=== PATIENT | female | born 1950 | race Caucasian/White ===

== ENCOUNTER 2020-05-07 06:40 | Outpatient (NON) | payer MEDICARE, SELFPAY ==
[2020-05-07 17:47] LABS: SARS-CoV-2 RNA PCR Negative
== END 2020-05-07 06:41 ==
PROVIDERS: PCP Internal Medicine
DX: Z20.828 Contact with and (suspected) exposure to other viral communicable diseases (principal); R05 Cough
CPT/HCPCS: 87635; C9803; U0003

== ENCOUNTER → 2020-09-26 11:18 | Outpatient (CLI) | payer MEDICARE, SELFPAY ==
--- NOTE | ~2020-09-26 | MR_ITS ---
EXAMINATION: MR brain/brain stem wo con EXAM DATE: 09/26/2020 12:07 INDICATION: R41.3 - Other amnesia amnesia, unable to focus, difficulty finding words alteration. TECHNIQUE: Magnetic resonance imaging (MRI) of the brain/brain stem obtained without contrast. Daryl chapa T1, axial diffusion, gradient echo (T2*), T1, T2, FLAIR sequences obtained. Comparison is made to prior examination from 08/29/2017. FINDINGS: There are no areas of restricted diffusion to suggest acute infarction. There is no acute hemorrhage seen on the T2*, a hemosiderin sensitive sequence. No intraparenchymal brain mass lesion. There is periventricular and subcortical T2/FLAIR signal hyperintensity, nonspecific but probably re lated to small vessel ischemic disease (microangiopathy). There are no extra-axial collections. Fl ow voids are seen in the cerebral arteries on the T2-weighted sequences consistent with their expecte d patency. The orbits are unremarkable. Soft tissue is unremarkable. IMPRESSION: 1. No acute intracranial findings. 2. Mild microangiopathy. Reviewed, dictated and finalized at location A. 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
== END ==
PROVIDERS: Visit Provider Family Medicine
DX: R41.3 Other amnesia (principal); R93.0 Abnormal findings on diagnostic imaging of skull and head, not elsewhere classified
CPT/HCPCS: 70551

== ENCOUNTER → 2020-11-14 09:18 | Outpatient (CLI) | payer MEDICARE, SELFPAY ==
--- NOTE | ~2020-11-14 | DEXA_ITS ---
Bone Density Report Name: Sheila Daily Age: 70 Sex: Female Ethnicity: White Date of : 1950 Indication: postmenopausal; screening for osteoporosis; height loss; history of glucocorticoids; asthma or emphysema; hysterectomy; Referring Provider: PAVAN ARGUETA Study: Bone densitometry was performed. Exam Date: November 14, 2020 Accession number: [id number] Bone Density: Region BMD T-score Z-score Classification AP Spine (L1-L4) 0.999 -0.4 1.7 Normal Femoral Neck (Left) 0.584 -2.4 -0.5 Osteopenia Total Hip (Left) 0.833 -0.9 0.7 Normal Femoral Neck (Right) 0.608 -2.2 -0.3 Osteopenia Total Hip (Right) 0.776 -1.4 0.2 Osteopenia Total Hip Mean 0.805 -1.2 0.5 Osteopenia World Health Organization criteria for BMD impression classify patients as: Normal (T-score at or above -1.0), Osteopenia (T-score between -1.0 and -2.5), or Osteoporosis (T-score at or below -2.5). 10-year Fracture Risk(1): Major Osteoporotic Fracture 20% Hip Fracture 5.2% Reported Risk Factors: [place] (), Neck BMD=0.584, BMI=37.9, glucocorticoids (1) FRAX(R) Version 3.08. Fracture probability calculated for an untreated patient. Fracture probability may be lower if the patient has received treatment. Clinical Information Provided by Patient: Has taken Glucocorticoids Has used the following medications: Vitamin D, Calcium, Xoliar injections, MTV, Prednisone in the past Has the following medical conditions: Asthma or Emphysema, Hysterectomy Patient maximum height was 66.5 Menopause Age: 42 No regular weight bearing exercise Drinks caffeinated beverages Onset of menses at age 12 Number of children 3 Impression: The patient has low bone mass, based on the Left Femoral Neck T-score. The patient has an estimated ten-year risk of hip fracture of 5.2% and an estimated ten-year risk of major fracture of 20%, based on the WHO FRAX algorithm. The patient has risk factors, including: history of glucocorticoid therapy. Discussion: BONE DENSITY IS LOW AT ONE OR MORE SKELETAL SITES. THE PATIENT'S BMD AND CLINICAL RISK FACTORS CONTRIBUTE TO THIS PATIENT'S HIGH RISK OF FRACTURE. This patient's lowest T-score is low at one or more skeletal sites. It meets the World Health Organization's (WHO) criteria for ?low bone mass? (T-score between -1.0 and -2.5). The patient's 10-year risk of hip fracture and 10 year risk of a major osteoporotic fracture as calculated by FRAX exceeds the threshold where pharmacological therapy is recommended by the National Osteoporosis Foundation (NOF). However, all treatment decisions require clinical judgment and consideration of individual patient factors, including patient preferences, comorbidities, previous drug use, risk factors not captured in the FRAX model (e.g., frailty, falls, vitamin D
--- NOTE | ~2020-11-14 | MM_ITS ---
EXAMINATION: MM screening migdalia BI w norma HISTORY: Screening mammogram TECHNIQUE: Craniocaudal and mediolateral oblique 3-D tomosynthesis images were obtained and synthetic 2-D images were generated. CAD analysis was submitted and interpreted. COMPARISON: 04/23/2019, 11/29/2016 bilateral digital screening mammogram examinations BREAST PARENCHYMAL COMPOSITION: The breasts are almost entirely fatty. FINDINGS: There is no evidence of suspicious mass, calcification, or architectural distortion to sugg est malignancy in either breast. There has been no suspicious interval change. IMPRESSION: 1. No mammographic evidence of malignancy. 2. Recommend routine screening mammography in one year. BI-RADS Category 1: Negative Reviewed, dictated and finalized at location A.
== END ==
PROVIDERS: PCP Family Medicine; Visit Provider Family Medicine
DX: Z12.31 Encounter for screening mammogram for malignant neoplasm of breast (principal); Z13.820 Encounter for screening for osteoporosis; Z78.0 Asymptomatic menopausal state; M85.852 Other specified disorders of bone density and structure, left thigh; M85.851 Other specified disorders of bone density and structure, right thigh
CPT/HCPCS: 77063; 77067; 77080

== ENCOUNTER 2020-12-22 11:29 | Emergency (ER) | payer MEDICARE, SELFPAY ==
--- NOTE | ~2020-12-22 | CT_ITS ---
EXAMINATION: CT cervical spine wo con DATE: 12/22/2020 12:37 INDICATION: Syncopal episode and fall with head injury. TECHNIQUE: Computed tomography (CT) of the cervical spine was performed without intravenous contrast. Automated exposure control and iterative reconstruction technique were employed. The dose-length pro duct was 472.38 mGy-cm. COMPARISON: Cervical spine MR dated 04/07/2016 FINDINGS: Straightening of the normal cervical lordosis. Vertebral body heights are normal. No fracture. Severe disc height loss at C4-C5 and C6-C7, moderate disc height loss at C5-C6 and mild disc height loss at the remaining levels from C2-C3 through T1-T2. 2.1 cm left thyroid nodule. Cervical soft tissues are otherwise unremarkable. Visualized airway and apices of the lungs are clear. The following disc leve ls are specifically discussed: C2-C3: There is no uncovertebral joint osteoarthritis. There is mild bilateral facet joint osteoarthr itis. There is no neural foraminal stenosis. There is no central canal stenosis. C3-C4: Disc is bulging. There is mild left and mild to moderate right uncovertebral joint osteoarthri tis. There is mild right and moderate left facet joint osteoarthritis. There is mild right and mild t o moderate left neural foraminal stenosis. There is no central canal stenosis. C4-C5: Posterior disc osteophyte complex. There is severe bilateral uncovertebral joint osteoarthriti s. There is mild bilateral facet joint osteoarthritis. There is moderate bilateral neural foraminal s tenosis. There is mild central canal stenosis. C5-C6: Posterior disc osteophyte complex. There is moderate left and severe right uncovertebral joint osteoarthritis. There is mild bilateral facet joint osteoarthritis. There is moderate bilateral neur al foraminal stenosis. There is mild central canal stenosis. C6-C7: Posterior disc osteophyte complex. There is severe bilateral uncovertebral joint osteoarthriti s. There is mild bilateral facet joint osteoarthritis. There is moderate right and moderate to severe left neural foraminal stenosis. There is mild central canal stenosis. C7-T1: There is no uncovertebral joint osteoarthritis. There is severe bilateral facet joint osteoart hritis. There is mild bilateral neural foraminal stenosis. There is no central canal stenosis. IMPRESSION: 1. Interval progression of moderate to severe cervical spondylosis. No acute osseous abnormality. 2. 2.1 cm left thyroid nodule. Consider follow-up thyroid ultrasound for risk stratification. Reviewed, dictated and finalized at location A. IMPRESSION: 1. Interval progression of moderate to severe cervical spondylosis. No acute os seous abnormality. 2. 2.1 cm left thyroid nodule. Consider follow-up thyroid ultrasound for risk s tratification.
--- NOTE | ~2020-12-22 | CT_ITS ---
EXAMINATION: CT abdomen pelvis w con DATE: 12/22/2020 12:36 INDICATION: Abdominal pain. TECHNIQUE: Computed tomography (CT) of the abdomen and pelvis was performed with 100 mL Omnipaque 350 intravenous contrast. Automated exposure control and iterative reconstruction technique were employe d. The dose-length product was 1384.38 mGy-cm. COMPARISON: None. FINDINGS: The visualized portions of the lung bases demonstrate mild atelectasis. No pleural effusion . The heart size is normal. No pericardial effusion. There is a small sliding hiatal hernia. There ar e surgical changes of the stomach. The liver and spleen are normal. The common duct is dilated to 11 mm status post cholecystectomy, likely not clinically significant given the normal liver function sean ts. The pancreas, adrenal glands, and left kidney are normal. There are cysts in right kidney measuri ng up to 15 mm. There are bilateral inguinal hernias containing fat. There are no dilated loops of stephanie wel. The appendix is not visualized. There are no pathologically enlarged lymph nodes. There is no fr ee intraperitoneal fluid. There is severe lower lumbar spondylosis. IMPRESSION: 1. Small sliding hiatal hernia. 2. Bilateral inguinal hernias containing fat. Reviewed, dictated and finalized at location A.
--- NOTE | ~2020-12-22 | CT_ITS ---
EXAMINATION: CT brain wo con DATE: 12/22/2020 12:37 INDICATION: Syncopal episode and fall. TECHNIQUE: Computed tomography (CT) of the head was performed without intravenous contrast. Sagittal and coronal reconstructions were performed. Automated exposure control and iterative reconstruction t echnique were employed. The dose-length product was 681.00 mGy-cm. COMPARISON: Brain MR dated 09/26/2020 FINDINGS: No fracture. No acute intracranial hemorrhage, acute infarction or abnormal extra axial fluid collect ion. There is minimal scattered white matter hypoattenuation consistent with chronic small vessel isc hemic disease. Symmetric prominence of the sulci consistent with mild age-appropriate diffuse cerebra l volume loss. Ventricles are normal and symmetric. No mass/mass effect. Changes of bilateral intrao cular lens replacement. The orbits, paranasal sinuses and mastoid air cells are normal. IMPRESSION: 1. No fracture or acute intracranial process. 2. Age-related changes including mild volume loss and minimal scattered white matter hypoattenuation consistent with chronic small vessel ischemic disease. Reviewed, dictated and finalized at location A. IMPRESSION: 1. No fracture or acute intracranial process. 2. Age-related changes including mild volume loss and minimal scattered white m atter hypoattenuation consistent with chronic small vessel ischemic disease.
[2020-12-22 11:36] VITALS: BP 136/72; PULSE 83; RESP 21; TEMP 36.9; O2SAT 96
--- NOTE | 2020-12-22 11:36 | ECG_ITS ---
Measurements Intervals [place] Rate: 79 P: 55 UT: 148 QRS: -10 QRSD: 79 T: 44 QT: 339 QTc: 389 Interpretive Statements SINUS RHYTHM BASELINE ARTIFACT- I, III, AVR, AVL, AVF, V1-V6 BORDERLINE ECG Electronically Signed On 12-22-2020 13:23:58 CDT by Bronson Triplett D.O.
[2020-12-22 11:40] VITALS: PULSE 81
[2020-12-22 11:50] LABS: Basophils Absolute Auto 0.1 K/mm3 (0.0-0.1); Basophils Percent Auto 0.7 % (0.2-1.2); Eosinophils Absolute Auto 0.2 K/mm3 (0-0.3); Hematocrit 43.6 % (37.0-47.0); Hemoglobin 13.4 g/dL (12.0-15.0); Immature Granulocyte Absolute 0.04 K/mm3 (0.00-0.031); Immature Granulocyte Percent A 0.4 % (0-0.5); Mean Corpuscular HGB Conc 30.7 g/dl (32-36); Mean Corpuscular Hemoglobin 25.7 pg (26-34); Mean Corpuscular Volume 83.7 fl (80-100); Mean Platelet Volume 8.6 fl (7.4-10.4); Monocytes Absolute Auto 0.8 K/mm3 (0.1-0.6); Monocytes Percent Auto 7.6 % (2.6-8.5); Neutrophils Absolute Auto 6.7 K/mm3 (1.3-6.7); Neutrophils Percent Auto 62.3 % (45.5-73.1); Platelet Count Result 356 k/mm3 (150-375); Red Blood Count 5.21 M/mm3 (4.2-5.4); Red Cell Distribution Width 17.4 % (11.5-14.5); White Blood Count 10.8 K/mm3 (4.5-10.0)
[2020-12-22 12:01] LABS: Anion Gap 8 mmol/L (8-16); Blood Urea Nitrogen 17 mg/dL (7-17); Calcium 10.4 mg/dL (8.4-10.2); Carbon Dioxide 24 mmol/L (22-30); Chloride 106 mmol/L (98-107); Estimated CRCL calculation 73 ml/min; Estimated Glomerular Filt Rate > 60; Glucose 113 mg/dL (65-105); Potassium 4.6 mmol/L (3.4-5.0); Sodium 138 mmol/L (137-145)
--- NOTE | 2020-12-22 12:11 | PC.NURSE ---
Called Lab added Hepatic Lip talked to Luis Fernando
[2020-12-22] MEDS: LACTATED RINGERS 1,000 ML 999 ML IV CONT (12:13)
[2020-12-22] MEDS: PANTOPRAZOLE SODIUM IV 40 MG VIAL IV PUSH (12:21)
[2020-12-22 12:39] LABS: Add Urine Microscopic? NO; Appearance Urine Clear (Clear); Bilirubin Urine Negative (Negative); Blood Urine Negative (Negative); Color Urine Yellow (Yellow); Glucose Urine UA Negative (Negative); Ketones Urine Negative (Negative); Leukocyte Esterase Ur Negative LEU/UL (Negative); Nitrate Urine Negative (Negative); Protein Urine Negative (Negative); Specific Grav Ur 1.013 (1.001-1.035); Urobilinogen Urine Negative mg/dL (<2.0)
[2020-12-22 12:42] LABS: Alanine Aminotransferase 33 U/L (4-35); Albumin Level 4.1 g/dL (3.5-5.1); Alkaline Phosphatase 64 U/L (38-126); Aspartate Amino Transferase 26 U/L (14-36); Bilirubin,Total 0.4 mg/dL (0.2-1.3); Lipase 38 U/L (23-300)
[2020-12-22 12:55] VITALS: BP 94/77; PULSE 64; RESP 15; O2SAT 95
[2020-12-22 14:05] VITALS: BP 103/59; PULSE 63; RESP 20; O2SAT 96
--- NOTE | 2020-12-22 14:11 | ED.GENADULT ---
HPI - General Adult General Chief complaint: Syncope Stated complaint: syncope, hit head Time Seen by Provider: 12/22/20 11:38 Source: patient, family and RN notes reviewed Mode of arrival: ambulatory Limitations: no limitations History of Present Illness HPI narrative: Patient is 70-year-old female who notes that she sustained a syncopal episode while leaning forward 4 days ago in the middle of the night was able to get up and get back into bed patient noted that she did hit her head and has since had some dizziness and headache since the injury with some mild neck pain low back pain patient notes she had been experiencing some mild abdominal pain which has improved and nearly resolved patient has been using her prescribed and gsci-hkz-fldnigk medications for her symptoms patient is followed by Dr. Rizvi patient on arrival to emergency department is in the room in no distress resting comfortably patient lives at home with her Related Data Home Medications Medication Instructions Recorded Confirmed calcium carbonate 500 mg calcium 500 mg PO DAILY 06/10/19 10/12/20 (1,250 mg) chewable tablet cetirizine 10 mg capsule PO 06/10/19 10/12/20 cyanocobalamin (vitamin B-12) 50 50 mcg PO DAILY 06/10/19 10/12/20 mcg tablet esomeprazole magnesium 20 mg 20 mg PO DAILY 06/10/19 10/12/20 capsule,delayed release fluticasone furoate 100 1 inhalation INHALATION DAILY 06/10/19 10/12/20 mcg-vilanterol 25 mcg/dose inhalation powder levalbuterol tartrate 45 2 inhalation INHALATION Q6H 06/10/19 10/12/20 mcg/actuation aerosol inhaler montelukast 10 mg tablet 10 mg PO DAILY 06/10/19 10/12/20 tiotropium bromide 2.5 2 inhalation INHALATION QAM 06/10/19 10/12/20 mcg/actuation mist for inhalation fluticasone propionate 50 1 spray NASAL BID 04/14/20 10/12/20 mcg/actuation nasal spray,suspension olopatadine 0.6 % nasal spray 2 spray NASAL BID 04/14/20 10/12/20 alprazolam 0.5 mg tablet 0.5 mg PO DAILY PRN 05/19/20 10/12/20 cholecalciferol (vitamin D3) 125 125 mcg PO DAILY 05/19/20 10/12/20 mcg (5,000 unit) capsule omalizumab 150 mg subcutaneous 300 mg SUB-Q .p7urefi ea 05/19/20 10/12/20 solution Allergies Allergy/AdvReac Type Severity Reaction Status Date / Time adhesive Allergy Unknown unknown Verified 12/22/20 11:40 latex Allergy Unknown unknown Verified 12/22/20 11:40 Review of Systems Review of Systems: All systems reviewed & are unremarkable except as noted in HPI and below PMFSH Past Medical History Medical History Acute midline low back pain without sciatica Allergies Asthma Bilateral temporomandibular joint pain Breast pain, right Cataract COPD (chronic obstructive pulmonary disease) Counseling on health promotion and disease prevention CPAP (continuous positive airway pressure) dependence Depression Dysuria Encounter for medication management Fatigue Fibromyalgia (~07/2019) Generalized osteoarthritis of multiple sites Incontinence Leukocytosis Measles Mild cognitive impairment Mumps Obesity Obstructive sleep apnea on CPAP Orthostasis Osteoarthritis Other specified counseling Polypharmacy Prediabetes TMJ (temporomandibular joint disorder) Vertigo Surgical History Surgical History History of bariatric surgery History of cholecystectomy History of partial hysterectomy Family History Family History Father Family history of primary malignant neoplasm of liver Family history of alcoholism, Onset Age: 72 Family history of liver disease Carcinoma of colon Mother Asthma, Onset Age: 42 Social History Social History Smoking packs per day: 1 Smoking cigarettes per day: 20.0 Years smoked: 20 Smoking pack-years: 20.00 Smoking status: Former smoker
== END 2020-12-22 14:26 | disposition home or self-care (01) ==
PROVIDERS: Emergency Medicine Emergency Medical Services; Emergency Provider Family Medicine; PCP Family Medicine
DX: R55 Syncope and collapse (principal); R10.9 Unspecified abdominal pain; S16.1XXA Strain of muscle, fascia and tendon at neck level, initial encounter; S09.90XA Unspecified injury of head, initial encounter; M47.812 Spondylosis without myelopathy or radiculopathy, cervical region; E04.1 Nontoxic single thyroid nodule; F17.210 Nicotine dependence, cigarettes, uncomplicated; J45.909 Unspecified asthma, uncomplicated; F32.9 Major depressive disorder, single episode, unspecified; M79.7 Fibromyalgia; M19.90 Unspecified osteoarthritis, unspecified site; G47.30 Sleep apnea, unspecified; W19.XXXA Unspecified fall, initial encounter
CPT/HCPCS: 36415; 70450; 72125; 74177; 80048; 80076; 81003; 83690; 85025; 93005; 96361; 96374; 99284; C9113; J7120; Q9967

== ENCOUNTER 2020-12-25 13:47 | Outpatient (CLI) | payer MEDICARE, SELFPAY ==
--- NOTE | ~2020-12-25 | US_ITS ---
EXAMINATION: US thyroid DATE: 12/25/2020 14:55 INDICATION: Nontoxic single thyroid nodule. TECHNIQUE: Multiple ultrasound images of the thyroid were obtained. COMPARISON: None. FINDINGS: The right thyroid lobe measures 4.3 x 2.1 x 1.2 cm. The left thyroid lobe measures 5.3 x 2.7 x 1.5 c m. In the left thyroid lobe, there is a 2.8 cm solid, hypoechoic, licpl-spbp-xadf nodule with smooth margin without echogenic foci (TI-RADS TR4). IMPRESSION: 1. Left thyroid nodule. Ultrasound-guided fine-needle aspiration is recommended. Reviewed, dictated and finalized at location A. IMPRESSION: 1. Left thyroid nodule. Ultrasound-guided fine-needle aspiration is recommended .
== END 2020-12-25 13:48 | disposition home or self-care (01) ==
PROVIDERS: PCP Family Medicine; Visit Provider Family Medicine
DX: E04.1 Nontoxic single thyroid nodule (principal)
CPT/HCPCS: 76536

== ENCOUNTER 2021-01-03 12:48 | Emergency (ER) | payer MEDICARE, SELFPAY ==
--- NOTE | ~2021-01-03 | XR_ITS ---
EXAMINATION: XR chest 2V DATE: 01/03/2021 15:04 INDICATION: Cough, fever and left upper quadrant pain radiating to the back. TECHNIQUE: frontal and lateral views of the chest were obtained. COMPARISON: Chest radiograph dated 06/14/2016 FINDINGS: Subtle airspace opacity in the medial right lower lung zone. No pulmonary edema, pleural effusion or pneumothorax. Cardiomediastinal silhouette is normal. Mild thoracic spondylosis. IMPRESSION: 1. Mild airspace opacity in the right lower lung zone which could represent atelectasis and/or pneumo mikey. Reviewed, dictated and finalized at location A. IMPRESSION: 1. Mild airspace opacity in the right lower lung zone which could represent ate lectasis and/or pneumonia.
[2021-01-03 12:50] VITALS: BP 123/99; PULSE 82; RESP 21; TEMP 38.1; O2SAT 97
--- NOTE | 2021-01-03 12:58 | ECG_ITS ---
Measurements Intervals [place] Rate: 79 P: 59 AL: 129 QRS: 1 QRSD: 84 T: 56 QT: 338 QTc: 388 Interpretive Statements SINUS RHYTHM VENTRICULAR PREMATURE COMPLEX BASELINE ARTIFACT- I, II, III, AVR, AVL, AVF, V4-V5 BORDERLINE ECG Electronically Signed On 01-03-2021 17:58:36 CDT by Bronson Triplett D.O.
[2021-01-03] MEDS: SODIUM CHLORIDE 0.9% IV 1,000 ML 999 ML IV CONT (13:33)
[2021-01-03] MEDS: MORPHINE SULFATE (*CRX) 4 MG/ML INJ IV PUSH (13:35)
[2021-01-03] MEDS: ONDANSETRON INJ 4 MG/2 ML VIAL IV PUSH (13:35)
[2021-01-03 14:05] LABS: Basophils Absolute Auto 0.1 K/mm3 (0.0-0.1); Basophils Percent Auto 0.8 % (0.2-1.2); Eosinophils Absolute Auto 0.1 K/mm3 (0-0.3); Hematocrit 40.4 % (37.0-47.0); Hemoglobin 12.5 g/dL (12.0-15.0); Immature Granulocyte Absolute 0.11 K/mm3 (0.00-0.031); Immature Granulocyte Percent A 0.9 % (0-0.5); Lymphocytes Percent Auto 15.8 % (18.3-44.2); Mean Corpuscular HGB Conc 30.9 g/dl (32-36); Mean Corpuscular Volume 84.2 fl (80-100); Mean Platelet Volume 8.5 fl (7.4-10.4); Monocytes Absolute Auto 0.9 K/mm3 (0.1-0.6); Monocytes Percent Auto 7.2 % (2.6-8.5); Neutrophils Absolute Auto 9.4 K/mm3 (1.3-6.7); Neutrophils Percent Auto 74.3 % (45.5-73.1); Platelet Count Result 354 k/mm3 (150-375); Red Cell Distribution Width 17.8 % (11.5-14.5); White Blood Count 12.6 K/mm3 (4.5-10.0)
--- NOTE | 2021-01-03 14:10 | PC.NURSE ---
Pt ambulatory steady gait to BR
[2021-01-03 14:15] LABS: Alanine Aminotransferase 19 U/L (4-35); Alkaline Phosphatase 75 U/L (38-126); Anion Gap 8 mmol/L (8-16); Aspartate Amino Transferase 24 U/L (14-36); Bilirubin,Total 0.2 mg/dL (0.2-1.3); Blood Urea Nitrogen 21 mg/dL (7-17); Calcium 10.3 mg/dL (8.4-10.2); Carbon Dioxide 25 mmol/L (22-30); Chloride 105 mmol/L (98-107); Estimated CRCL calculation 66 ml/min; Estimated Glomerular Filt Rate > 60; Glucose 114 mg/dL (65-105); Lipase 84 U/L (23-300); Potassium 4.4 mmol/L (3.4-5.0); Sodium 138 mmol/L (137-145)
[2021-01-03 14:27] LABS: Troponin I < 0.012 ng/mL (0.000-0.034)
--- NOTE | 2021-01-03 14:50 | ED.GENADULT ---
HPI - General Adult General Chief complaint: Abdominal Pain Stated complaint: abd pain x12 hours Time Seen by Provider: 01/03/21 12:49 History of Present Illness HPI narrative: Patient is a 70-year-old female who presents ER with multiple issues. Patient reports has been having a lot of sinus congestion over the last 3 days with productive cough and she is coughing up enough mucus that she sometimes has to change her clothes. She denies that she is having any emesis or posttussive emesis. Found to be febrile today but had not been febrile prior to that. She reports she is also started having pain in her sides basically the upper abdomen versus lower chest. Unsure if it is related to coughing. No urinary frequency/urgency/dysuria. Had been seen by her primary care recently and had been having dark stools ended up being related to taking Pepto-Bismol as she had performed multiple fecal occult test that were negative for blood. Patient is currently taking Nexium. Related Data Home Medications Medication Instructions Recorded Confirmed calcium carbonate 500 mg calcium 500 mg PO DAILY 06/10/19 12/29/20 (1,250 mg) chewable tablet cetirizine 10 mg capsule PO 06/10/19 12/29/20 cyanocobalamin (vitamin B-12) 50 50 mcg PO DAILY 06/10/19 12/29/20 mcg tablet esomeprazole magnesium 20 mg 20 mg PO DAILY 06/10/19 12/29/20 capsule,delayed release fluticasone furoate 100 1 inhalation INHALATION DAILY 06/10/19 12/29/20 mcg-vilanterol 25 mcg/dose inhalation powder levalbuterol tartrate 45 2 inhalation INHALATION Q6H 06/10/19 12/29/20 mcg/actuation aerosol inhaler montelukast 10 mg tablet 10 mg PO DAILY 06/10/19 12/29/20 tiotropium bromide 2.5 2 inhalation INHALATION QAM 06/10/19 12/29/20 mcg/actuation mist for inhalation fluticasone propionate 50 1 spray NASAL BID 04/14/20 12/29/20 mcg/actuation nasal spray,suspension olopatadine 0.6 % nasal spray 2 spray NASAL BID 04/14/20 12/29/20 alprazolam 0.5 mg tablet 0.5 mg PO DAILY PRN 05/19/20 12/29/20 cholecalciferol (vitamin D3) 125 125 mcg PO DAILY 05/19/20 12/29/20 mcg (5,000 unit) capsule omalizumab 150 mg subcutaneous 300 mg SUB-Q .[id number] ea 05/19/20 12/29/20 solution Allergies Allergy/AdvReac Type Severity Reaction Status Date / Time adhesive Allergy Unknown unknown Verified 01/03/21 12:57 latex Allergy Unknown unknown Verified 01/03/21 12:57 Review of Systems Review of Systems: All systems reviewed & are unremarkable except as noted in HPI and below Constitutional: Constitutional: Denies chills, Reports fatigue, Reports fever(s) and Denies weakness ENT: Reports nasal congestion and Denies sore throat Cardiovascular: Cardiovascular: Reports chest pain, Denies rapid heart rate and Denies radiating jaw, neck or arm pain Respiratory: Respiratory: Reports cough, Denies dyspnea and Denies wheezing Gastrointestinal: Gastrointestinal: Reports abdominal pain, Denies diarrhea, Denies nausea and Denies vomiting PMFSH Past Medical History Medical History Acute midline low back pain without sciatica Allergies Asthma Bilateral temporomandibular joint pain Breast pain, right Cataract COPD (chronic obstructive pulmonary disease) Counseling on health promotion and disease prevention CPAP (continuous positive airway pressure) dependence Depression Dysuria Encounter for medication management Fatigue Fibromyalgia (~07/2019) Generalized osteoarthritis of multiple sites Incontinence Leukocytosis Measles Mild cognitive impairment [place] Obesity Obstructive sleep apnea on CPAP Orthostasis Osteoarthritis Other specified counseling Polypharmacy Prediabetes TMJ (temporomandibular joint disorder) Vertigo Surgical History Surgical History History of bariatric surgery History of cholecystectomy History of partial hysterectomy Family History Family
[2021-01-03 14:54] LABS: Add Urine Microscopic? YES; Appearance Urine Clear (Clear); Bacteria Urine Trace /hpf; Bilirubin Urine Negative (Negative); Blood Urine 1+ (Negative); Color Urine Straw (Yellow); Glucose Urine UA Negative (Negative); Ketones Urine Negative (Negative); Leukocyte Esterase Ur Negative LEU/UL (Negative); Mucus Urine Rare /lpf; Nitrate Urine Negative (Negative); Protein Urine Negative (Negative); RBC Urine 0-2 /hpf (0-2); Specific Grav Ur 1.009 (1.001-1.035); Squamous Epithelial Cell Urine Occasional /hpf (Few); Urobilinogen Urine Negative mg/dL (<2.0)
[2021-01-03 16:08] VITALS: BP 113/73; PULSE 73; RESP 17; TEMP 37.1; O2SAT 94
== END 2021-01-03 16:10 | disposition home or self-care (01) ==
PROVIDERS: Emergency Provider Emergency Medicine; PCP Family Medicine
DX: J18.9 Pneumonia, unspecified organism (principal); J45.909 Unspecified asthma, uncomplicated; J44.9 Chronic obstructive pulmonary disease, unspecified; G47.30 Sleep apnea, unspecified; M79.7 Fibromyalgia; M19.90 Unspecified osteoarthritis, unspecified site
CPT/HCPCS: 36415; 71046; 80053; 81001; 83690; 84484; 85025; 93005; 96361; 96374; 96375; 99284; J0131; J2270; J2405; J7030

== ENCOUNTER 2021-03-09 11:37 | Outpatient (CLI) | payer MEDICARE, SELFPAY ==
[2021-03-09 11:59] LABS: Hematocrit 46.9 % (37.0-47.0); Hemoglobin 14.6 g/dL (12.0-15.0)
== END 2021-03-09 11:38 | disposition home or self-care (01) ==
PROVIDERS: Anesthesiology; PCP Family Medicine; Visit Provider Otolaryngology
DX: D64.9 Anemia, unspecified (principal)
CPT/HCPCS: 36415; 85014; 85018

== ENCOUNTER 2021-03-12 04:52 | Day surgery (SDC) | payer MEDICARE, SELFPAY ==
[2021-03-04 14:53] VITALS: BMI 37.8
--- NOTE | 2021-03-10 13:38 | PM.IMHP ---
H&P: HPI History of Present Illness Date/Time: 03/10/21 13:38 patient presents for planned surgical procedure. No change in medical history. No change in symptoms. Chief Complaint: Left thyroid nodule Review of Systems Constitutional: Constitutional: Denies fatigue, Denies fever(s) and Denies lethargy Eyes: Eyes: Denies blurry vision and Denies change in vision ENT: Reports as per HPI Cardiovascular: Cardiovascular: Denies chest pain Respiratory: Respiratory: Denies cough Endocrine: Endocrine: Denies fatigue Hematologic/Lymphatic: Hematologic/Lymphatic: Denies easy bleeding, Denies easy bruising and Denies lymphadenopathy Allergic/Immunologic: Allergic/Immunologic: Denies seasonal rhinorrhea [facility] Past Medical History Medical History (Updated 01/26/21 @ 16:39 by Jackie Rizvi MD) Acute midline low back pain without sciatica Age related osteoporosis Allergies Asthma Bilateral temporomandibular joint pain Breast pain, right Cataract COPD (chronic obstructive pulmonary disease) Counseling on health promotion and disease prevention CPAP (continuous positive airway pressure) dependence Depression Dysuria Encounter for medication management Fatigue Fibromyalgia (~07/2019) Generalized osteoarthritis of multiple sites Incontinence Leukocytosis Measles Mild cognitive impairment [place] Obesity Obstructive sleep apnea on CPAP Orthostasis Osteoarthritis Other specified counseling Polypharmacy Prediabetes TMJ (temporomandibular joint disorder) Vertigo Surgical History Surgical History History of bariatric surgery History of cholecystectomy History of partial hysterectomy Family History Family History Father Family history of primary malignant neoplasm of liver Family history of alcoholism, Onset Age: 72 Family history of liver disease Carcinoma of colon Mother Asthma, Onset Age: 42 Social History Social History Smoking packs per day: 1 Smoking cigarettes per day: 20.0 Years smoked: 20 Smoking pack-years: 20.00 Smoking status: Never smoker Tobacco type: cigarettes Smoking end date: 07/24/88 Alcohol intake: never Substance use: never Substance use type: marijuana Additional living arrangements comments: [facility] Spiritual care concerns: No Meds Home Medications and Allergies Home Medications Medication Instructions Recorded Confirmed Type calcium carbonate 500 mg calcium 500 mg PO BID 06/10/19 03/09/21 History (1,250 mg) chewable tablet cetirizine 10 mg capsule 10 mg PO BID 06/10/19 03/09/21 History cyanocobalamin (vitamin B-12) 50 50 mcg PO DAILY 06/10/19 03/09/21 History mcg tablet fluticasone furoate 100 1 inhalation INHALATION QAM 06/10/19 03/09/21 History mcg-vilanterol 25 mcg/dose inhalation powder levalbuterol tartrate 45 2 inhalation INHALATION Q4-6H PRN 06/10/19 03/09/21 History mcg/actuation aerosol inhaler montelukast 10 mg tablet 10 mg PO HS 06/10/19 03/09/21 History tiotropium bromide 2.5 2 inhalation INHALATION QAM 06/10/19 03/09/21 History mcg/actuation mist for inhalation fluticasone propionate 50 1 spray NASAL BID 04/14/20 03/09/21 History mcg/actuation nasal spray,suspension olopatadine 0.6 % nasal spray 2 spray NASAL BID 04/14/20 03/09/21 History alprazolam 0.5 mg tablet 0.5 mg PO HS 05/19/20 03/09/21 History cholecalciferol (vitamin D3) 125 125 mcg PO DAILY 05/19/20 03/09/21 History mcg (5,000 unit) capsule omalizumab 150 mg subcutaneous 300 mg SUB-Q .[id number] ea 05/19/20 03/09/21 History solution blood-glucose meter #1 ea 05/25/20 03/09/21 Rx lancets #100 ea 05/25/20 03/09/21 Rx oxybutynin chloride 5 mg tablet 5 mg PO BID #180 tablet 11/10/20 03/09/21 Rx blood sugar diagnostic #50 ea 01/18/21 03/09/21 Rx buspirone 10 mg tablet
[2021-03-12] VITALS (14 sets, daily range): BP systolic 107–131; BP diastolic 60–79; PULSE 67–87; RESP 10–20; TEMP 35.9–36.7; O2SAT 94–98; BMI 38.9; BMI 36.2
--- NOTE | 2021-03-12 07:06 | WPDHPUPDATE1 ---
History and Physical Update Update Date/Time: 03/12/21 07:06 History and Physical has been reviewed, including an updated exam of the patient. There are NO changes in the patient's condition. Risks, benefits, and alternatives have been discussed and questions answered. Patient agrees to proceed with procedure.
--- NOTE | 2021-03-12 09:49 | WPDANESEPPF ---
Anes - Initial Pre Proc Eval Procedure: Operation Date: 03/12/21 11:00 Proposed Procedures p Left Thyroidectomy - Aaron Ryan MD Date/Time: 03/12/21 09:49 Surgeon: Aaron Ryan MD Pre Op Diagnosis: left thyroid mass Patient Data Age: 70 Gender: F Height: 1.63 m Weight: 102.8 kg Last Vital Signs Temp 36.4 C 03/12/21 09:42 Pulse 74 03/12/21 09:42 Resp 18 03/12/21 09:42 BP 115/65 03/12/21 09:42 Pulse Ox 97 03/12/21 09:42 Allergies Allergy/AdvReac Type Severity Reaction Status Date / Time adhesive AdvReac Unknown Itching Verified 03/12/21 09:37 Home Medications Medication Instructions Recorded Confirmed Type calcium carbonate 500 mg calcium 500 mg PO BID 06/10/19 03/12/21 History (1,250 mg) chewable tablet cetirizine 10 mg capsule 10 mg PO BID 06/10/19 03/12/21 History cyanocobalamin (vitamin B-12) 50 50 mcg PO DAILY 06/10/19 03/12/21 History mcg tablet fluticasone furoate 100 1 inhalation INHALATION QAM 06/10/19 03/12/21 History mcg-vilanterol 25 mcg/dose inhalation powder levalbuterol tartrate 45 2 inhalation INHALATION Q4-6H PRN 06/10/19 03/12/21 History mcg/actuation aerosol inhaler montelukast 10 mg tablet 10 mg PO HS 06/10/19 03/12/21 History tiotropium bromide 2.5 2 inhalation INHALATION QAM 06/10/19 03/12/21 History mcg/actuation mist for inhalation fluticasone propionate 50 1 spray NASAL BID 04/14/20 03/12/21 History mcg/actuation nasal spray,suspension olopatadine 0.6 % nasal spray 2 spray NASAL BID 04/14/20 03/12/21 History alprazolam 0.5 mg tablet 0.5 mg PO HS 05/19/20 03/12/21 History cholecalciferol (vitamin D3) 125 125 mcg PO DAILY 05/19/20 03/12/21 History mcg (5,000 unit) capsule omalizumab 150 mg subcutaneous 300 mg [id number]-Q [id number] ea 05/19/20 03/12/21 History solution blood-glucose meter #1 ea 05/25/20 03/09/21 Rx lancets #100 ea 05/25/20 03/09/21 Rx oxybutynin chloride 5 mg tablet 5 mg PO BID #180 tablet 11/10/20 03/12/21 Rx blood sugar diagnostic #50 ea 01/18/21 03/09/21 Rx buspirone 10 mg tablet 10 mg PO HS tablet 01/20/21 03/12/21 History lubiprostone 24 mcg capsule 24 mcg PO ONCE PRN #90 cap 01/20/21 03/12/21 Rx methylphenidate HCl 20 mg 20 mg PO QAM #30 tablet 01/20/21 03/12/21 Rx tablet,extended release hydroxyzine HCl 10 mg tablet 10 mg PO BID PRN tablet 01/21/21 03/12/21 History esomeprazole magnesium 40 mg 40 mg PO BID #180 cap 02/08/21 03/12/21 Rx capsule,delayed release duloxetine 30 mg PO HS 03/04/21 03/12/21 History duloxetine 60 mg PO HS 03/04/21 03/12/21 History ferrous sulfate 325 mg PO DAILY 03/04/21 03/12/21 History lisinopril 10 mg PO HS 03/04/21 03/12/21 History methylphenidate HCl 20 mg PO QACLUNCH 03/04/21 03/12/21 History ondansetron 4 mg PO Q6-8H PRN 03/04/21 03/12/21 History sucralfate 1 g PO BID PRN 03/04/21 03/12/21 History Patient hx anesthesia problems: none Family hx anesthesia problems: none [facility] Past Medical History Medical History (Updated 01/26/21 @ 16:39 by Jackie Rizvi MD) Acute midline low back pain without sciatica Age related osteoporosis Allergies Asthma Bilateral temporomandibular joint pain Breast pain, right Cataract COPD (chronic obstructive pulmonary disease) Counseling on health promotion and disease prevention CPAP (continuous positive airway pressure) dependence Depression Dysuria Encounter for medication management Fatigue Fibromyalgia (~07/2019) Generalized osteoarthritis of multiple sites Incontinence Leukocytosis Measles Mild cognitive impairment [place] Obesity Obstructive sleep apnea on CPAP Orthostasis Osteoarthritis Other specified counseling Polypharmacy Prediabetes TMJ (temporomandibular joint disorder) Vertigo Surgical History Surgical History History of bariatric surgery History of cholecystectomy History of partial hysterectomy Family History Family History (Reviewed
[2021-03-12] MEDS: LACTATED RINGERS 1,000 ML 30 ML IV CONT ×2 (09:50→13:09)
[2021-03-12] MEDS: ACETAMINOPHEN 500 MG TABLET 1000 MG PO (09:54)
[2021-03-12] MEDS: ceFAZolin 2 GM/D5W 50 ML 2 GM/50 ML BAG IVPB (10:17)
--- NOTE | 2021-03-12 13:20 | W.PM.PROC2 ---
Procedure Note - Detailed Date of Procedure 03/12/21 Pre-op Diagnosis left thyroid nodule, coughing, choking Post-op Diagnosis same Procedure Performed left thyroid lobectomy Surgeon Aaron Ryan MD Public Relations Specialist Raffaele/Echo Anesthesia general Indications see above Findings left thyroid lobe removed nodule present within the low no extension, no parathyroids on specimen, recurrent laryngeal nerve identified and intact stimulated post procedure Description of Procedure the patient was correctly identified and consent was verified in the preoperative holding area. The patient was then brought to the operating room and a time-out was performed. General anesthesia was induced and endotracheal tube was secured the patient's airway and taped in the midline it was a nerve monitoring tube. The patient was then prepped and draped for the aforementioned procedure time-out was performed again. 5 cc 1% lidocaine with 1 100,000 parts epinephrine was injected deep to pre drawn surgical incision 2 cm above the sternal notch in the midline. Fifteen blade was utilized to make a skin incision Bovie electrocautery was utilized to dissect through the epidermis and dermis through the neck fat. Subplatysmal flaps were elevated superiorly and inferiorly. The midline raphae a was identified following the placement of dural hooks. Was dissected down to the thyroid capsule. The left thyroid capsule was then dissected using a combination of Bovie electrocautery ligature scissors and bipolar electrocautery. The superior and inferior thyroid vessels were identified and ligated. The middle thyroid vein was also identified and ligated. The inferior pole was rotated identifying Suzie triangle. Here the work it recurrent laryngeal nerve was identified and dissected superiorly to the cut cricoid thyroid joint. At this point the thyroid was largely free as it been dissected from the trachea as well. Bleeding was encountered near the cricothyroid joint this was controlled with the intermittent application of low energy bipolar electrocautery at setting of 5. Eventually the bleeding subsided. The thyroid was removed and the nerve was again stimulated noted to be intact. The wound was then copiously irrigated and hemostasis appeared adequate. The deep layers and a drain was placed and sutured to the right. The strap muscles were closed in the superior 70% using 3-0 interrupted Vicryl sutures. The platysma was also closed using 3-0 interrupted Vicryl sutures. The deep dermal layer again was closed using 3-0 interrupted Vicryl sutures. A subcuticular 4-0 Monocryl stitch was placed. Skin glue was then applied. Of note the JVP the drain filled quickly with 30 cc of dark blood. This was emptied the patient kept asleep and connected for approximately 15 minutes to monitor no further brisk bleeding events occurred. The patient was allowed to wake up and taken to the recovery room. I performed all dictated portions. Total blood loss including the MISHA drain approximately 55 cc total intraoperative blood loss approximately 25 cc there were no cough locations and I performed all dictated portions of the procedure. Estimated Blood Loss 25 Drains Yes Packing No Pathology yes Complications No immediate complications Condition stable Disposition PACU
[2021-03-12] MEDS: fentaNYL CITRATE INJ (*CRX) 100 MCG/2 ML VIAL 25 MCG IV PUSH ×8 (13:48→15:06)
--- NOTE | 2021-03-12 13:54 | SUR.PHASEI ---
1341; DR KNAPP AT BEDSIDE. DISCUSSING WITH PT TO STAY OVERNIGHT IN HOSPITAL. PT AGREED. DR RA BAILON JP.
[2021-03-12 14:32] LABS: Glucose Point of Care 137 mg/dl (65-105)
--- NOTE | 2021-03-12 15:07 | SUR.PHASEI ---
PT DOZING IN INTERVALS. RESP EVEN UNLABORED ON O2 2L NC. SPOUSE BRINGING CPAP AND MOUTH GUARD FROM HOME.
[2021-03-12] MEDS: CALCIUM CARBONATE (TUMS) 500 MG (200 MG ELEMENTAL) PO (18:21)
[2021-03-12] MEDS: OXYBUTYNIN CHLORIDE 5 MG TABLET PO (18:21)
[2021-03-12] MEDS: oxyCODONE HCL (*CRX) 5 MG TAB IR PO (21:21)
[2021-03-12] MEDS: ALPRAZolam (*CRX) 0.5 MG TABLET PO (21:21)
[2021-03-12] MEDS: DULoxetine HCL 30 MG CAPSULE.DR PO (21:22)
[2021-03-12] MEDS: MONTELUKAST SODIUM 10 MG TABLET PO (21:22)
[2021-03-12] MEDS: lisinopriL 10 MG TABLET PO (21:22)
[2021-03-12] MEDS: busPIRone HCL 10 MG TABLET PO (21:22)
[2021-03-12] MEDS: DULoxetine HCL 60 MG CAPSULE.DR PO (21:22)
[2021-03-12] MEDS: FLUTICASONE PROPIONATE 0.05% NA SPR 16 GM BTL (*BKC) 1 SPRAY NASAL (21:23)
[2021-03-13] MEDS: hydrOXYzine HCL 10 MG TABLET PO (02:29)
[2021-03-13] MEDS: ACETAMINOPHEN 325 MG TABLET PO (02:29)
[2021-03-13 06:39] VITALS: BP 112/68; PULSE 62; RESP 18; TEMP 36.4; O2SAT 97
== END 2021-03-13 08:05 | disposition home or self-care (01) ==
LOC: ANHSURGERY 13:20 → ANH3MED 16:04
PROVIDERS: PCP Family Medicine; Visit Provider Otolaryngology
PROC: (CPT 60220; principal; 2021-03-12 11:00)
DX: D34 Benign neoplasm of thyroid gland (principal); J44.9 Chronic obstructive pulmonary disease, unspecified; R73.03 Prediabetes; G47.33 Obstructive sleep apnea (adult) (pediatric); G31.84 Mild cognitive impairment of uncertain or unknown etiology; F32.9 Major depressive disorder, single episode, unspecified; M79.7 Fibromyalgia; E66.9 Obesity, unspecified; Z68.38 Body mass index [BMI] 38.0-38.9, adult; Z87.891 Personal history of nicotine dependence; Z98.84 Bariatric surgery status; Z79.899 Other long term (current) drug therapy
CPT/HCPCS: 60220; 82948; 88307; A9270; J0690; J2250; J2270; J3010; J7120

== ENCOUNTER 2021-11-20 20:20 | Emergency (ER) | payer MEDICARE, SELFPAY ==
[2021-11-20] VITALS (9 sets, daily range): BP systolic 96–130; BP diastolic 59–102; PULSE 63–84; RESP 12–22; TEMP 36.8; O2SAT 94–97
--- NOTE | 2021-11-20 | ECG_ITS ---
Measurements Intervals [place] Rate: 69 P: 29 TX: 179 QRS: -1 QRSD: 83 T: 32 QT: 386 QTc: 415 Interpretive Statements SINUS RHYTHM WITH SINUS ARRHYTHMIA LOW QRS VOLTAGE IN PRECORDIAL LEADS BORDERLINE ECG Electronically Signed On 11-21-2021 6:41:33 CDT by Bronson Triplett D.O.
--- NOTE | ~2021-11-20 | XR_ITS ---
EXAMINATION: XR chest 1V portable Exam Date/Time: 11/20/2021 20:25 CDT CLINICAL HISTORY: CHEST PALPATATIONS,TIRED,WEAK,DRUGS,HX HIGH BLOOD PRESSURE Comparison: 01/03/2021. RESULT: Lines, tubes, and devices: None. Lungs and pleura: Clear. Cardiomediastinal silhouette: Stable cardiomediastinal silhouette. Other: No acute osseous or upper abdominal finding. IMPRESSION: No acute cardiopulmonary process Reviewed, dictated and finalized at location K.
--- NOTE | 2021-11-20 20:20 | ED.OVERDOSE ---
HPI - Overdose General Chief Complaint: Overdose <Ju Garcia MD - Last Filed: 11/20/21 22:13> Stated Complaint: took 4-5 xanax after argument <Ju Garcia MD - Last Filed: 11/20/21 22:13> Time Seen by Provider: 11/20/21 22:12 <Ju Garcia MD - Last Filed: 11/20/21 22:13> History of Present Illness HPI Narrative: pt comes in via EMS b/c has h/o anxiety and sees dr kim but talking over phone due to covid not sure last time over a month or more she thinks and on xanax 0.5mg prn and today took 2 around 8am upset over family/kids and anxious then again around 11am and slept then woke up and can't remember when took 2 more after up trying to eat and started bawling again. pt says no s/h just wants to get away from everything. says cp and h/o this wiht her anxiety but also has heart issues so came in no other radiation of painn/v/d/n/sob/sweating/uri/neck or back pain/loc/neuro chagnes <Ju Garcia MD - Last Filed: 11/20/21 22:13> Related Data Home Medications: Home Medications Medication Instructions Recorded Confirmed calcium carbonate 500 mg calcium 500 mg PO BID 06/10/19 09/09/21 (1,250 mg) chewable tablet cetirizine 10 mg capsule 10 mg PO BID 06/10/19 09/09/21 cyanocobalamin (vitamin B-12) 50 50 mcg PO DAILY 06/10/19 09/09/21 mcg tablet fluticasone furoate 100 1 inhalation INHALATION QAM 06/10/19 09/09/21 mcg-vilanterol 25 mcg/dose inhalation powder levalbuterol tartrate 45 2 inhalation INHALATION Q4-6H PRN 06/10/19 09/09/21 mcg/actuation aerosol inhaler montelukast 10 mg tablet 10 mg PO HS 06/10/19 09/09/21 tiotropium bromide 2.5 2 inhalation INHALATION QAM 06/10/19 09/09/21 mcg/actuation mist for inhalation fluticasone propionate 50 1 spray NASAL BID 04/14/20 09/09/21 mcg/actuation nasal spray,suspension olopatadine 0.6 % nasal spray 2 spray NASAL BID 04/14/20 09/09/21 alprazolam 0.5 mg tablet 0.5 mg PO HS 05/19/20 09/09/21 omalizumab 150 mg subcutaneous 300 mg SUB-Q [id number] 05/19/20 09/09/21 solution buspirone 10 mg tablet 10 mg PO HS tablet 01/20/21 09/09/21 duloxetine 30 mg PO HS 03/04/21 09/09/21 duloxetine 60 mg PO HS 03/04/21 09/09/21 ferrous sulfate 325 mg PO DAILY 03/04/21 09/09/21 denosumab 60 mg/mL subcutaneous 60 mg SUBCUT [id number] 06/25/21 09/09/21 syringe <uJ Garcia MD - Last Filed: 11/20/21 22:13> Allergies/Adverse Reactions: Allergies Allergy/AdvReac Type Severity Reaction Status Date / Time adhesive AdvReac Unknown Itching Verified 09/09/21 11:38 <Ju Garcia MD - Last Filed: 11/20/21 22:13> Review of Systems Review of Systems: CONSTITUTIONAL: Denies fever, chills, or sweats. EYES: Denies visual changes, redness, or discharge. ENT: Denies rhinorrhea, congestion, sore throat, or otalgia. CARDIOVASCULAR: Denies palpitations, or edema. has cp RESPIRATORY: Denies cough or dyspnea. GASTROINTESTINAL: Denies abdominal pain, nausea, vomiting, or diarrhea. GENITOURINARY: Denies dysuria or hematuria. SKIN: Denies rash or itching. MUSCULOSKELETAL: Denies back pain, joint pain, or myalgia. NEUROLOGIC: Denies headache, numbness, or weakness. PSYCHIATRIC: Denies or depression. has anxieyt no s/h ideation <Ju Garcia MD - Last Filed: 11/20/21 22:13> PMFSH Past Medical History Medical History: Medical History Acute midline low back pain without sciatica Age related osteoporosis Allergies Asthma Bilateral temporomandibular joint pain Breast pain, right Cataract COPD (chronic obstructive pulmonary disease) Counseling on health promotion and disease prevention CPAP (continuous positive airway pressure) dependence Depression Dysuria Encounter for medication management Fatigue Fibromyalgia (~07/2019) Generalized osteoarthritis of multiple sites Incontinence Left thyroid nodule Leukocytosis Measles Mild cognitive impairment Mum
--- NOTE | 2021-11-20 20:28 | PC.NURSE ---
Contacted Poison control and spoke with Allyson, she stated to monitor for drowsiness and vitals. Allyson states peak is 2hours ago. She states to monitor for hypotension and drunk like symptoms, and to provide supportive care. She recommends UDS, tylenol and asa levels.
[2021-11-20 20:34] LABS: Glucose Point of Care 49 mg/dl (65-105)
--- NOTE | 2021-11-20 20:38 | PC.NURSE ---
Patients bedside glucose was 49, ERP notified. VORB to give box lunch and juice and to recheck after she finished eating.
[2021-11-20 20:45] LABS: Basophils Absolute Auto 0.1 K/mm3 (0.0-0.1); Basophils Percent Auto 0.7 % (0.2-1.2); Eosinophils Absolute Auto 0.2 K/mm3 (0-0.3); Eosinophils Percent Auto 2.7 % (0-4.4); Hematocrit 42.1 % (37.0-47.0); Hemoglobin 13.8 g/dL (12.0-15.0); Immature Granulocyte Absolute 0.02 K/mm3 (0.00-0.031); Immature Granulocyte Percent A 0.2 % (0-0.5); Lymphocytes Absolute Auto 2.93 K/mm3 (0.9-3.2); Lymphocytes Percent Auto 34.1 % (18.3-44.2); Mean Corpuscular HGB Conc 32.8 g/dl (32-36); Mean Corpuscular Hemoglobin 32.3 pg (26-34); Mean Corpuscular Volume 98.6 fl (80-100); Mean Platelet Volume 8.6 fl (7.4-10.4); Monocytes Absolute Auto 0.9 K/mm3 (0.1-0.6); Monocytes Percent Auto 10.8 % (2.6-8.5); Neutrophils Absolute Auto 4.4 K/mm3 (1.3-6.7); Neutrophils Percent Auto 51.5 % (45.5-73.1); Platelet Count Result 239 k/mm3 (150-375); Red Blood Count 4.27 M/mm3 (4.2-5.4); Red Cell Distribution Width 12.6 % (11.5-14.5); White Blood Count 8.6 K/mm3 (4.5-10.0)
[2021-11-20 20:57] LABS: Acetaminophen < 10 ug/mL (10-30); Ethanol < 10 mg/dL (<10); Salicylate < 1.0 mg/dL (2-20)
[2021-11-20 20:59] LABS: Alanine Aminotransferase 120 U/L (4-35); Albumin Level 4.4 g/dL (3.5-5.1); Alkaline Phosphatase 61 U/L (38-126); Anion Gap 3 mmol/L (8-16); Aspartate Amino Transferase 89 U/L (14-36); Bilirubin,Total 0.3 mg/dL (0.2-1.3); Blood Urea Nitrogen 20 mg/dL (7-17); Calcium 9.9 mg/dL (8.4-10.2); Carbon Dioxide 32 mmol/L (22-30); Chloride 107 mmol/L (98-107); Estimated Glomerular Filt Rate > 60; Glucose 42 mg/dL (65-110); Potassium 3.5 mmol/L (3.4-5.0); Sodium 142 mmol/L (137-145)
[2021-11-20 21:01] LABS: Glucose Point of Care 129 mg/dl (65-105)
[2021-11-20 21:08] LABS: Troponin I < 0.012 ng/mL (0.000-0.034)
--- NOTE | 2021-11-20 21:35 | PC.NURSE ---
After catheter insertion and removal, patient attempted to stand up to remove her pants fully. This tech assisted patient in doing so and patient was very unstable on her feet. This tech assisted her back in bed and instructed her to call before getting up. She stated this is nothing new but I don't think the extra xanax is helping. ORVILLE Arteaga notified. [id number]
[2021-11-20 22:01] LABS: Amphetamine Screen Urine Negative (Negative); Barbiturate Screen Urine Negative (Negative); Benzodiazepines Screen Urine Positive (Negative); Cannabinoid Screen Urine Negative (Negative); Cocaine Screen Urine Negative (Negative); Methadone Screen Urine Negative (Negative); Opiate Screen Urine Negative (Negative); Phencyclidine Screen Urine Negative (Negative)
[2021-11-20 22:29] LABS: Glucose Point of Care 63 mg/dl (65-105)
--- NOTE | 2021-11-20 22:29 | PC.NURSE ---
Patients repeat bedside glucose is 63, ERP notified. Orders being placed.
[2021-11-20 22:31] LABS: SARS-CoV-2 RNA PCR Negative
[2021-11-20] MEDS: ACETAMINOPHEN 325 MG TABLET 650 MG PO (22:33)
[2021-11-20] MEDS: DEXTROSE 5%/0.45% SOD CHL 1,000 ML 50 ML IV CONT (22:48)
--- NOTE | 2021-11-20 23:08 | PC.NURSE ---
2305 Allyson with poison control calls to get update on patient.
[2021-11-21 01:15] VITALS: BP 117/93; PULSE 64; RESP 15; TEMP 36.7; O2SAT 95
== END 2021-11-21 01:16 | disposition home or self-care (01) ==
PROVIDERS: Emergency Medicine; Emergency Provider Emergency Medicine; PCP Family Medicine
DX: T42.4X1A Poisoning by benzodiazepines, accidental (unintentional), initial encounter (principal); E16.2 Hypoglycemia, unspecified; Z20.822 Contact with and (suspected) exposure to COVID-19; F32.A Depression, unspecified; F41.9 Anxiety disorder, unspecified; J44.9 Chronic obstructive pulmonary disease, unspecified; M79.7 Fibromyalgia; M19.90 Unspecified osteoarthritis, unspecified site; M81.0 Age-related osteoporosis without current pathological fracture; G47.33 Obstructive sleep apnea (adult) (pediatric); G31.84 Mild cognitive impairment of uncertain or unknown etiology; E66.9 Obesity, unspecified; Z87.01 Personal history of pneumonia (recurrent); Z87.891 Personal history of nicotine dependence; R94.31 Abnormal electrocardiogram [ECG] [EKG]
CPT/HCPCS: 36415; 51701; 71045; 80053; 80307; 82948; 84443; 84484; 85025; 93005; 96360; 96361; 99284; A9270; C9803; U0003; U0005

== ENCOUNTER 2022-02-07 09:06 | Outpatient (CLI) | payer MEDICARE, SELFPAY ==
[2022-02-07 09:52] LABS: Alanine Aminotransferase 37 U/L (6-35); Alkaline Phosphatase 62 U/L (38-126); Anion Gap 2 mmol/L (8-16); Aspartate Amino Transferase 33 U/L (14-36); Bilirubin,Total 0.5 mg/dL (0.2-1.3); Blood Urea Nitrogen 16 mg/dL (7-17); Calcium 9.8 mg/dL (8.4-10.2); Carbon Dioxide 34 mmol/L (22-30); Chloride 104 mmol/L (98-107); Cholesterol 162 mg/dL (0-200); Estimated Glomerular Filt Rate > 60; Glucose 107 mg/dL (65-110); HDL Direct 53 mg/dL; Potassium 4.9 mmol/L (3.4-5.0); Sodium 140 mmol/L (137-145); Triglycerides 96 mg/dL (<150)
[2022-02-07 09:54] LABS: Basophils Absolute Auto 0.1 K/mm3 (0.0-0.1); Basophils Percent Auto 0.8 % (0.2-1.2); Eosinophils Absolute Auto 0.2 K/mm3 (0-0.3); Eosinophils Percent Auto 2.3 % (0-4.4); Hematocrit 41.7 % (37.0-47.0); Hemoglobin 13.7 g/dL (12.0-15.0); Immature Granulocyte Absolute 0.03 K/mm3 (0.00-0.031); Immature Granulocyte Percent A 0.4 % (0-0.5); Lymphocytes Absolute Auto 2.24 K/mm3 (0.9-3.2); Lymphocytes Percent Auto 28.5 % (18.3-44.2); Mean Corpuscular HGB Conc 32.9 g/dl (32-36); Mean Corpuscular Hemoglobin 30.6 pg (26-34); Mean Corpuscular Volume 93.1 fl (80-100); Mean Platelet Volume 8.8 fl (7.4-10.4); Monocytes Absolute Auto 0.7 K/mm3 (0.1-0.6); Monocytes Percent Auto 8.7 % (2.6-8.5); Neutrophils Absolute Auto 4.7 K/mm3 (1.3-6.7); Neutrophils Percent Auto 59.3 % (45.5-73.1); Platelet Count Result 296 k/mm3 (150-375); Red Blood Count 4.48 M/mm3 (4.2-5.4); Red Cell Distribution Width 13.4 % (11.5-14.5); White Blood Count 7.9 K/mm3 (4.5-10.0)
[2022-02-07 09:59] LABS: Hemoglobin A1C 5.3 % (<5.7)
[2022-02-07 10:03] LABS: LDL Cholesterol Direct 78 mg/dL
[2022-02-07 10:29] LABS: Creatinine Urine 54.4 mg/dL
[2022-02-07 10:30] LABS: Vitamin D 25 Hydroxy 38.8 ng/mL
[2022-02-07 10:40] LABS: MALB Creatinine Ratio < 11.0 mg/g (0-30); Microalbumin Urine Random < 6.0 mg/L (0-16.7)
[2022-02-07 10:48] LABS: Ferritin 8.98 ng/mL (11.1-264)
== END 2022-02-07 09:07 | disposition home or self-care (01) ==
PROVIDERS: PCP Family Medicine; Visit Provider Family Medicine
DX: G47.34 Idiopathic sleep related nonobstructive alveolar hypoventilation (principal); R73.03 Prediabetes; Z98.84 Bariatric surgery status; I10 Essential (primary) hypertension
CPT/HCPCS: 36415; 80053; 80061; 82043; 82306; 82607; 82728; 83036; 85025

== ENCOUNTER 2022-02-09 13:09 | Outpatient (CLI) | payer MEDICARE, SELFPAY | END 2022-02-09 13:10 | disposition home or self-care (01) | LOC: ANHGOSHLAB 13:11 | PROVIDERS: PCP Family Medicine; Visit Provider Family Medicine | DX: R79.89 Other specified abnormal findings of blood chemistry (principal); Z98.890 Other specified postprocedural states | CPT/HCPCS: 36415; 84443 ==

== ENCOUNTER 2022-04-26 10:54 | Outpatient (CLI) | payer MEDICARE, SELFPAY | END 2022-04-26 10:55 | disposition home or self-care (01) | LOC: ANHGOSHLAB 10:58 | PROVIDERS: PCP Family Medicine; Visit Provider Family Medicine | DX: M25.50 Pain in unspecified joint (principal) | CPT/HCPCS: 99199; 36415 ==

== ENCOUNTER → 2022-04-26 11:18 | Outpatient (CLI) | payer MEDICARE, SELFPAY ==
--- NOTE | ~2022-04-26 | XR_ITS ---
EXAM: XR hand BI arthritis min 3V DATE: 04/26/2022 11:55 HISTORY: M25.50 - Pain in unspecified joint . COMPARISON: None available. FINDINGS: Decreased mineralization. No fracture or dislocation. No lytic or blastic lesion. Moderate osteoarthritic changes in the bilateral trapezium metacarpal joints, more severe on the left. Modera te osteoarthritic change with erosive features in the bilateral fifth DIP joints. Mild scattered oste oarthritic change in the bilateral fingers and bilateral triscaphe joints. No erosion or periosteal c hange. Soft tissues within normal limits. IMPRESSION: Osteopenia. Osteoarthritis in the hands, detailed above. Changes in the bilateral fifth D IP joints likely reflect a component of erosive osteoarthritis. Reviewed, dictated and finalized at location K. IMPRESSION: Osteopenia. Osteoarthritis in the hands, detailed above. Changes in the bilateral fifth DIP joints likely reflect a component of erosive osteoarth ritis.
--- NOTE | ~2022-04-26 | XR_ITS ---
EXAM: XR shoulder RT min 2V DATE: 04/26/2022 11:54 HISTORY: M25.511 - Pain in right shoulder no injury r/o arthritis . COMPARISON: None available. FINDINGS: Normal mineralization. No fracture or dislocation. No lytic or blastic lesion. Moderate AC joint hypertrophy. Acromial enthesopathy. Mild glenohumeral osteophytosis. No erosion or periosteal change. Soft tissues within normal limits. IMPRESSION: Mild degenerative change at the glenohumeral and acromioclavicular joints. Reviewed, dictated and finalized at location K.
== END ==
PROVIDERS: PCP Family Medicine; Visit Provider Family Medicine
DX: M85.841 Other specified disorders of bone density and structure, right hand (principal); M85.842 Other specified disorders of bone density and structure, left hand; M19.041 Primary osteoarthritis, right hand; M19.042 Primary osteoarthritis, left hand; M19.011 Primary osteoarthritis, right shoulder
CPT/HCPCS: 73030; 73130

== ENCOUNTER 2022-05-20 09:57 | Outpatient (CLI) | payer MEDICARE, SELFPAY ==
--- NOTE | ~2022-05-20 | MR_ITS ---
EXAMINATION: MR hand RT wo/w con, MR hand LT wo/w con DATE: 05/20/2022 12:04 INDICATION: Seronegative arthritis TECHNIQUE: 1. Magnetic resonance imaging (MRI) of the left hand was performed without and with 19 mL Multihance intravenous contrast to include the metacarpals and digits. Sequences included axial, sagittal and co stan T1-weighted FSE and T2-weighted FS FSE, axial T1-weighted FS FSE and postcontrast axial, sagitt al and coronal T1-weighted FS FSE. 2. Magnetic resonance imaging (MRI) of the right hand was performed without and with 19 mL Multihance intravenous contrast to include the metacarpals and digits. Sequences included axial, sagittal and c oronal T1-weighted FSE and T2-weighted FS FSE, axial T1-weighted FS FSE and postcontrast axial, sagit komal and coronal T1-weighted FS FSE. COMPARISON: Bilateral hand radiographs dated 04/26/2022 FINDINGS: Left hand: Bone alignment is normal. No fractures. Severe osteoarthritis at the first carpometacarpal joint with remodeling of the articular cortices, subarticular cystic changes, hypertrophic osteophytes and a fe w small loose osteochondral bodies. There is additional mild subarticular edema associated with sever e osteoarthritis at the fifth distal interphalangeal joint. Thickening and enhancement of the radial collateral ligaments at the second-fourth and to a lesser degree at the first and fifth metacarpophal angeal joints. More subtle mild thickening and minimal enhancement at the second-fifth ulnar collater al ligaments. The flexor and extensor tendons are normal with no tenosynovitis. No joint effusions. N o osseous erosions. Intrinsic musculature of the hand is normal. Right hand: Bone alignment is normal. No fracture. Additional severe but less advanced osteoarthritis at the righ t first carpal metacarpal joint with hypertrophic osteophytes and small severe osteoarthritis at the right fifth distal interphalangeal joint with central erosions with: Configuration at the base of the fifth distal phalanx consistent with erosive osteoarthritis. As at the contralateral left hand there is prominent thickening and enhancement of the radial collateral ligaments at the second, third and fifth metacarpophalangeal joints and to lesser degree at the first and fourth radial collateral ligam ents and the second and third ulnar collateral ligaments. There are associated small enhancing erosio ns underlying the footplates of the radial collateral ligaments at the radial side of the heads of th e second and third metacarpals. No other erosions identified. The flexor and extensor tendons are nor mal with no tenosynovitis. No joint effusions. Intrinsic musculature of the hand is normal. IMPRESSION: 1. Again enhancement of multiple radial collateral and to lesser degree. Ulnar collateral ligaments a t the bilateral hands with associated small erosions at the ligament footplates at the radial side of the head of the right second and third metacarpals which suggests an inflammatory arthritis. The pat tern of involvement of the radial collateral ligament of the metacarpals suggestive of lupus. 2. Severe osteoarthritis at the bilateral first carpometacarpal and fifth distal interphalangeal join ts with erosive osteoarthritis at the right fifth distal interphalangeal joint. Reviewed, dictated and finalized at location A. IMPRESSION: 1. Again enhancement of multiple radial collateral and to lesser degree. Ulnar collateral ligaments at the bilateral hands with associated small erosions at t he ligament footplates at the radial side of the head of the right second and t hird metacarpals which suggests an inflammatory arthritis. The pattern of invol vement of the radial collateral ligament of the metacarpals suggestive of lupus . 2. Severe oste
== END 2022-05-20 09:58 | disposition home or self-care (01) ==
PROVIDERS: PCP Family Medicine; Visit Provider Internal Medicine
DX: R76.8 Other specified abnormal immunological findings in serum (principal); M19.042 Primary osteoarthritis, left hand; M19.041 Primary osteoarthritis, right hand
CPT/HCPCS: 73220; A9577

== ENCOUNTER 2022-07-01 09:30 | Outpatient (RCR) | payer MEDICARE, SELFPAY ==
--- NOTE | 2022-06-22 15:35 | PTOPEVAL1 ---
Assessment and note entered by Kuldeep Balderas, PT Evaluation Information Diagnosis neck pain with R shoulder radiating pain Onset chronic Subjective Information Patient reports dealing with OA since her mid 20's along newly diagnosed with Lupus. Patient also has contributing co-morbidities of fibromyalgia and TMJ disorder. Patient has trouble with any prolonged activities like cooking, washing dishes, vacuuming, sleeping. Has reported dropping things with her R hand. Reported Pain Level Pain Score 5: Self Report Additional Pain Score Comments Reports she takes Tylenol, medical marijuana, and lidocaine patches to help with the pain Assessment PT Clinical Summary Sheila is a 71 year old female coming into the clinic for neck pain which she states will radiate into her R shoulder. She is having trouble being in any prolonged position for any extended period of time reporting she can only cook or wash dishes for 10 minutes before needing to roll her shoulders or move around. She has weak scapular strength to go with forward head, rounded shoulders, decreased cervical range of motion, and tight pecs and upper traps. Patient should benefit from skilled physical therapy to work on improving cervical range of motion, posture, scapular strength, and stretching out the upper traps and pecs to improve muscular imbalance. Manual therapy and modalities to help with pain control. Plan of Care Interventions Electrical Stimulation,Gait Training,Hot Pack/Cold Pack,Manual Therapy,Mechanical Traction,Neuro Re- education,Patient/Caregiver Education,Therapeutic Activities,Therapeutic Exercise,Ultrasound Other Interventions taping PT Services Indicated Yes Treatment Frequency and 1-2x/wk for 4 weeks Duration These treatments will address the objective and functional deficits as defined above. The patient will be advanced safely and appropriately in order for the patient to progress towards his/her prior level of function. Additional exercises will be introduced and as well as a comprehensive home exercise program upon discharge, if needed, ?to ensure carryover of functional gains achieved in the clinic. This treatment plan has been reviewed and agreement upon by the patient.
--- NOTE | 2022-07-12 16:02 | PCPTNOTE ---
Patient did not show up for scheduled appointment this date, called and had to leave a message.
--- NOTE | 2022-07-13 10:07 | PTOPDC ---
Assessment and note entered by Kuldeep Balderas, PT Evaluation Information Assessment Status Discharge - Pt Not Present Diagnosis Neck pain with R shoulder radiating pain Onset chronic Subjective Information Patient reports dealing with OA since her mid 's along newly diagnosed with Lupus. Patient also has contributing co-morbidities of fibromyalgia and TMJ disorder. Patient has trouble with any prolonged activities like cooking, washing dishes, vacuuming, sleeping. Has reported dropping things with her R hand. Assessment PT Clinical Summary Sheila was evaluated on Jun 22, 2022 and attended 1 additional session then did not show up for her next scheduled appointment and called into our front end engineer this morning saying she was cancelling the rest of her scheduled appointments, did not give a reason for cancelling appointments according to front front end engineer staff. Discharged from physical therapy at this time. Plan of Care Treatment Frequency and discharge from physical therapy. Duration
== END 2022-07-13 12:31 | disposition home or self-care (01) ==
LOC: ANHPT 09:30
PROVIDERS: PCP Family Medicine; Visit Provider Family Medicine
DX: M47.22 Other spondylosis with radiculopathy, cervical region (principal)
CPT/HCPCS: 97110; 97140; 97162; 99199

== ENCOUNTER 2022-07-19 16:03 | Emergency (ER) | payer MEDICARE, SELFPAY ==
[2022-07-19] VITALS (23 sets, daily range): BP systolic 110–127; BP diastolic 56–82; PULSE 59–130; RESP 10–23; TEMP 36.5; O2SAT 94–100
--- NOTE | ~2022-07-19 | CT_ITS ---
EXAMINATION: CTA chest PE protocol DATE: 07/19/2022 21:19 INDICATION: r/o PE TECHNIQUE: Computed tomography angiography (CTA) of the chest was performed with 100 mL Omnipaque-350 intravenous contrast timed to evaluate the pulmonary arteries. Coronal maximum intensity projection 3D-reconstructions were created by the technologist. The dose-length product (DLP) was 765.58 mGy-cm. Automated exposure control and iterative reconstruction technique were employed. COMPARISON: X-ray chest, same date. FINDINGS: Lung parenchyma and airways: Bibasilar dependent scar/atelectasis. Pleura: Unremarkable. Thoracic inlet, axillae and chest wall: Unremarkable. Thoracic aorta: Mild ascending aortic ectasia and arch calcification. Mediastinum: Moderate hiatal hernia. Heart and pericardium: Normal. Coronary artery calcifications: Absent. Upper abdomen: No significant finding. Bones: No acute osseous finding. Pulmonary arteries: Study quality: Late phase of contrast, but overall diagnostic. No pulmonary embol i detected. IMPRESSION: No CT evidence of acute pulmonary embolus. Reviewed, dictated and finalized at location K. OM PAINTER
--- NOTE | ~2022-07-19 | XR_ITS ---
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 Hx asthma, COPD Comparison: 11/20/2021. RESULT: Lines, tubes, and devices: None. Lungs and pleura: Bibasilar linear scar/atelectasis. Mild senescent changes. Cardiomediastinal silhouette: Stable. Other: No acute osseous or upper abdominal finding. IMPRESSION: No acute cardiopulmonary process. Reviewed, dictated and finalized at location K. EL CONTRACTOR
--- NOTE | 2022-07-19 16:36 | ECG_ITS ---
Measurements Intervals [place] Rate: 65 P: 35 GA: 183 QRS: 10 QRSD: 84 T: 41 QT: 407 QTc: 424 Interpretive Statements SINUS RHYTHM LOW QRS VOLTAGE IN PRECORDIAL LEADS PATTERN CONSISTENT WITH PULMONARY DISEASE BORDERLINE ECG COMPARED TO ECG 11/20/2021 20:22:33 NO SIGNIFICANT CHANGES Electronically Signed On 07-19-2022 18:07:49 SURFACER by Micah Salmeron M.D.
[2022-07-19 16:48] LABS: Basophils Absolute Auto 0.1 K/mm3 (0.0-0.1); Basophils Percent Auto 0.9 % (0.2-1.2); Eosinophils Absolute Auto 0.3 K/mm3 (0-0.3); Eosinophils Percent Auto 2.9 % (0-4.4); Hematocrit 40.4 % (37.0-47.0); Hemoglobin 12.7 g/dL (12.0-15.0); Immature Granulocyte Absolute 0.04 K/mm3 (0.00-0.031); Immature Granulocyte Percent A 0.4 % (0-0.5); Lymphocytes Absolute Auto 3.05 K/mm3 (0.9-3.2); Lymphocytes Percent Auto 31.7 % (18.3-44.2); Mean Corpuscular HGB Conc 31.4 g/dl (32-36); Mean Corpuscular Hemoglobin 28.9 pg (26-34); Mean Corpuscular Volume 91.8 fl (80-100); Mean Platelet Volume 8.5 fl (7.4-10.4); Monocytes Percent Auto 10.5 % (2.6-8.5); Neutrophils Absolute Auto 5.2 K/mm3 (1.3-6.7); Neutrophils Percent Auto 53.6 % (45.5-73.1); Platelet Count Result 305 k/mm3 (150-375); Red Cell Distribution Width 14.7 % (11.5-14.5); White Blood Count 9.6 K/mm3 (4.5-10.0)
[2022-07-19 17:00] LABS: Alanine Aminotransferase 32 U/L (6-35); Albumin Level 4.5 g/dL (3.5-5.1); Alkaline Phosphatase 83 U/L (38-126); Anion Gap 4 mmol/L (8-16); Aspartate Amino Transferase 30 U/L (14-36); Bilirubin,Total 0.3 mg/dL (0.2-1.3); Blood Urea Nitrogen 17 mg/dL (7-17); Calcium 9.5 mg/dL (8.4-10.2); Carbon Dioxide 30 mmol/L (22-30); Chloride 106 mmol/L (98-107); Estimated CRCL calculation 62 ml/min; Estimated Glomerular Filt Rate > 60; Glucose 80 mg/dL (65-110); Lipase 49 U/L (23-300); Potassium 4.9 mmol/L (3.4-5.0); Sodium 140 mmol/L (137-145)
[2022-07-19 17:03] LABS: Prothrombin Time 12.8 Seconds (11.1-14.7)
[2022-07-19 17:04] LABS: Partial Thromboplastin Time 28.5 SECONDS (22.3-36.8)
[2022-07-19 17:24] LABS: Influenza A QL RT-PCR Negative (Negative); Influenza B QL RT-PCR Negative (Negative); SARS-CoV-2 RNA PCR Negative
[2022-07-19 17:26] LABS: Troponin I < 0.012 ng/mL (0.000-0.034)
[2022-07-19] MEDS: predniSONE 20 MG TABLET 60 MG PO (18:45)
[2022-07-19] MEDS: IPRATROPIUM BR 0.02% INH SOLN 0.5 MG/2.5 ML VIAL INHALATION (18:45)
--- NOTE | 2022-07-19 18:56 | ED.GENADULT ---
HPI - General Adult General Chief complaint: Upper Respiratory Infection Stated complaint: upper respiratory Time Seen by Provider: 07/19/22 18:23 History of Present Illness HPI narrative: 72-year-old female history of asthma, lupus presented with cough shortness of breath and chest tightness. Per patient for the last year to 3 days she has been having cough, shortness of breath, similar to her asthma exacerbation. 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 She denied fevers, chills, nausea, vomiting, chest pain, abdominal pain, dysuria, hematuria, diarrhea, sick contacts. Past Medical History: Asthma, lupus Medications: Alprazolam, buspirone, duloxetine, Ventolin hydroxychloroquine Allergies: No known drug allergies Social: Denied smoking, alcohol, recreational drugs Related Data Home Medications Medication Instructions Recorded Confirmed cetirizine 10 mg capsule (Zyrtec) 10 mg PO BID 06/10/19 05/25/22 cyanocobalamin (vitamin B-12) 50 50 mcg PO DAILY 06/10/19 05/25/22 mcg tablet levalbuterol tartrate 45 2 inhalation inhalation Q4-6H PRN 06/10/19 05/25/22 mcg/actuation aerosol inhaler Dyspnea (Xopenex HFA) montelukast 10 mg tablet 10 mg PO HS 06/10/19 05/25/22 (Singulair) fluticasone propionate 50 1 spray intranasal BID 04/14/20 05/25/22 mcg/actuation nasal spray,suspension (Flonase Allergy Relief) olopatadine 0.6 % nasal spray 2 spray intranasal BID 04/14/20 05/25/22 alprazolam 0.5 mg tablet 0.5 mg PO HS 05/19/20 05/25/22 omalizumab 150 mg subcutaneous 300 mg subcut .[id number] 05/19/20 05/25/22 solution (Xolair) buspirone 10 mg tablet 10 mg PO HS 01/20/21 05/25/22 duloxetine 30 mg capsule,delayed 30 mg PO HS 03/04/21 05/25/22 release duloxetine 60 mg capsule,delayed 60 mg PO HS 03/04/21 05/25/22 release fluticasone furoate 200 1 inh inhalation Q24H 03/10/22 05/25/22 mcg-vilanterol 25 mcg/dose inhalation powder (Breo Ellipta) Allergies Allergy/AdvReac Type Severity Reaction Status Date / Time adhesive AdvReac Unknown Itching Verified 07/06/22 13:04 Review of Systems Review of Systems: See HPI [facility] Past Medical History Medical History GUS positive Cataract Concussion COPD (chronic obstructive pulmonary disease) CPAP (continuous positive airway pressure) dependence Globus sensation Incontinence Obstructive sleep apnea on CPAP Syncope TMJ (temporomandibular joint disorder) Vertigo Surgical History Surgical History History of bariatric surgery History of cholecystectomy History of partial hysterectomy Family History Family History Father Family history of primary malignant neoplasm of liver Family history of alcoholism, Onset Age: 72 Family history of liver disease Carcinoma of colon Mother Asthma, Onset Age: 42 Social History Social History Smoking packs per day: 1 Smoking cigarettes per day: 20.0 Years smoked: 20 Smoking pack-years: 20.00 Smoking status: Former smoker Tobacco type: cigarettes Smoking end date: 07/24/88 Alcohol intake: never Substance use: never Substance use type: marijuana Additional living arrangements comments: [facility] Spiritual care concerns: No Course Vital Signs Vital signs: Vital Signs Temperature 97.7 F 07/19/22 16:24 Pulse Rate 68 07/19/22 16:24 Respiratory Rate 16 07/19/22 16:24 Blood Pressure 127/82 07/19/22 16:24 Pulse Oximetry 95 07/19/22 16:24 Temperature 97.7 F 07/19/22 16:24 Pulse Rate 71 07/19/22 20:48 Respiratory Rate 20 07/19/22 20:48 Blood Pressure 121/56 L 07/19/22 18:03 Pulse Oximetry 96 07/19/22 18:03 Oxygen Delivery Room Air 07/19/22 18:03 Med
[2022-07-19] MEDS: ALBUTEROL SULFATE NEB 2.5 MG/3 ML INH 10 MG INHALATION (19:09)
[2022-07-19 19:20] LABS: D Dimer 0.54 ug/mL (<0.48)
[2022-07-19 19:49] LABS: Troponin I < 0.012 ng/mL (0.000-0.034)
== END 2022-07-19 20:20 | disposition home or self-care (01) ==
PROVIDERS: Family Medicine; Emergency Provider Emergency Medicine; PCP Family Medicine
DX: J45.901 Unspecified asthma with (acute) exacerbation (principal); Z20.822 Contact with and (suspected) exposure to COVID-19; Z87.891 Personal history of nicotine dependence; G47.30 Sleep apnea, unspecified
CPT/HCPCS: 36415; 71046; 71275; 80053; 83690; 84484; 85025; 85380; 85610; 85730; 87636; 93005; 94640; 99284; J7512; Q9967

== ENCOUNTER → 2022-11-17 12:50 | Outpatient (CLI) | payer MEDICARE, SELFPAY ==
--- NOTE | ~2022-11-17 | XR_ITS ---
EXAMINATION: XR wrist RT w scaphoid INDICATION: Right wrist pain TECHNIQUE: Four views of the right wrist are obtained on five radiographs. COMPARISON: 04/26/2022 FINDINGS: There is severe osteoarthritis at the first carpometacarpal joint. Bone alignment is normal . There is no fracture. The soft tissues are unremarkable. IMPRESSION: 1. Osteoarthritis without acute osseous abnormality. Reviewed, dictated and finalized at location L.
== END ==
PROVIDERS: PCP Family Medicine; Visit Provider Family Medicine
DX: M65.4 Radial styloid tenosynovitis [de Quervain] (principal); M19.031 Primary osteoarthritis, right wrist
CPT/HCPCS: 73110

== ENCOUNTER → 2022-11-17 12:53 | Outpatient (CLI) | payer MEDICARE, SELFPAY ==
--- NOTE | ~2022-11-17 | XR_ITS ---
AP and lateral views of the bilateral hips Clinical history: Pain Findings: No acute fracture or dislocation is seen. Osseous alignment is anatomic. Minimal degenerati ve change of both hips noted. Soft tissues are unremarkable. Impression: Minimal degenerative change of both hips. Reviewed, dictated and finalized at location . Impression: Minimal degenerative change of both hips.
--- NOTE | ~2022-11-17 | XR_ITS ---
EXAMINATION:XR_CERV2-3V_CR DATE: 11/17/2022 13:55 INDICATION: Cervical radiculopathy TECHNIQUE: AP, lateral, lateral swimmers and odontoid views of the cervical spine are provided. COMPARISON: 03/07/2016 FINDINGS: There is straightening of the cervical spine which can be positional or due to muscular spa sm. Alignment is normal. The odontoid process is intact. No fracture is identified. The vertebral bod y heights are maintained. There is moderate loss of intervertebral disc space height at C5-C6, C6-7, and C7-T1 Small degenerative osteophytes project from the anterior endplates of multiple vertebral stephanie dies. There is multilevel moderate facet and uncovertebral joint osteoarthritis. Prevertebral soft ti ssues are normal. IMPRESSION: 1. Moderate cervical spondylosis without acute findings or significant interval change. Reviewed, dictated and finalized at location L.
--- NOTE | ~2022-11-17 | XR_ITS ---
EXAMINATION: XR lumbar spine 2-3V DATE: 11/17/2022 13:55 INDICATION: Lumbar radiculopathy TECHNIQUE: Anteroposterior and lateral views of the lumbar spine, and cone-down lateral view of the l umbosacral junction were obtained. COMPARISON: 04/07/2016 FINDINGS: There is unchanged moderate loss of intervertebral disc space height at L5-S1. There is mil d loss of intervertebral disc space height throughout the remainder of the lumbar spine. There are 4 mm of anterolisthesis of L4 on L5. Small degenerative osteophytes project from the anterior endplates of multiple vertebral bodies. There is moderate facet joint osteoarthritis of the lower lumbar spine . A large volume of colonic stool is present. Phleboliths are noted in the pelvis. IMPRESSION: 1. Moderate lumbar spondylosis with slight worsening at L4-5. Reviewed, dictated and finalized at location L.
== END ==
PROVIDERS: PCP Family Medicine; Visit Provider Anesthesiology Pain Medicine
DX: M54.12 Radiculopathy, cervical region (principal); M16.9 Osteoarthritis of hip, unspecified; M47.896 Other spondylosis, lumbar region
CPT/HCPCS: 72040; 72100; 73521

== ENCOUNTER → 2023-04-20 07:38 | Outpatient (CLI) | payer MEDICARE, SELFPAY ==
--- NOTE | ~2023-04-20 | MR_ITS ---
MRI of the lumbar spine Clinical History: Radiculopathy Technique: Axial T2-weighted images, and sagittal T1-weighted, T2-weighted, and T2 fat-sat images wer e acquired. COMPARISON: 05/02/2016 Findings: There is no fracture or subluxation of the lumbar spine. Vertebral bodies maintain normal h eight and alignment. No suspicious bone marrow signal abnormality seen. At L1-L2, there is no disc bulge or herniation. There is mild to moderate facet arthropathy. No centr al canal stenosis or definite neural foraminal narrowing. At L2-L3, there is no disc bulge or herniation. There is moderate facet arthropathy. No central canal stenosis or neural foraminal narrowing. At L3-L4, there is minimal disc bulge and moderate facet arthropathy. No central canal stenosis or ne ural foraminal narrowing. At L4-L5, there is minimal disc bulge with severe facet arthropathy. No central canal stenosis or charisse ral foraminal narrowing. At L5-S1, there is mild disc bulge and mild facet arthropathy. No central canal stenosis. There is mo derate to severe right neural foraminal narrowing. There is minimal left neural foraminal narrowing. Paravertebral soft tissues are unremarkable. Impression: Bilateral neural foraminal narrowing, right worse than left, at L5-S1, as detailed above. Facet joint degenerative changes throughout the lumbar spine. Reviewed, dictated and finalized at [facility]. Impression: Bilateral neural foraminal narrowing, right worse than left, at L5-S1, as detai led above. Facet joint degenerative changes throughout the lumbar spine.
--- NOTE | ~2023-04-20 | MR_ITS ---
MRI of the cervical spine Clinical History: Radiculopathy Technique: Axial T2-weighted and gradient images, and sagittal T1-weighted, T2-weighted, and STIR anoop ges were acquired. Findings: There is straightening of the normal cervical lordosis. No fracture or subluxation evident. No suspicious bone marrow signal abnormality seen. At C2-C3, there is no significant disc bulge or herniation. There is minimal facet arthropathy. There is probable minimal bilateral neural foraminal narrowing. At C3-C4, there is minimal disc osteophyte complex. There is bilateral facet arthropathy, left worse than right. There is left neural foraminal narrowing. Possible minimal right neural foraminal narrowi ng. At C4-C5, there is advanced degenerative disc narrowing. There is disc osteophyte complex with mild c anal stenosis and minimal flattening the ventral cord. There is severe bilateral neural foraminal willard rowing. At C5-C6, there is advanced degenerative disc narrowing. There is disc osteophyte complex with mild c anal stenosis and mild flattening the ventral cord. There is advanced bilateral neural foraminal narr owing, probably right worse than left. At C6-C7, there is degenerative disc narrowing. Disc osteophyte complex results in mild to moderate s josh canal stenosis and associated ventral cord compression. There is bilateral neural foraminal willard rowing, left worse than right. No abnormal signal seen in the spinal cord itself. Paravertebral soft tissues are unremarkable. Impression: Severe degenerative spondylosis, as detailed above, probably worst at C6-C7. There is mild to moderat e canal stenosis and ventral cord compression at this level, with mild canal stenosis and mild flatte alex of the ventral cord at C4-C5 and C5-C6. Multilevel neural foraminal narrowing, as detailed above. Reviewed, dictated and finalized at [facility]. Impression: Severe degenerative spondylosis, as detailed above, probably worst at C6-C7. Th ere is mild to moderate canal stenosis and ventral cord compression at this lev el, with mild canal stenosis and mild flattening of the ventral cord at C4-C5 a nd C5-C6. Multilevel neural foraminal narrowing, as detailed above.
== END ==
PROVIDERS: PCP Family Medicine; Referring Provider Internal Medicine; Visit Provider Nurse Practitioner Family
DX: M47.22 Other spondylosis with radiculopathy, cervical region (principal); M48.02 Spinal stenosis, cervical region; M47.26 Other spondylosis with radiculopathy, lumbar region
CPT/HCPCS: 72141; 72148

== ENCOUNTER 2023-07-31 02:35 | Day surgery (SDC) | payer MEDICARE, SELFPAY ==
[2023-06-14 10:35] VITALS: BMI 37.8
[2023-07-03 13:30] VITALS: BMI 37.8
--- NOTE | 2023-07-28 08:53 | SUR.PREOP ---
Patient called regarding upcoming procedure. Voicemail left regarding appointment times.
--- NOTE | 2023-07-28 16:16 | PM.HPGS ---
History of Present Illness History of Present Illness Consent: Risks, benefits, and alternatives have been discussed and questions answered. Patient agrees to proceed with procedure. Chief complaint: GERD,Nausea,Abdominal Pain,Other Constipation Narrative: Sheila Daily is a 73 year old female with hx of Lupus, asthma, sleep apnea (on CPAP) , fibromyalgia, GERD (on Nexium 40 mg BID), IBS-C(on Amitiza 24 mcg BID), gastric bypass surgery over 10 years ago, cholecystectomy, and partial hysterectomy is referred for evaluation of abdominal pain, constipation and GERD. Pt reports hx of GERD in which she treats with Nexium 40 mg BID for the past several years. Pt states years ago that? she developed severe upper abdominal burning sensation in her stomach. She eventually followed up in the ER and was told she had a gastric ulcer (no EGD done). She was prescribed Nexium 40 mg BID and burning improved. She has tried to decrease the dose to once a day but has return of symptoms.? She has chronic constipation for which she has been taking Amitiza 24 mcg b.i.d.. She has low abdominal cramping and at times her stomach will feel hard. She is taking dicyclomine prescribed by her primary care provider which does give her relief. There is a family history of esophageal cancer in her brother and colon cancer in her father. Review of Systems Review of Systems: All systems reviewed & are unremarkable except as noted in HPI and below PMFSH Past Medical History Medical History GUS positive Cataract Concussion COPD (chronic obstructive pulmonary disease) CPAP (continuous positive airway pressure) dependence Generalized osteoarthritis of multiple sites Globus sensation Incontinence Obstructive sleep apnea on CPAP Syncope TMJ (temporomandibular joint disorder) Undifferentiated connective tissue disease Vertigo Surgical History Surgical History History of bariatric surgery History of cholecystectomy History of partial hysterectomy Family History Family History Father Family history of primary malignant neoplasm of liver Family history of alcoholism, Onset Age: 72 Family history of liver disease Carcinoma of colon Mother Asthma, Onset Age: 42 Social History Social History Smoking packs per day: 1 Smoking cigarettes per day: 20.0 Years smoked: 20 Smoking pack-years: 20.00 Smoking status: Never smoker Tobacco type: cigarettes Smoking end date: 07/24/88 Alcohol intake: never Substance use: current Substance use type: marijuana Other substance usage details: MEDICAL MJ PILL [employer]M Lack of Transportation: No Lack of Food: Never True Current Housing: I Have Housing Concerned About Future Housing: No Difficulty Paying Gas/Electric Bills: No Difficulty Paying for Meds: No Currently Unemployed: No Education: Associate Degree Difficulty w/ Childcare or Family Care: No Living arrangements: with family Additional living arrangements comments: HUSB Spiritual care concerns: No Meds Home Medications and Allergies Home Medications Medication Instructions Recorded Confirmed Type cetirizine 10 mg capsule (Zyrtec) 10 mg PO BID 06/10/19 07/31/23 History levalbuterol tartrate 45 2 inhalation inhalation Q4-6H PRN 06/10/19 07/31/23 History mcg/actuation aerosol inhaler Dyspnea (Xopenex HFA) fluticasone propionate 50 1 spray intranasal BID 04/14/20 07/31/23 History mcg/actuation nasal spray,suspension (Flonase Allergy Relief) olopatadine 0.6 % nasal spray 2 spray intranasal BID 04/14/20 07/31/23 History omalizumab 150 mg subcutaneous 300 mg subcut .[id number] 05/19/20 07/31/23 History solution (Xolair) lancets (Accu-Chek Softclix #100 ea 05/25/20 06/14/23 Rx Navjot
[2023-07-31 06:24] VITALS: BP 128/74; PULSE 76; RESP 18; TEMP 36.3; O2SAT 95
[2023-07-31] MEDS: LACTATED RINGERS 1,000 ML 150 ML IV CONT (06:27)
--- NOTE | 2023-07-31 07:25 | WPDANESEPPF ---
Anes - Initial Pre Proc Eval Procedure: Operation Date: 07/31/23 07:30 Proposed Procedures p Esophagogastroduodenoscopy & Colonoscopy - Alek Guzman MD Date/Time: 07/31/23 07:25 Surgeon: Alek Guzman MD Pre Op Diagnosis: GERD,Nausea,Abdominal Pain,Other Constipation Patient Data Age: 73 Gender: F Height: 1.63 m Weight: 99.3 kg Last Vital Signs Temp 97.4 F L 07/31/23 06:24 Pulse 76 07/31/23 06:24 Resp 18 07/31/23 06:24 BP 128/74 07/31/23 06:24 Pulse Ox 95 07/31/23 06:24 O2 Del Method Room Air 07/31/23 06:24 Allergies Allergy/AdvReac Type Severity Reaction Status Date / Time NSAIDS (Non-Steroidal AdvReac Severe Abdominal Verified 07/31/23 06:22 Anti-Inflamma Pain adhesive AdvReac Unknown Itching Verified 07/31/23 06:22 Home Medications Medication Instructions Recorded Confirmed Type cetirizine 10 mg capsule (Zyrtec) 10 mg PO BID 06/10/19 07/31/23 History levalbuterol tartrate 45 2 inhalation inhalation Q4-6H PRN 06/10/19 07/31/23 History mcg/actuation aerosol inhaler Dyspnea (Xopenex HFA) fluticasone propionate 50 1 spray intranasal BID 04/14/20 07/31/23 History mcg/actuation nasal spray,suspension (Flonase Allergy Relief) olopatadine 0.6 % nasal spray 2 spray intranasal BID 04/14/20 07/31/23 History omalizumab 150 mg subcutaneous 300 mg subcut .[id number] 05/19/20 07/31/23 History solution (Xolair) lancets (Accu-Chek Softclix #100 ea 05/25/20 06/14/23 Rx Lancets) fluticasone furoate 200 1 inh inhalation Q24H 03/10/22 07/31/23 History mcg-vilanterol 25 mcg/dose inhalation powder (Breo Ellipta) buspirone 10 mg tablet 10 mg PO BID 07/21/22 07/31/23 History levalbuterol HCl 1.25 mg/3 mL 1.25 mg (3 mL) inhalation Q4H #75 07/21/22 07/31/23 Rx solution for nebulization mL thumb spica splint #1 ea 09/06/22 06/14/23 Rx blood sugar diagnostic (Accu-Chek #100 ea 09/13/22 06/14/23 Rx Anna Plus test strips) hydroxyzine HCl 10 mg tablet 10 mg PO DAILY 12/06/22 07/31/23 History acetaminophen 300 mg-codeine 30 mg 1 tablet PO Q8H PRN pain #14 tabs 02/09/23 07/31/23 Rx tablet esomeprazole magnesium 40 mg See Rx Instructions .Route 02/10/23 07/31/23 Rx capsule,delayed release .COMPLEX #180 caps duloxetine 60 mg capsule,delayed See Rx Instructions .Route 04/10/23 07/31/23 Rx release .COMPLEX #180 caps folic acid 1 mg tablet 1 mg PO DAILY #90 tabs 05/19/23 07/31/23 Rx hydroxychloroquine 200 mg tablet 400 mg PO DAILY #180 tabs 05/19/23 07/31/23 Rx (Plaquenil) methotrexate sodium 2.5 mg tablet 12.5 mg PO WEEKLY #60 tabs 05/19/23 07/31/23 Rx dicyclomine 10 mg capsule 10 mg PO TID PRN abdominal pain 05/26/23 07/31/23 Rx #30 caps oxybutynin chloride 5 mg tablet See Rx Instructions .Route 05/26/23 07/31/23 Rx .COMPLEX #180 tabs cholecalciferol (vitamin D3) 1,250 50,000 unit PO WEEKLY 06/14/23 07/31/23 History mcg (50,000 unit) capsule methylphenidate HCl 20 mg 20 mg PO DAILY 06/14/23 07/31/23 History tablet,extended release lubiprostone 24 mcg capsule 24 mcg PO BID #60 caps 07/04/23 07/31/23 Rx Patient hx anesthesia problems: none Family hx anesthesia problems: none Results Review: All pre-operative results and documents have been reviewed as part of the pre-operative evaluation. [facility] Past Medical History Medical History GUS positive Cataract Concussion COPD (chronic obstructive pulmonary disease) CPAP (continuous positive airway pressure) dependence Generalized osteoarthritis of multiple sites Globus sensation Incontinence Obstructive sleep apnea on CPAP Syncope TMJ (temporomandibular joint disorder) Undifferentiated connective tissue disease Vertigo Surgical History Surgical History History of bariatric surgery History of cholecystectomy History of partial hysterectomy Family History Family History (R
--- NOTE | 2023-07-31 07:45 | SUR.OPER ---
EGD ended 736 colonoscopy started 742
[2023-07-31 08:00] VITALS: BP 118/64; PULSE 65; RESP 16; O2SAT 95
[2023-07-31 08:10] VITALS: BP 114/55; PULSE 65; RESP 21; O2SAT 96
[2023-07-31 08:20] VITALS: BP 102/54; PULSE 60; RESP 19; O2SAT 97
== END 2023-07-31 08:22 | disposition home or self-care (01) ==
PROVIDERS: PCP Family Medicine; Visit Provider Internal Medicine Gastroenterology
PROC: 0DJ08ZZ Inspection of Upper Intestinal Tract, Via Natural or Artificial Opening Endoscopic (ICD-10-PCS; CPT 43235; principal; 2023-07-31 07:30)
DX: K21.9 Gastro-esophageal reflux disease without esophagitis (principal); D12.5 Benign neoplasm of sigmoid colon; D12.3 Benign neoplasm of transverse colon; G47.33 Obstructive sleep apnea (adult) (pediatric); J44.9 Chronic obstructive pulmonary disease, unspecified; K59.09 Other constipation; R32 Unspecified urinary incontinence; M26.609 Unspecified temporomandibular joint disorder, unspecified side; F17.210 Nicotine dependence, cigarettes, uncomplicated; F12.90 Cannabis use, unspecified, uncomplicated; E66.9 Obesity, unspecified; Z68.37 Body mass index [BMI] 37.0-37.9, adult; Z79.51 Long term (current) use of inhaled steroids; Z99.89 Dependence on other enabling machines and devices; Z90.49 Acquired absence of other specified parts of digestive tract; Z98.84 Bariatric surgery status; Z98.890 Other specified postprocedural states; Z80.0 Family history of malignant neoplasm of digestive organs
CPT/HCPCS: 43235; 45385; 45380; 88305; J2704; J7120

== ENCOUNTER 2023-08-15 14:06 | Outpatient (CLI) | payer MEDICARE, SELFPAY ==
--- NOTE | ~2023-08-15 | CT_ITS ---
CT of the Abdomen and Pelvis: Indication: Abdominal pain Technique: 2.5 mm axial scans were obtained through the abdomen and pelvis following intravenous adm inistration of 100 cc of Omnipaque 350. Dose reduction technique was used on this scan by utilizing a utomated exposure control and iterative reconstruction technique. The dose-length product (DLP) was 1 320.20 mGy-cm. COMPARISON: 12/22/2020 Findings: Scans through the lung bases are unremarkable. There are small hiatal hernia. Mild intrahepatic and extrahepatic biliary dilatation is probably related to prior cholecystectomy. T he spleen, pancreas, adrenals and kidneys are within normal limits. There are atherosclerotic calcifi cations of the aorta. No lymphadenopathy. No bowel obstruction or bowel wall thickening. There is no evidence to suggest acute appendicitis. Ev idence of prior bariatric surgery. Images through the pelvis were performed. Urinary bladder unremarkable. No adnexal mass seen. No asci sean. Small bilateral fat-containing hernias are noted. Impression: No acute abnormality seen. Small bilateral fat-containing inguinal hernias. Small hiatal hernia. Reviewed, dictated and finalized at location . 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 Small bilateral fat-containing inguinal hernias. Small hiatal hernia.
[2023-08-15 14:40] LABS: Estimated Glomerular Filt Rate > 60
== END 2023-08-15 14:07 | disposition home or self-care (01) ==
PROVIDERS: PCP Family Medicine; Visit Provider Nurse Practitioner Family
DX: K44.9 Diaphragmatic hernia without obstruction or gangrene (principal); K40.20 Bilateral inguinal hernia, without obstruction or gangrene, not specified as recurrent
CPT/HCPCS: 74177; Q9967

== ENCOUNTER 2024-05-17 13:58 | Emergency (ER) | payer MEDICARE, SELFPAY ==
[2024-05-17 14:11] VITALS: BP 139/70; PULSE 76; RESP 17; TEMP 36.6; O2SAT 95
[2024-05-17 16:13] VITALS: BP 127/86; PULSE 67; RESP 18; O2SAT 97
[2024-05-17 16:28] LABS: Basophils Absolute Auto 0.1 K/mm3 (0.0-0.1); Basophils Percent Auto 0.8 % (0.2-1.2); Eosinophils Absolute Auto 0.4 K/mm3 (0-0.3); Eosinophils Percent Auto 3.6 % (0-4.4); Hematocrit 37.3 % (37.0-47.0); Hemoglobin 11.8 g/dL (12.0-15.0); Immature Granulocyte Absolute 0.03 K/mm3 (0.00-0.031); Immature Granulocyte Percent A 0.3 % (0-0.5); Lymphocytes Absolute Auto 2.45 K/mm3 (0.9-3.2); Lymphocytes Percent Auto 24.7 % (18.3-44.2); Mean Corpuscular HGB Conc 31.6 g/dl (32-36); Mean Corpuscular Hemoglobin 27.4 pg (26-34); Mean Corpuscular Volume 86.5 fl (80-100); Mean Platelet Volume 9.2 fl (7.4-10.4); Monocytes Absolute Auto 0.9 K/mm3 (0.1-0.6); Monocytes Percent Auto 9.2 % (2.6-8.5); Neutrophils Absolute Auto 6.1 K/mm3 (1.3-6.7); Neutrophils Percent Auto 61.4 % (45.5-73.1); Platelet Count Result 311 k/mm3 (150-375); Red Blood Count 4.31 M/mm3 (4.2-5.4); Red Cell Distribution Width 17.2 % (11.5-14.5); White Blood Count 9.9 K/mm3 (4.5-10.0)
[2024-05-17 16:38] LABS: Alanine Aminotransferase 20 U/L (6-35); Albumin Level 4.2 g/dL (3.5-5.1); Alkaline Phosphatase 82 U/L (38-126); Anion Gap 8 mmol/L (4-12); Aspartate Amino Transferase 24 U/L (14-36); Bilirubin,Total 0.5 mg/dL (0.2-1.3); Blood Urea Nitrogen 20 mg/dL (7-17); Calcium 10.3 mg/dL (8.4-10.2); Carbon Dioxide 31 mmol/L (22-30); Chloride 100 mmol/L (98-107); Estimated CRCL calculation 61 ml/min; Estimated Glomerular Filt Rate > 60; Glucose 96 mg/dL (65-110); Lipase 44 U/L (23-300); Potassium 4.5 mmol/L (3.4-5.0); Sodium 139 mmol/L (137-145)
[2024-05-17 16:52] LABS: Add Urine Microscopic? YES; Appearance Urine Clear (Clear); Bacteria Urine 4+ /hpf; Bilirubin Urine Negative (Negative); Blood Urine Negative (Negative); Color Urine Yellow (Yellow); Glucose Urine UA Negative (Negative); Ketones Urine Negative (Negative); Leukocyte Esterase Ur 2+ LEU/UL (Negative); Nitrate Urine Positive (Negative); Non Pathogenic Casts 0-2; Protein Urine Negative (Negative); RBC Urine 0-2 /hpf (0-2); Squamous Epithelial Cell Urine None Seen /hpf (Few); Urobilinogen Urine 0.2 mg/dL (<2.0); pH Urine 5.5 (5.0-9.0)
[2024-05-17 16:59] VITALS: BP 128/82; PULSE 66; RESP 16; O2SAT 97
--- NOTE | 2024-05-17 17:46 | ED.GENADULT ---
HPI - General Adult General Chief complaint: Abdominal Pain Stated complaint: low abd/back pain Time Seen by Provider: 05/17/24 16:03 History of Present Illness HPI narrative: Patient is a 73-year-old female who presents ER with lower abdominal pain. Cramping. Ongoing over last several days. She thought it was related to constipation but clean herself out with magnesium citrate. She is concerned that she may have an impaction however that stools leaking around. She was recently diagnosed with UTI but her PCP was awaiting sensitivities for treatment. Mild dysuria. No flank pain. Denies fevers or chills or sweats Related Data Home Medications Medication Instructions Recorded Confirmed cetirizine 10 mg capsule (Zyrtec) 10 mg PO BID 06/10/19 02/21/24 levalbuterol tartrate 45 2 inhalation inhalation Q4-6H PRN 06/10/19 02/21/24 mcg/actuation aerosol inhaler Dyspnea (Xopenex HFA) fluticasone propionate 50 1 spray intranasal BID 04/14/20 02/21/24 mcg/actuation nasal spray,suspension (Flonase Allergy Relief) olopatadine 0.6 % nasal spray 2 spray intranasal BID 04/14/20 02/21/24 omalizumab 150 mg subcutaneous 300 mg subcut .[id number] 05/19/20 02/21/24 solution (Xolair) fluticasone furoate 200 1 inh inhalation Q24H 03/10/22 02/21/24 mcg-vilanterol 25 mcg/dose inhalation powder (Breo Ellipta) hydroxyzine HCl 10 mg tablet 10 mg PO DAILY 12/06/22 02/21/24 buspirone 15 mg tablet mg PO 12/19/23 02/21/24 cyclobenzaprine 5 mg tablet mg PO 12/19/23 02/21/24 tiotropium bromide 2.5 2 puff inhalation DAILY 02/21/24 02/21/24 mcg/actuation mist for inhalation (Spiriva Respimat) Allergies Allergy/AdvReac Type Severity Reaction Status Date / Time NSAIDS (Non-Steroidal AdvReac Severe Abdominal Verified 05/17/24 14:00 Anti-Inflamma Pain adhesive AdvReac Unknown Itching Verified 05/17/24 14:00 Review of Systems Review of Systems: All systems reviewed & are unremarkable except as noted in HPI and below Constitutional: Constitutional: Reports no additional constitutional complaints Gastrointestinal: Gastrointestinal: Reports abdominal pain, Reports constipation, Denies nausea and Denies vomiting Genitourinary: Genitourinary: Denies hematuria, Reports dysuria, Reports pelvic pain and Denies flank pain Musculoskeletal: Musculoskeletal: Reports no additional musculoskeletal complaints [facility] Past Medical History Medical History GUS positive Cataract Concussion COPD (chronic obstructive pulmonary disease) CPAP (continuous positive airway pressure) dependence Generalized osteoarthritis of multiple sites Globus sensation Incontinence Obstructive sleep apnea on CPAP Right upper quadrant pain Syncope TMJ (temporomandibular joint disorder) Undifferentiated connective tissue disease Vertigo Surgical History Surgical History History of bariatric surgery History of cholecystectomy History of partial hysterectomy Family History Family History Father Family history of primary malignant neoplasm of liver Family history of alcoholism, Onset Age: 72 Family history of liver disease Carcinoma of colon Mother Asthma, Onset Age: 42 Social History Social History Smoking packs per day: 1 Smoking cigarettes per day: 20.0 Years smoked: 20 Smoking pack-years: 20.00 Smoking status: Former smoker Tobacco type: cigarettes Smoking end date: 07/24/88 Alcohol intake: never Substance use: current Substance use type: marijuana Other substance usage details: MEDICAL MJ PILL FORM or Gummies Do You Feel Safe in your Home?: Yes Lack of Transportation: No Lack of Food: Never True Current Housing: I Have Housing Concerned About Future Housing: No Difficulty Paying Gas/Electric Bills: No Difficulty Paying for Meds: No Currently Unemployed: No Education: Associate Degree Difficulty w/ Childcare or Family Care: No Living arrangements: with family Additional living arrangements comments: [facility] Spiritual care concerns: No Exam Narrative: GENERAL: Well-appearing, well-nourished, and in no acute distress. HEAD: Normocephalic, atraumatic. ENT: Mucous membranes moist. CHEST: Clear to auscultation. No respiratory distress. HEART: Regular rate and rhythm. Normal peripheral pulses. ABDOMEN: Soft, nontender, nondistended. Digital rectal exam negative for fecal impaction. Normal appearing stool. No blood. EXTREMITIES: Normal range of motion. No edema. SKIN: Warm, dry, no rash. NEURO: Alert and oriented x3. PSYCH: Normal mood and affect. Course Course Emergency Course: Symptoms felt to be related to UTI. Cephalexin x1 here. Discharged with same prescription. Patient verbalized understanding treatment plan. Vital Signs Vital signs: Vital Signs Temperature 97.9 F 05/17/24 14:11 Pulse Rate 76 05/17/24 14:11 Respiratory Rate 17 05/17/24 14:11 Blood Pressure 139/70 05/17/24 14:11 Pulse Oximetry 95 05/17/24 14:11 Temperature 97.9 F 05/17/24 14:11 Pulse Rate 66 05/17/24 16:59 Respiratory Rate 16 05/17/24 16:59 Blood Pressure 128/82 05/17/24 16:59 Pulse Oximetry 97 05/17/24 16:59 Medical Decision Making Vital Signs Vital Signs: Vital Signs Temperature 97.9 F 05/17/24 14:11 Pulse Rate 76 05/17/24 14:11 Respiratory Rate 17 05/17/24 14:11 Blood Pressure 139/70 05/17/24 14:11 Pulse Oximetry 95 05/17/24 14:11 Temperature 97.9 F 05/17/24 14:11 Pulse Rate 66 05/17/24 16:59 Respiratory Rate 16 05/17/24 16:59 Blood Pressure 128/82 05/17/24 16:59 Pulse Oximetry 97 05/17/24 16:59 Lab Data 05/17/24 16:23 05/17/24 16:23 Labs: Lab Results 05/17/24 05/17/24 Range/Units 16:23 16:42 WBC 9.9 (4.5-10.0) K/mm3 RBC 4.31 (4.2-5.4) M/mm3 Hgb 11.8 L (12.0-15.0) g/dL Hct 37.3 (37.0-47.0) % MCV 86.5 (80-100) fl MCH 27.4 (26-34) pg MCHC 31.6 L (32-36) g/dl RDW 17.2 H (11.5-14.5) % Plt Count 311 (150-375) k/mm3 MPV 9.2 (7.4-10.4) fl Immature Gran % (Auto) 0.3 (0-0.5) % Neut % (Auto) 61.4 (45.5-73.1) % Lymph % (Auto) 24.7 (18.3-44.2) % [place] % (Auto) 9.2 H (2.6-8.5) % Eos % (Auto) 3.6 (0-4.4) % Baso % (Auto) 0.8 (0.2-1.2) % Lymph # (Auto) 2.45 (0.9-3.2) K/mm3 [place] # (Auto) 0.9 H (0.1-0.6) K/mm3 Eos # (Auto) 0.4 H (0-0.3) K/mm3 Baso # (Auto) 0.1 (0.0-0.1) K/mm3 Abs Immat Gran (auto) 0.03 (0.00-0.031) K/mm3 Absolute Neuts (auto) 6.1 (1.3-6.7) K/mm3 Absolute Nucleated RBC 0.000 (0.0-0.012) K/mm3 Nucleated RBC % 0.0 (0.0-0.2) % Sodium 139 (137-145) mmol/L Potassium 4.5 (3.4-5.0) mmol/L Chloride 100 (98-107) mmol/L Carbon Dioxide 31 H (22-30) mmol/L Anion Gap 8 (4-12) mmol/L BUN 20 H (7-17) mg/dL Creatinine 0.80 (0.7-1.0) mg/dL Estim Creat Clear Calc 61 ml/min Estimated GFR > 60 (59 - ) Glucose 96 (65-110) mg/dL Calcium 10.3 H (8.4-10.2) mg/dL Total Bilirubin 0.5 (0.2-1.3) mg/dL AST 24 (14-36) U/L ALT 20 (6-35) U/L Alkaline Phosphatase 82 (38-126) U/L Total Protein 7.0 (6.3-8.2) g/dL Albumin 4.2 (3.5-5.1) g/dL Lipase 44 (23-300) U/L Urine Color Yellow (Yellow) Urine Appearance Clear (Clear) Urine pH 5.5 (5.0-9.0) Ur Specific Peck 1.010 (1.001-1.035) Urine Protein Negative (Negative) mg/dL Urine Glucose (UA) Negative (Negative) mg/dL Urine Ketones Negative (Negative) mg/dL Ur Blood (Man) Negative (Negative) Urine Nitrate Positive H (Negative) Urine Bilirubin Negative (Negative) Urine Urobilinogen 0.2 (<2.0) mg/dL Leukocyte Esterase Rfl 2+ H (Negative) TANYA/UL Urine RBC 0-2 (0-2) /hpf Urine WBC 11-20 H (0-3) /hpf Ur Squamous Epith Cells None seen (Few) /hpf Urine Bacteria 4+ H /hpf Urine Casts 0-2 Discharge Plan Discharge Clinical Impression: Acute UTI Patient Disposition: Home, Self-Care Condition: Stable Instructions: Urinary Tract Infection in Women (ED) Additional Instructions: You should return to the emergency department if you develop severe nausea and vomiting and are unable to keep liquids down, if you develop severe back/flank or stomach pain, or if your symptoms are not clearly improving at home. Prescriptions: New cephalexin 500 mg capsule 500 mg PO Q12H Qty: 14 0RF No Action olopatadine 0.6 % spray,non-aerosol 2 spray NASAL BID Rx Instructions: administer into each nostril fluticasone propionate [Flonase Allergy Relief] 50 mcg/actuation spray,suspension 1 spray NASAL BID Rx Instructions: administer into each nostril Xolair 150 mg recon soln 300 mg [id number] hydroxyzine HCl 10 mg tablet 10 mg PO DAILY duloxetine 60 mg capsule,delayed release(DR/EC) See Rx Instructions .ROUTE .COMPLEX Qty: 180 1RF Dose Instruction: TAKE 1 CAPSULE BY MOUTH TWICE A DAY Rx Instructions: TAKE 1 CAPSULE BY MOUTH TWICE A DAY hydroxychloroquine [Plaquenil] 200 mg tablet 400 mg PO DAILY Qty: 180 1RF folic acid 1 mg tablet 1 mg PO DAILY Qty: 90 1RF methotrexate sodium 2.5 mg tablet See Rx Instructions PO WEEKLY Qty: 120 1RF Rx Instructions: 25 mg (10 tab) orally weekly; cyclobenzaprine 5 mg tablet PO buspirone 15 mg tablet PO levalbuterol tartrate [Xopenex HFA] 45 mcg/actuation HFA aerosol inhaler 2 inhalation INHALATION Q4-6H PRN (Reason: Dyspnea) Zyrtec 10 mg capsule 10 mg PO BID fluticasone furoate-vilanterol [Breo Ellipta] 200-25 mcg/dose blister with device 1 inh inhalation Q24H levalbuterol HCl 1.25 mg/3 mL solution for nebulization 1.25 mg inhalation Q4H Qty: 75 0RF (DME) thumb spica splint See Rx Instructions .Route .MEDSUPPLY Qty: 1 0RF Rx Instructions: As directed methylphenidate HCl 20 mg tablet extended release 20 mg PO DAILY Qty: 30 0RF Spiriva Respimat 2.5 mcg/actuation mist 2 puff inhalation DAILY esomeprazole magnesium 40 mg capsule,delayed release(DR/EC) See Rx Instructions .ROUTE .COMPLEX Qty: 180 1RF Dose Instruction: TAKE 1 CAPSULE BY MOUTH TWICE DAILY Rx Instructions: TAKE 1 CAPSULE BY MOUTH TWICE DAILY (DME) lancets [Accu-Chek Softclix Lancets] Misc See Rx Instructions .ROUTE .MEDSUPPLY Qty: 100 3RF Rx Instructions: use to check blood sugar once a day dicyclomine 10 mg capsule 10 mg PO TID PRN (Reason: abdominal pain) Qty: 21 0RF (DME) Accu-Chek Anna Plus test strp Strip See Rx Instructions .ROUTE .MEDSUPPLY Qty: 100 4RF Rx Instructions: use to check blood sugar once a day Linzess 290 mcg capsule See Rx Instructions .ROUTE .COMPLEX Qty: 90 3RF Dose Instruction: TAKE 1 CAPSULE BY MOUTH EVERY DAY Rx Instructions: TAKE 1 CAPSULE BY MOUTH EVERY DAY tramadol 50 mg tablet 50 mg PO Q8H PRN (Reason: pain) Qty: 30 0RF oxybutynin chloride 5 mg tablet See Rx Instructions .ROUTE .COMPLEX Qty: 180 3RF Dose Instruction: TAKE 1 TABLET BY MOUTH TWICE A DAY Rx Instructions: TAKE 1 TABLET BY MOUTH TWICE A DAY Follow-up/Referrals: Jackie Rizvi MD [Primary Care Provider] - 1 Week
[2024-05-17] MEDS: CEPHALEXIN 500 MG CAPSULE PO (18:18)
[2024-05-17 18:54] VITALS: BP 126/85; PULSE 65; RESP 15; TEMP 36.4; O2SAT 95
== END 2024-05-17 18:59 | disposition home or self-care (01) ==
PROVIDERS: Emergency Provider Emergency Medicine; PCP Family Medicine
DX: N39.0 Urinary tract infection, site not specified (principal); J44.9 Chronic obstructive pulmonary disease, unspecified; G47.33 Obstructive sleep apnea (adult) (pediatric); M19.90 Unspecified osteoarthritis, unspecified site; Z98.84 Bariatric surgery status; Z87.891 Personal history of nicotine dependence; Z90.49 Acquired absence of other specified parts of digestive tract; Z90.711 Acquired absence of uterus with remaining cervical stump; Z79.620 Long term (current) use of immunosuppressive biologic; Z79.899 Other long term (current) drug therapy
CPT/HCPCS: 36415; 80053; 81001; 83690; 85025; 87077; 87086; 87186; 99283; A9270

== ENCOUNTER 2024-12-17 19:58 | Emergency (ER) | payer MEDICARE, SELFPAY ==
--- NOTE | ~2024-12-17 | XR_ITS ---
XR hip LT 2V w AP pelvis Ordering provider: Mitchell Musa MD History: . hip pain . Comparison: None. FINDINGS: BONES: No acute fracture or dislocation. HIP JOINT SPACES: Bilateral moderate narrowing. SACROILIAC JOINT SPACES/LUMBAR SPINE: The sacroiliac joint spaces are normal. Mild degenerative edge es of the visualized lower lumbar spine. PUBIC SYMPHYSIS: Normal. SOFT TISSUES: Normal. IMPRESSION: No acute osseous abnormality pelvis and left hip. Bilateral hip moderate osteoarthritic changes. Reviewed, dictated and finalized at location A.
[2024-12-17 20:02] VITALS: BP 123/82; PULSE 67; RESP 16; TEMP 36.9; O2SAT 97
[2024-12-17 20:28] LABS: Basophils Absolute Auto 0.1 K/mm3 (0.0-0.1); Basophils Percent Auto 0.7 % (0.2-1.2); Eosinophils Absolute Auto 0.3 K/mm3 (0-0.3); Eosinophils Percent Auto 2.5 % (0-4.4); Hematocrit 37.5 % (37.0-47.0); Hemoglobin 11.3 g/dL (12.0-15.0); Immature Granulocyte Absolute 0.06 K/mm3 (0.00-0.031); Immature Granulocyte Percent A 0.6 % (0-0.5); Lymphocytes Absolute Auto 3.83 K/mm3 (0.9-3.2); Lymphocytes Percent Auto 35.3 % (18.3-44.2); Mean Corpuscular HGB Conc 30.1 g/dl (32-36); Mean Corpuscular Hemoglobin 26.2 pg (26-34); Mean Corpuscular Volume 86.8 fl (80-100); Mean Platelet Volume 8.7 fl (7.4-10.4); Monocytes Absolute Auto 0.9 K/mm3 (0.1-0.6); Monocytes Percent Auto 8.3 % (2.6-8.5); Neutrophils Absolute Auto 5.7 K/mm3 (1.3-6.7); Neutrophils Percent Auto 52.6 % (45.5-73.1); Platelet Count Result 351 k/mm3 (150-375); Red Blood Count 4.32 M/mm3 (4.2-5.4); Red Cell Distribution Width 17.8 % (11.5-14.5); White Blood Count 10.9 K/mm3 (4.5-10.0)
--- NOTE | 2024-12-17 20:36 | ED.EXTPRO ---
HPI - Extremity Problem General Chief complaint: Extremity Problem,Nontraumatic Stated complaint: LEFT HIP & ARM PAIN; NO TRAUMA Time Seen by Provider: 12/17/24 20:12 History of Present Illness HPI Narrative: 74-year-old female presents emergency department for evaluation for left leg pain consistent with sciatica. Patient does report a prior history of sciatica. Patient did have an ablation done by her pain specialist a few weeks ago. Patient states this did help with her lower back pain but now patient is having left-sided sciatica. They did call in her a prescription for prednisone and diazepam. Patient states she completed both courses medications and is still having persistent pain. Patient denies any associated numbness or change in bowel or bladder habits. Related Data Home Medications ?Medication ?Instructions ?Recorded ?Confirmed ?Last Taken ?Type cetirizine 10 mg capsule (Zyrtec) 10 mg PO BID 06/10/19 09/18/24 03/11/21 History levalbuterol tartrate 45 2 inhalation inhalation Q4-6H PRN 06/10/19 09/18/24 03/12/21 History mcg/actuation aerosol inhaler Dyspnea (Xopenex HFA) fluticasone propionate 50 1 spray intranasal BID 04/14/20 09/18/24 03/12/21 History mcg/actuation nasal spray,suspension (Flonase Allergy Relief) olopatadine 0.6 % nasal spray 2 spray intranasal BID 04/14/20 09/18/24 03/11/21 History omalizumab 150 mg subcutaneous 300 mg subcut .[id number] 05/19/20 09/18/24 03/04/21 History solution (Xolair) fluticasone furoate 200 1 inh inhalation Q24H 03/10/22 09/18/24 Unknown History mcg-vilanterol 25 mcg/dose inhalation powder (Breo Ellipta) hydroxyzine HCl 10 mg tablet 10 mg PO DAILY 12/06/22 09/18/24 Unknown History buspirone 15 mg tablet mg PO 12/19/23 09/18/24 Unknown History cyclobenzaprine 5 mg tablet mg PO 12/19/23 09/18/24 Unknown History tiotropium bromide 2.5 2 puff inhalation DAILY 02/21/24 09/18/24 Unknown History mcg/actuation mist for inhalation (Spiriva Respimat) hydroxyzine HCl 25 mg tablet mg PO 06/25/24 09/18/24 Unknown History probiotic 60 billion PO .qd 06/25/24 09/18/24 Unknown History tizanidine 4 mg tablet mg PO 06/25/24 09/18/24 Unknown History Allergies Allergy/AdvReac Type Severity Reaction Status Date / Time adhesive AdvReac Unknown Itching Verified 09/18/24 13:03 Review of Systems Review of Systems: All systems reviewed & are unremarkable except as noted in HPI and below PMFSH Past Medical History Medical History Undifferentiated connective tissue disease De Quervain's disease (tenosynovitis) GUS positive Chronic fungal laryngitis Family conflict Globus sensation Syncope Concussion Generalized osteoarthritis of multiple sites TMJ (temporomandibular joint disorder) CPAP (continuous positive airway pressure) dependence Cataract Incontinence Vertigo Surgical History Surgical History History of bariatric surgery History of partial hysterectomy History of cholecystectomy Family History Family History Father Family history of primary malignant neoplasm of liver Family history of alcoholism, Onset Age: 72 Family history of liver disease Carcinoma of colon Mother Asthma, Onset Age: 42 Social History Social History Smoking packs per day: 1 Smoking cigarettes per day: 20.0 Years smoked: 20 Smoking pack-years: 20.00 Smoking status: Former smoker Tobacco type: cigarettes Smoking end date: 07/24/88 Alcohol intake: never Substance use: current Substance use type: marijuana Other substance usage details: MEDICAL MJ PILL FORM or Gummies Do You Feel Safe in your Home?: Yes Lack of Transportation: No Lack of Food: Never True Current Housing: I Have Housing Concerned About Future Housing: No Difficulty Paying Gas/Electric Bills: No Difficulty Paying for Meds: No Currently Unemployed: No Education: Associate Degree Difficulty w/ Childcare or Family Care: No Living arrangements: with family Additional living arrangements comments: [facility] Spiritual care concerns: No Exam Narrative: APPEARANCE: Well appearing, no pain, no distress, well-nourished. HEAD: normocephalic, atraumatic. EYES: PERRLA/EOMI, conjunctivae clear. NOSE: Normal no drainage EARS:TMS clear with good light reflex. THROAT: Pharynx clear, no exudate. NECK: Supple. No adenopathy, no masses. RESPIRATORY: Airway patent, respirations nonlabored. Clear to auscultation bilaterally, no rales, rhonchi, wheezing. CARDIOVASCULAR: Regular rate and rhythm without murmurs rubs or gallops. ABDOMINAL: Soft, nontender, nondistended, normal bowel sounds MUSCULOSKELETAL: Moves all extremities. Strength/ROM intact, No edema, No calf tenderness. NEURO: Alert. Cranial nerves II through XII intact. Good gait. Good coordination SKIN: Warm, dry. Normal Color Course Vital Signs Vital signs: Vital Signs Temperature 98.4 F 12/17/24 20:02 Pulse Rate 67 12/17/24 20:02 Respiratory Rate 16 12/17/24 20:02 Blood Pressure 123/82 12/17/24 20:02 Pulse Oximetry 97 12/17/24 20:02 Oxygen Delivery Room Air 12/17/24 20:02 Temperature 98.4 F 12/17/24 20:02 Pulse Rate 67 12/17/24 20:02 Respiratory Rate 16 12/17/24 20:02 Blood Pressure 123/82 12/17/24 20:02 Pulse Oximetry 97 12/17/24 20:02 Oxygen Delivery Room Air 12/17/24 20:02 MDM - Extremity (Nontraumatic) MDM Narrative Medical decision making narrative: 74-year-old female presents emergency department for evaluation for left-sided sciatica. Patient will be discharged home on a Medrol Dosepak and provided [place] for additional pain control. Patient does have muscle relaxers that she takes at home. Patient was encouraged to continue have close follow-up with her pain specialist. All questions concerns were addressed patient was well-appearing at time of discharge. Differential Diagnosis Differential diagnosis: Likely deep venous thrombosis of upper extremity, lower extremity edema and other Lab Data 12/17/24 20:23 12/17/24 20:23 Labs: Lab Results 12/17/24 12/17/24 Range/Units 20:23 20:23 WBC 10.9 H (4.5-10.0) K/mm3 RBC 4.32 (4.2-5.4) M/mm3 Hgb 11.3 L (12.0-15.0) g/dL Hct 37.5 (37.0-47.0) % MCV 86.8 (80-100) fl MCH 26.2 (26-34) pg MCHC 30.1 L (32-36) g/dl RDW 17.8 H (11.5-14.5) % Plt Count 351 (150-375) k/mm3 MPV 8.7 (7.4-10.4) fl Immature Gran % (Auto) 0.6 H (0-0.5) % Neut % (Auto) 52.6 (45.5-73.1) % Lymph % (Auto) 35.3 (18.3-44.2) % [place] % (Auto) 8.3 (2.6-8.5) % Eos % (Auto) 2.5 (0-4.4) % Baso % (Auto) 0.7 (0.2-1.2) % Lymph # (Auto) 3.83 H (0.9-3.2) K/mm3 [place] # (Auto) 0.9 H (0.1-0.6) K/mm3 Eos # (Auto) 0.3 (0-0.3) K/mm3 Baso # (Auto) 0.1 (0.0-0.1) K/mm3 Abs Immat Gran (auto) 0.06 H (0.00-0.031) K/mm3 Absolute Neuts (auto) 5.7 (1.3-6.7) K/mm3 Absolute Nucleated RBC 0.000 (0.0-0.012) K/mm3 Nucleated RBC % 0.0 (0.0-0.2) % PT 12.7 (11.1-14.7) Seconds INR 0.9 APTT Cancelled 25.8 Sodium 137 (137-145) mmol/L Potassium 4.5 (3.4-5.0) mmol/L Chloride 106 (98-107) mmol/L Carbon Dioxide 28 (22-30) mmol/L Anion Gap 3 L (4-12) mmol/L BUN 23 H (7-17) mg/dL Creatinine 0.81 (0.7-1.0) mg/dL Estim Creat Clear Calc 61 ml/min Estimated GFR > 60 (59 - ) Glucose 77 (65-110) mg/dL Calcium 9.6 (8.4-10.2) mg/dL Imaging Data Radiologist's impression: Impressions Hip/Pelvis X-Ray 12/17/24 21:32 IMPRESSION: No acute osseous abnormality pelvis and left hip. Bilateral hip moderate osteoarthritic changes. Discharge Plan Discharge Clinical Impression: Sciatica Patient Disposition: Home Condition: Stable Instructions: Antibiotic Form, Sciatica (ED) Additional Instructions: Ibuprofen for pain control. [place] as needed for additional pain control. Medrol Dosepak as directed for inflammation. Your home tizanidine as needed for muscle relaxation. Have close follow-up with your pain specialist. If you have any worsening symptoms then please call or return to the emergency department. Patient Language: Arabic Prescriptions: New hydrocodone-acetaminophen 5-325 mg tablet 1 tablet PO Q12H PRN (Reason: pain) Qty: 14 0RF methylprednisolone [Medrol (Yury)] 4 mg tablets,dose pack See Rx Instructions .ROUTE .COMPLEX Qty: 21 0RF Rx Instructions: for 6 days No Action olopatadine 0.6 % spray,non-aerosol 2 spray NASAL BID Rx Instructions: administer into each nostril fluticasone propionate [Flonase Allergy Relief] 50 mcg/actuation spray,suspension 1 spray NASAL BID Rx Instructions: administer into each nostril Xolair 150 mg recon soln 300 mg [id number] hydroxyzine HCl 10 mg tablet 10 mg PO DAILY duloxetine 60 mg capsule,delayed release(DR/EC) See Rx Instructions .ROUTE .COMPLEX Qty: 180 1RF Dose Instruction: TAKE 1 CAPSULE BY MOUTH TWICE A DAY Rx Instructions: TAKE 1 CAPSULE BY MOUTH TWICE A DAY hydroxychloroquine [Plaquenil] 200 mg tablet 400 mg PO DAILY Qty: 180 1RF folic acid 1 mg tablet 1 mg PO DAILY Qty: 90 1RF methotrexate sodium 2.5 mg tablet See Rx Instructions PO WEEKLY Qty: 120 1RF Rx Instructions: 25 mg (10 tab) orally weekly; cyclobenzaprine 5 mg tablet PO buspirone 15 mg tablet PO levalbuterol tartrate [Xopenex HFA] 45 mcg/actuation HFA aerosol inhaler 2 inhalation INHALATION Q4-6H PRN (Reason: Dyspnea) Zyrtec 10 mg capsule 10 mg PO BID fluticasone furoate-vilanterol [Breo Ellipta] 200-25 mcg/dose blister with device 1 inh inhalation Q24H levalbuterol HCl 1.25 mg/3 mL solution for nebulization 1.25 mg inhalation Q4H Qty: 75 0RF (DME) thumb spica splint See Rx Instructions .Route .MEDSUPPLY Qty: 1 0RF Rx Instructions: As directed Spiriva Respimat 2.5 mcg/actuation mist 2 puff inhalation DAILY tizanidine 4 mg tablet PO hydroxyzine HCl 25 mg tablet PO probiotic 60 billion PO .qd (DME) lancets [Accu-Chek Softclix Lancets] Misc See Rx Instructions .ROUTE .MEDSUPPLY Qty: 100 3RF Rx Instructions: use to check blood sugar once a day dicyclomine 10 mg capsule 10 mg PO TID PRN (Reason: abdominal pain) Qty: 21 0RF (DME) Accu-Chek Anna Plus test strp Strip See Rx Instructions .ROUTE .MEDSUPPLY Qty: 100 4RF Rx Instructions: use to check blood sugar once a day oxybutynin chloride 5 mg tablet See Rx Instructions .ROUTE .COMPLEX Qty: 180 3RF Dose Instruction: TAKE 1 TABLET BY MOUTH TWICE A DAY Rx Instructions: TAKE 1 TABLET BY MOUTH TWICE A DAY lubiprostone 24 mcg capsule 24 mcg PO BID Qty: 180 1RF esomeprazole magnesium 40 mg capsule,delayed release(DR/EC) See Rx Instructions .ROUTE .COMPLEX Qty: 180 1RF Dose Instruction: TAKE 1 CAPSULE BY MOUTH TWICE A DAY Rx Instructions: TAKE 1 CAPSULE BY MOUTH TWICE A DAY methylphenidate HCl [Concerta] 27 mg tablet extended release 24hr 27 mg PO QAM Qty: 30 0RF methylphenidate HCl 20 mg tablet 20 mg PO DAILY Qty: 30 0RF Rx Instructions: Take 1 tablet by mouth around noon-afternoon if needed. diazepam 5 mg tablet 5 mg PO BID PRN (Reason: muscle spasm) Qty: 30 0RF prednisone 20 mg tablet 20 mg PO DAILY Qty: 5 0RF Follow-up/Referrals: Jackie Rizvi MD [Primary Care Provider] -
[2024-12-17 20:39] LABS: Anion Gap 3 mmol/L (4-12); Blood Urea Nitrogen 23 mg/dL (7-17); Calcium 9.6 mg/dL (8.4-10.2); Carbon Dioxide 28 mmol/L (22-30); Chloride 106 mmol/L (98-107); Estimated CRCL calculation 61 ml/min; Estimated Glomerular Filt Rate > 60; Glucose 77 mg/dL (65-110); Potassium 4.5 mmol/L (3.4-5.0); Sodium 137 mmol/L (137-145)
[2024-12-17] MEDS: KETOROLAC (*BKC) 60 MG/2 ML VIAL IM (20:44)
[2024-12-17] MEDS: HYDROcodone/acetaminophen (*CRX) 10-325 MG TABLET 1 TAB PO (20:44)
[2024-12-17 20:47] LABS: INR 0.9; Partial Thromboplastin Time 25.8 Seconds (22.3-36.8); Prothrombin Time 12.7 Seconds (11.1-14.7)
--- OUTSIDE RECORDS SUMMARY | 2024-12-17 20:53 | XMS_ITS | Continuity of Care Document ---
Author Organization [facility] Address [address] [place] [address] Phone Care Team Providers Care Pastoral Worker Name Role Phone RCM, Rendering Unavailable Unavailable Advance Directives Directive Yes / No Effective Date File Name No Information Encounters Encounter Description Practice Location Reason(s) For Visit Diagnoses Date Provider Providers Copied on Encounter [facility] , [address] [place], [place], [id number], [place] tel:[phone] [facility] Location No Information [facility] Rendering. [address] [place], [address], [place]. tel:[phone] Family History Family Member Type Diagnosis Age At Onset No Information Payers Payer name Insurance type Covered alliance party ID Authoriza tion(s) No Information Social History Type Description Quantity Date Captured Comments Sex Female Smoking Status No Information Chief Complaint And Reason For Visit No Information Reason For Referral Reason For Referral No Information History Of Present Illness Encounter Date Complaint History Of Prese nt Illness No Information Functional Status Date Functional Assessmen t No Information Instructions Date Instruction Additional Infor mation No Information Assessments Type Assessment Date No Information Patient Care Teams Name Effective Dates (start - stop) Status Members No Information
--- OUTSIDE RECORDS SUMMARY | 2024-12-17 20:54 | XMS_ITS ---
Author Organization [facility] misha Address [address] [place] [address] Care Team Providers Care Night Warehouse Selector Name Role Phone Jackie Rizvi MD Primary Care Provider Floridalma StringerIngridjose Salmeron [phone] REASON FOR VISIT Hydroxychloroquine 200mg tablets Medications Medication SIG (Take, Route, Frequency, Duration) Notes Start Date End Date Status Hydroxychloroquine Sulfate 200 MG 1 Orally twice a day for 90 days 02/11/2025 Active Encounters Encounter Location Date Provider Diagnosis [facility] [address] [place] [address] 11/13/2024 Adri Myke Plan Of Treatment Medication Medication Name Sig Start Date Stop Date Notes Hydroxychloroquine Sulfate 200 MG 1 Oral ly twice a day for 90 days 02/11/2025 Next Appt Details Provider Name:Adri Myke, 02/11 01:15:00 PM, [address], [place], [address], Progress Notes * Sheila LANDISDOB:1950 (74 yo F)Acc No.[id number]:11/13/2024 Patient: Sheila NORRIS :1950 A ge:74 Y S ex:Female Address:[address] [place], [address] * Refills Refill Hydroxychloroquine Sulfate Tablet, 200 MG, Orally, 180, 1, twice a day, 90 days, Refills=0 * true * Date: Generated for Printi ng/Faxing/eTransmitting on: 0 12/17/2024 08:53 PM CDT
--- OUTSIDE RECORDS SUMMARY | 2024-12-17 20:54 | XMS_ITS ---
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 Sleeping. Encounters Encounter Location Date Provider Diagnosis [facility] [address] [facility] [address] [place] [address] 11/13/2024 Adri Stringer Plan Of Treatment Next Appt Details Provider Name:Adri Stringer, 02/11 01:15:00 PM, [address] [facility] [address], [place], [address], Progress Notes * Sheila LANDISDOB:1950 (74 yo F)Acc No.[id number]:11/13/2024 Patient: Sheila NORRIS :1950 A ge:74 Y S ex:Female Address:[address], [place], [address] * true * Date: Generated for Printi ng/Faxing/eTransmitting on: 0 12/17/2024 08:54 PM CDT
--- OUTSIDE RECORDS SUMMARY | 2024-12-17 20:55 | XMS_ITS | Patient Health Record ---
Author Organization Formerly [facility] [employer] [place] ([address]) Address [address] [place] [address] [address] Care Team Providers Care Promotion Manager Name Role Phone Jackie Rizvi MD Primary Care Provider Akosua Block Unavailable [phone] Dano Hermosillo Unavailable [phone] [facility], Provider Unavailable Unavailab le Allergies No Known Allergies Results Component Value Reference Range Notes Spirometry Reviewed date:02/21/2024 11:11:14 AM Interpretation:Normal Performing Lab: Notes/Report: Normal SpiroPreBronchodilator_FVC 2.98 SpiroPostBronchodilator_FEF25_75 0 SpiroPreBronchodilator_FEF25_75 2.43 SpiroPreBronchodilator_FEV1 2.4 SpiroPrecentPredictionPost_FEF25_75 0 SpiroPrecentPredictionPost_FEV1 0 SpiroPrecentPredictionPost_FEV1_OVER_FVC 0 SpiroPrecentPredictionPost_FVC 0 SpiroPrecentPredictionPre_FEF25_75 132.1 SpiroPrecentPredictionPre_FEV1 108.1 SpiroPrecentPredictionPre_FEV1_OVER_FVC 108.6 SpiroPrecentPredictionPre_FVC 100 SpiroPredicted_FEF25_75 1.84 SpiroPreBronchodilator_FEV1_OVER_FVC 80.73 SpiroPreBronchodilator_PEF 6.9 SpiroPostBronchodilator_FVC 0 SpiroPostBronchodilator_FEV1 0 SpiroPostBronchodilator_FEV1_OVER_FVC 0 SpiroPostBronchodilator_PEF 0 SpiroPredicted_FVC 2.98 SpiroPredicted_FEV1 2.22 SpiroPredicted_FEV1_OVER_FVC 74.33 SpiroPredicted_PEF 5.57 Reason For Referral No Information Medications Medication SIG (Take, Route, Frequency, Duration) Notes Start Date End Date Status VITAMIN D3 2000 intl units 1 tab(s) orally once a day Active VITAMIN D3 5000 intl units as directed orally once a day for 30 day(s) Active Fluticasone Furoate-Vilanterol 200-25 MCG/ACT INHALE 1 PUFF INTO THE LUNGS EVERY DAY for 90 Active EPIPEN 2-YURY 0.3 mg 0 mg intramuscularly once Active LEVALBUTEROL 45 mcg/inh 2 puff(s) inhale d Q4-6 hours, PRN and per the asthma action plan for 30 days Active XOLAIR 150 mg 300 mg subcutaneously every 2 weeks for 30 day(s) Active SINGULAIR 10 mg 1 tab(s) orally once a day (in the evening) for 90 days Active BUSPIRONE 15 mg 1 tab(s) orally 2 times a day for 30 days Not-Taking ESOMEPRAZOLE 40 mg 1 cap(s) orally once a day for 30 day(s) Not-Taking METHOTREXATE 2.5 mg 5 tab(s) orally once a week Not-Taking NASAL WASHES N/A as directed intranasally as needed for 30 Active SPIRIVA RESPIMAT 2.5 mcg/inh 2 puff(s) inhaled once a day for 90 day(s) Not-Taking VITAMIN D3 5000 intl units as directed orally once a day for 30 day(s) Not-Taking OLOPATADINE HYDROCHLORIDE 665 mcg/inh 2 spray(s) intranasally twice a day for 90 days Active FLUTICASONE PROPIONATE 50 mcg/inh 2 sprays intranasally Qday, PRN for 90 days Not-Taking PREDNISONE 20 mg 2 tab(s) orally once a day for 4 days 3 Not-Taking DULOXETINE 60 mg 1 cap(s) orally once a day for 30 day(s) Not-Taking ZYRTEC 10mg 1 tablet PO QD Not -Taking LINZESS 290 mcg 1 cap(s) orally once a day Not-Taking OLOPATADINE HYDROCHLORIDE 665 MCG/INH 2 SPRAY(S) INTRANASALLY BID for 90 DAYS *Please review for potential replacement for e-prescription and drug interaction check* Not-Taking ZyrTEC 10mg 1 tablet PO QD Act maria teresa SPIRIVA RESPIMAT 60 ACT 2.5 MCG/INH 2 PUFF(S) INHALED ONCE A DAY 90 DAY(S) INHALED ONCE A DAY for 90 DAYS *Please review for potential replacement for e-prescription and drug interaction check* Not-Taking BREO ELLIPTA 200 mcg-25 mcg/inh 1 puff(s) inhaled once a day for 30 day(s) Not-Taking Linzess 290 MCG 1 cap(s) orally once a day Not-Taking Spiriva Respimat 2.5 MCG/ACT INHALE 2 PUFFS INTO THE LUNGS EVERY DAY FOR 90 DAYS for 90 Not-Taking IPRATROPIUM NASAL 42 mcg/inh 2 spray(s) intranasally three times a day for 30 days Not-Taking VITAMIN B-12 1000 mcg/mL 1ml intramuscularly once a month Active Breo Ellipta 200 MCG-25 MCG/INH 1 PUFF(S) INHALED ONCE A DAY for 30 DAY(S) *Please review and pick correct strength-formul ation from [employer] options. If intended option is not shown, discontinue and re-order from Quick Search* Not-Taking Gabapentin 100 MG 1 cap(s) orally 3 times a day for 30 day(s) Not-Taking OXYBUTYNIN 5 mg 1 tab(s) orally QD Active Levalbuterol HCl 45 MCG/INH 2 PUFF(S) INHALED Q4-6 HOURS, PRN AND PER THE ASTHMA ACTION PLAN for 30 DAYS *Please review and pick correct strength-formul ation from [employer] options. If intended option is not shown, discontinue and re-order from Quick Search* Not-Taking Prolia 60 MG/ML as directed subcutaneously every 6 months for 12 month(s) Not-Taking ALENDRONATE 70 mg 1 tab(s) orally once a week Active Breo Ellipta 200 MCG-25 MCG/INH INHALE 1 PUFF BY MOUTH EVERY DAY for 90 *Please review and pick correct strength-formul ation from [employer] options. If intended option is not shown, discontinue and re-order from Quick Search* Not-Taking ASPIR 81 81 mg 1 tab(s) orally once a day Active Levalbuterol HCl 45 MCG/INH 2 PUFF(S) INHALED Q4-6 HOURS, PRN AND PER THE ASTHMA ACTION PLAN for 30 DAY(S) *Please review and pick correct strength-formul ation from Verafinan options. If intended option is not shown, discontinue and re-order from Quick Search* Not-Taking Trelegy Ellipta 200 MCG-62.5 MCG-25 MCG/INH 1 PUFF(S) INHALED ONCE A DAY *Please review and pick correct strength-formul ation from Verafinan options. If intended option is not shown, discontinue and re-order from Quick Search* Not-Taking Fluticasone Propionate 50 MCG/ACT 1 SPRAY INTO INTO EACH NOSTRIL TWICE A DAY for 90 Not-Taking VENLAFAXINE 75 mg 1 tab(s) orally 2 times a day Active Xolair 150 MG INJECT 300 MG SUBCUTANEOUSLY EVERY 2 WEEKS. for 28 Not-Taking EpiPen 2-Yury 0.3 MG/0.3ML 0 mg intramuscularly once for 30 day(s) Not-Taking Singulair 10 MG 1 tab(s) orally once a day (in the evening) for 90 day(s) Not-Taking ZyrTEC Allergy 10 MG 1 tablet PO QD Not-Taking Levalbuterol Tartrate 45 MCG/ACT 1 puff as needed Inhalation every 6 hrs for 30 days Active Hydroxychloroquine Sulfate 200 MG 1 tab(s) orally once a day Active Ritalin 10 MG 1 tab(s) orally 2 times a day for 30 day(s) Active busPIRone HCl 15 MG 1 tab(s) orally 2 times a day for 30 days Active Xopenex HFA 45 MCG/ACT 2 puff(s) inhaled Q4-6 hours, PRN and per the asthma action plan for 90 day(s) Not-Taking hydrOXYzine HCl 10 MG 2 tab(s) orally hs Active Ipratropium [place] 0.06 % 2 spray(s) intranasally three times a day for 30 days Active EPIPEN 2-YURY 0.3 mg 0 mg intramuscularly once for 30 day(s) Not-Taking XOPENEX 1.25 MG/3 ML 3 ML BY NEBULIZER TID, PRN for 30 DAY(S) *Please review for potential replacement for e-prescription and drug interaction check* Active SINGULAIR 10 mg 1 tab(s) orally once a day (in the evening) for 90 day(s) Not-Taking GABAPENTIN 100 mg 1 cap(s) orally 3 times a day for 30 day(s) Not-Taking PROLIA 60 mg/mL as directed subcutaneously every 6 months for 12 month(s) Not-Taking Esomeprazole Magnesium 40 MG 1 cap(s) orally once a day for 30 day(s) Active Singulair 10 MG 1 tab(s) orally once a day (in the evening) for 90 days Not-Taking Methotrexate 2.5 MG 5 TAB(S) ORALLY ONCE A WEEK *Please review and pick correct strength-formul ation from [employer] options. If intended option is not shown, discontinue and re-order from Quick Search* Active predniSONE 20 MG 2 tab(s) orally once a day for 4 days 3 Not-Taking EpiPen 2-Yury 0.3 MG/0.3ML 0 mg intramuscularly once Active TRELEGY ELLIPTA 200 mcg-62.5 mcg-25 mcg/inh 1 puff(s) inhaled once a day Not-Taking DULoxetine HCl 60 MG 1 cap(s) orally onc e a day for 30 day(s) Active Aspirin 81 MG 1 tab(s) orally once a day Not-Taking ZYRTEC 10mg 1 tablet PO QD Act maria teresa oxyBUTYnin Chloride 5 MG 1 tab(s) orally QD Active Venlafaxine HCl 75 MG 1 tab(s) orally 2 times a day Active Alendronate Sodium 70 MG 1 tab(s) orally once a week Active Tamia 500 MG as directed Orally Not-Taking Cyanocobalamin 5000 MCG 1ml Sublingual daily Active Vitamin D3 125 MCG (5000 UT) as directed orally once a day for 30 day(s) Not-Taking Vitamin D3 50 MCG (2000 UT) 1 tab(s) orally once a day Active Xolair 150 MG 300 mg subcutaneously every 2 weeks for 30 day(s) Active HYDROXYCHLOROQUINE 200 mg 1 tab(s) orally once a day Not-Taking RITALIN 10 mg 1 tab(s) orally 2 times a day for 30 day(s) Not-Taking HYDROXYZINE hydrochloride 10 mg 2 tab(s) orally hs No t-Taking XOPENEX HFA 45 mcg/inh 2 puff(s) inhaled Q4-6 hours, PRN and per the asthma action plan for 90 day(s) Not-Taking Fluticasone Propionate 50 MCG/ACT 1 spray in each nostril Nasally Twice a day for 30 days Active LEVALBUTEROL 45 mcg/inh 2 puff(s) inhale d Q4-6 hours, PRN and per the asthma action plan for 30 day(s) Not-Taking Turmeric 500 MG as directed Orally Active IPRATROPIUM NASAL 42 mcg/inh 2 spray(s) intranasally three times a day for 30 days Not-Taking Breo Ellipta 200-25 MCG/ACT 1 puff Inhalation Once a day for 90 days Active XOLAIR 150 mg INJECT 300 MG SUBCUTANEOUSLY EVERY 2 WEEKS. for 28 Not-Taking Spiriva Respimat 2.5 MCG/ACT 2 puffs Inhalation Once a day for 90 days Active BREO ELLIPTA 200 mcg-25 mcg/inh INHALE 1 PUFF BY MOUTH EVERY DAY for 90 Not-Taking Immunizations Vaccine Route Administration Date Status Comme nts Covid 19 (Pfizer) Unknown 09/21/2020 Administered Covid 19 (Pfizer) Unknown 03/22/2021 Administered Fluad Unknown 04/20/2021 Administered Flucelvax Unknown 08/24/2019 Administered Fluzone Quadrivalent Unknown 05/02/2017 Administered FluZone Quadrivalent Unknown 04/28/2015 Administered Influenza Unknown 04/01/2013 Administered Influenza Unknown 05/02/2016 Refused NOC Flucelevax Quadrivalent Unknown 08/13/2020 Administered NOC Flucelvax Quadrivalent Unknown 04/26/2017 Administe red NOC Fluzone Quadrivalent Unknown 04/30/2018 Administere d NOC PedvaxHIB IM Intramuscular 09/13/2023 Administered NOC Pneumovax 23 Unknown 04/27/2015 Administered NOC Prevnar 13 Unknown 04/26/2017 Administered NOC Prevnar 20 IM Intramuscular 09/13/2023 Administered Pneumovax 23 Unknown 04/25/2017 Administered Social History Tobacco Use: Social History Observation Description Date Details (start date - stop date) Former Smoker NA - NA Sex Assigned At : Social History Observation Description Sex Assigned At Female Tobacco Control (Standard) Question Answer Notes Tobacco use: Former smoker How long has it been since you last smoked? Grea ter than 10 years Problems Problem Type SNOMED Code ICD Code Onset Dates Problem Status W/U Status Risk Notes Problem Shortness of breath (705314497) Shortness of breath (R06.02) Active confirmed Problem Mild cognitive impairment, so stated (G31.84) Active confirmed Problem Chronic allergic conjunctivitis (10277666) Other chronic allergic conjunctivitis (H10.45) Active confirmed Problem Chronic sinusitis (67345310) Chronic sinusitis, unspecified (J32.9) Active confirmed Problem Gastro-esophageal reflux disease without esophagitis (233639606) Gastro-esophageal reflux disease without esophagitis (K21.9) Active confirmed Problem Dizziness and giddiness (328816667) Dizziness and giddiness (R42) Active confirmed Problem Anaphylaxis (99864039) Anaphylactic shock, unspecified, subsequent encounter (T78.2XXD) Active confirmed Problem Anaphylaxis (91305239) Personal history of anaphylaxis (Z87.892) Active confirmed Problem Allergic rhinitis caused by pollen (disorder) (95967891) Allergic rhinitis due to pollen (J30.1) Active confirmed Problem Allergic rhinitis caused by animal hair and dander (197756447541952) Allergic rhinitis due to animal (cat) (dog) hair and dander (J30.81) Active confirmed Problem Allergic rhinitis (41499709) Other allergic rhinitis (J30.89) Active confirmed Problem Uncomplicated severe persistent asthma (129914719) Severe persistent asthma, uncomplicated (J45.50) Active confirmed Problem Chronic allergic conjunctivitis (94852980) Other chronic allergic conjunctivitis (H10.45) Active confirmed Problem Essential hypertension (21289043) Essential (primary) hypertension (I10) Active confirmed Problem Edema (85097676) Edema, unspecified (R60.9) Active confirmed Problem Vitamin D deficiency (93845538) Vitamin D deficiency, unspecified (E55.9) Active confirmed Vital Signs Respiratory Rate 18 /min 02/20/2024 Oximetry 96 % 10/31/2024 Blood pressure diastolic 75 mm Hg 10/31/2024 Height 65.5 in 10/31/2024 Blood pressure systolic 117 mm Hg 10/31/2024 Weight 221.4 lbs 09/23/2024 BMI 36.28 kg/m2 09/23/2024 Encounters Encounter Location Date Provider Diagnosis [facility] [address] [place] [id number] 01/06/2024 Provider [facility] Allergic rhinitis due to animal (cat) (dog) hair and dander J30.81 and Vitamin D deficiency, unspecified E55.[address] [address] 12/28/2023 Dano Hermosillo Severe persistent asthma, uncomplicated J45.[address] [address] 01/11/2024 Dano Hermosillo Severe persistent asthma, uncomplicated J45.[address] [address] 02/01/2024 Dano Hermosillo Severe persistent asthma, uncomplicated J45.[address] [address] 02/20/2024 Akosua Joyce Severe persistent asthma, uncomplicated J45.50 ; Gastro-esophageal reflux disease without esophagitis K21.9 ; Allergic rhinitis due to animal (cat) (dog) hair and dander J30.81 ; Allergic rhinitis due to pollen J30.1 ; Other allergic rhinitis J30.89 ; Other chronic allergic conjunctivitis H10.45 ; Chronic sinusitis, unspecified J32.9 ; Vitamin D deficiency, unspecified E55.9 and Essential (primary) hypertension I10 [address] [address] 03/05/2024 Dano Hermosillo Severe persistent asthma, uncomplicated J45.[address] [address] 03/21/2024 Dano Hermosillo Severe persistent asthma, uncomplicated J45.[address] [address] 04/04/2024 Dano Hermosillo Severe persistent asthma, uncomplicated J45.[address] [address] 05/02/2024 Dano Hermosillo Severe persistent asthma, uncomplicated J45.[address] [address] 05/20/2024 Akosua Joyce Severe persistent asthma, uncomplicated J45.50 ; Gastro-esophageal reflux disease without esophagitis K21.9 ; Allergic rhinitis due to animal (cat) (dog) hair and dander J30.81 ; Allergic rhinitis due to pollen J30.1 ; Other allergic rhinitis J30.89 ; Other chronic allergic conjunctivitis H10.45 ; Chronic sinusitis, unspecified J32.9 ; Vitamin D deficiency, unspecified E55.9 and Essential (primary) hypertension I10 [facility] [address] [place] [address] 06/06/2024 Dano Hermosillo Severe persistent asthma, uncomplicated J45.50 [place] [address] 08/12/2024 Akosua Zoniasang Severe persistent asthma, uncomplicated J45.50 ; Gastro-esophageal reflux disease without esophagitis K21.9 ; Allergic rhinitis due to animal (cat) (dog) hair and dander J30.81 ; Allergic rhinitis due to pollen J30.1 ; Other allergic rhinitis J30.89 ; Other chronic allergic conjunctivitis H10.45 ; Chronic sinusitis, unspecified J32.9 ; Vitamin D deficiency, unspecified E55.9 and Essential (primary) hypertension I10 [facility] [address] [place], [place] [phone] 08/29/2024 Dano Hermosillo Severe persistent asthma, uncomplicated J45.50 [place] [phone] 09/23/2024 Akosua Hopeidalia Severe persistent asthma, uncomplicated J45.50 ; Gastro-esophageal reflux disease without esophagitis K21.9 ; Allergic rhinitis due to animal (cat) (dog) hair and dander J30.81 ; Allergic rhinitis due to pollen J30.1 ; Other allergic rhinitis J30.89 ; Other chronic allergic conjunctivitis H10.45 ; Chronic sinusitis, unspecified J32.9 ; Vitamin D deficiency, unspecified E55.9 and Essential (primary) hypertension I10 [facility] [address] [place] [address] 10/17/2024 Dano Hermosillo Severe persistent asthma, uncomplicated J45.50 [place] [phone] 10/31/2024 Dano Hermosillo Severe persistent asthma, uncomplicated J45.50 [facility] [place] [address] 01/02/2024 Akosua Joyce [address] [address] 01/04/2024 Akosua Joyce [address] [address] 08/05/2024 Akosua Joyce [address] [address] 09/04/2024 Akosua Joyce [address] [address] 09/09/2024 Akosua Joyce [address] [address] 09/18/2024 Akosua Joyce [address] [address] 11/05/2024 Akosua Joyce Severe persistent asthma, uncomplicated J45.[address] [address] 11/13/2024 Akosua Joyce Severe persistent asthma, uncomplicated J45.50 Assessments Encounter Date Diagnosis (ICD Code) Assessment Notes Treatment Notes Treatment Clinical Notes Section Notes 12/28/2023 Severe persistent asthma, uncomplicated (ICD-10 - J45.50) 01/11/2024 Severe persistent asthma, uncomplicated (ICD-10 - J45.50) 02/01/2024 Severe persistent asthma, uncomplicated (ICD-10 - J45.50) 02/20/2024 Gastro-esophageal reflux disease without esophagitis (ICD-10 - K21.9) As above with reflux symptoms likely triggering cough and thick mucus production. Recent EGD/colonoscopy with evidence of non-erosive GERD. - No excessive caffeine reported. - Still on PPI, Cathy feels her symptoms have improved significantly with tighter control of reflux. - Previously using Maalox now off, continue to follow closely with GI 03/05/2024 Severe persistent asthma, uncomplicated (ICD-10 - J45.50) 03/21/2024 Severe persistent asthma, uncomplicated (ICD-10 - J45.50) 04/04/2024 Severe persistent asthma, uncomplicated (ICD-10 - J45.50) 05/02/2024 Severe persistent asthma, uncomplicated (ICD-10 - J45.50) 02/20/2024 Severe persistent asthma, uncomplicated (ICD-10 - J45.50) Cathy returns today for Xolair dosing. We have consistently discussed compliance with q2 week dosing with Xolair. Last spirometry is comparable to prior report and looks fairly stable. Also with worsening GERD that has contributed to her symptoms. Recent GI EGD/colonoscopy showed non-erosive GERD. On Xopenex as albuterol causes tachycardia and urinary leakage. Previously interested in trial of Trelegy to reduce cost of medicine on Breo + Spiriva. She felt worse on Trelegy and stopped. We previously discussed switching to Tezspire at length. Cathy again wants to hold off on switching to Tezspire at this time. ACT is 19. Cathy endorses significant stress that has worsened lower airway symptoms, otherwise pleased with level of control. - Cathy will continue high-dose ICS/LABA. Will continue Xolair at this time. We have discussed switch to Tezspire at length. She wants to hold off at this time. If Cathy has an increase in symptoms or steroid requirement in the next few months, will pursue Tezspire approval. - Cathy is not a candidate for at-home administration of Xolair due to concern for the risk of a hypersensitivity reaction, as well as education requirement and compliancy with dosing. - Continue medications as listed above. Continue Levalbuterol, reports use once in the last 4 weeks. Also reports she stopped taking Singulair several months ago. - Return in 2 weeks for Xolair and we will see her back in 3 months for further evaluation and management. - Repeat spirometry shows normal FEV1, FVC and FEV%. Comparable to last report one year ago. - Dosing tolerated w/o issues. - AIE still UTD. - Return in two weeks for XOLAIR dosing and in 3 months for further evaluation and management 05/20/2024 Gastro-esophageal reflux disease without esophagitis (ICD-10 - K21.9) As above with reflux symptoms likely triggering cough and thick mucus production. Recent EGD/colonoscopy with evidence of non-erosive GERD. - No excessive caffeine reported. - Still on PPI, Cathy feels her symptoms have improved significantly with tighter control of reflux. - Previously using Maalox now off, continue to follow closely with GI 05/20/2024 Severe persistent asthma, uncomplicated (ICD-10 - J45.50) Cathy returns today for Xolair dosing. We have consistently discussed compliance with q2 week dosing with Xolair. Last spirometry is comparable to prior report and looks fairly stable. Also with worsening GERD that has contributed to her symptoms. Recent GI EGD/colonoscopy showed non-erosive GERD. On Xopenex as albuterol causes tachycardia and urinary leakage. Previously interested in trial of Trelegy to reduce cost of medicine on Breo + Spiriva. She felt worse on Trelegy and stopped. We previously discussed switching to Tezspire at length. Cathy again wants to hold off on switching to Tezspire at this time. ACT is 24. This month Cathy is pleased with level of control. - Cathy will continue high-dose ICS/LABA. Will continue Xolair at this time. We have discussed switch to Tezspire at length. She wants to hold off at this time. If Cathy has an increase in symptoms or steroid requirement in the next few months, will pursue Tezspire approval. - Cathy is not a candidate for at-home administration of Xolair due to concern for the risk of a hypersensitivity reaction, as well as education requirement and compliancy with dosing. - Continue medications as listed above. Continue Levalbuterol as-needed. Also reports she stopped taking Singulair several months ago. - Return in 2 weeks for Xolair and we will see her back in 3 months for further evaluation and management. - Repeat spirometry shows normal FEV1, FVC and FEV%. Comparable to last report one year ago. - Dosing tolerated w/o issues. - AIE still UTD. - Return in two weeks for XOLAIR dosing and in 3 months for further evaluation and management 06/06/2024 Severe persistent asthma, uncomplicated (ICD-10 - J45.50) 08/12/2024 Gastro-esophageal reflux disease without esophagitis (ICD-10 - K21.9) As above with reflux symptoms likely triggering cough and thick mucus production. Recent EGD/colonoscopy with evidence of non-erosive GERD. - No excessive caffeine reported. - Still on PPI, Cathy feels her symptoms have improved significantly with tighter control of reflux. - Previously using Maalox now off, continue to follow closely with GI 08/12/2024 Severe persistent asthma, uncomplicated (ICD-10 - J45.50) Cathy returns today for Xolair dosing. We have consistently discussed compliance with q2 week dosing with Xolair. She returns today nearly two months behind on dosing due to increased sciatica pain. Last spirometry is comparable to prior report and looks fairly stable. Also with worsening GERD that has contributed to her symptoms. Recent GI EGD/colonoscopy showed non-erosive GERD. On Xopenex as albuterol causes tachycardia and urinary leakage. Previously interested in trial of Trelegy to reduce cost of medicine on Breo + Spiriva. She felt worse on Trelegy and stopped. We previously discussed switching to Tezspire at length. Cathy again wants to hold off on switching to Tezspire at this time. Cathy returns with ACT of 20, admits to illness that caused increased cough and shortness of breath. Despite this, avoided hospitalization, antibiotics or steroids. - Cathy will continue high-dose ICS/LABA. Will continue Xolair at this time. We have discussed switch to Tezspire at length. She wants to hold off at this time. If Cathy has an increase in symptoms or steroid requirement in the next few months, will pursue Tezspire approval. - Cathy is not a candidate for at-home administration of Xolair due to concern for the risk of a hypersensitivity reaction, as well as education requirement and compliancy with dosing. - Continue medications as listed above. Continue Levalbuterol as-needed. Also reports she stopped taking Singulair several months ago. - Return in 2 weeks for Xolair and we will see her back in 2 months for further evaluation and management. - Repeat spirometry shows normal FEV1, FVC and FEV%. Comparable to last report one year ago. - Dosing tolerated w/o issues. - AIE still UTD. - Return in two weeks for XOLAIR dosing and in 2 months for further evaluation and management 08/29/2024 Severe persistent asthma, uncomplicated (ICD-10 - J45.50) 09/23/2024 Gastro-esophageal reflux disease without esophagitis (ICD-10 - K21.9) As above with reflux symptoms likely triggering cough and thick mucus production. Recent EGD/colonoscopy with evidence of non-erosive GERD. - No excessive caffeine reported. - Still on PPI, Cathy feels her symptoms have improved significantly with tighter control of reflux. - Previously using Maalox now off, continue to follow closely with GI 09/23/2024 Severe persistent asthma, uncomplicated (ICD-10 - J45.50) Cathy returns today for Xolair dosing. We have consistently discussed compliance with q2 week dosing with Xolair. Last spirometry is comparable to prior report and looks fairly stable. Also with worsening GERD that has contributed to her symptoms. Recent GI EGD/colonoscopy showed non-erosive GERD. On Xopenex as albuterol causes tachycardia and urinary leakage. Previously interested in trial of Trelegy to reduce cost of medicine on Breo + Spiriva. She felt worse on Trelegy and stopped. We previously discussed switching to Tezspire at length. Cathy again wants to hold off on switching to Tezspire at this time. Cathy returns with ACT of 20. No interval antibiotics or steroids. - Cathy will continue high-dose ICS/LABA. Will continue Xolair at this time. We have discussed switch to Tezspire at length. She wants to hold off at this time. If Catyh has an increase in symptoms or steroid requirement in the next few months, will pursue Tezspire approval. - Cathy is not a candidate for at-home administration of Xolair due to concern for the risk of a hypersensitivity reaction, as well as education requirement and compliancy with dosing. - Continue medications as listed above. Continue Levalbuterol as-needed. Also reports she stopped taking Singulair several months ago. - Repeat spirometry shows normal FEV1, FVC and FEV%. Comparable to last report one year ago. - Dosing tolerated w/o issues. - AIE still UTD. - Return in two weeks for XOLAIR dosing and in 2 months for further evaluation and management, and repeat spirometry 10/17/2024 Severe persistent asthma, uncomplicated (ICD-10 - J45.50) 10/31/2024 Severe persistent asthma, uncomplicated (ICD-10 - J45.50) 11/05/2024 Severe persistent asthma, uncomplicated (ICD-10 - J45.50) 11/13/2024 Severe persistent asthma, uncomplicated (ICD-10 - J45.50) 09/23/2024 Allergic rhinitis due to animal (cat) (dog) hair and dander (ICD-10 - J30.81) Sheila clearly suffers from atopic disease based upon her prior skin testing and history. Accordingly, we have encouraged compliance with her aggressive medication regimen, nasal washes and allergy-specific avoidance measures. She has been off SCIT since 07/04/16. She continues on Zyrtec, Flonase and Patanase and today reports increased nasal congestion and drainage. Despite this she expressed concerns as prior SCIT made her overall feel terrible with noted injection site pain that did not improve with time. Additionally, she reports feeling overwhelmed with current medical state and is having difficulty keeping track of all appointments. Patient is considering and wants to discuss further at follow-up. - Continue to monitor upper airway symptoms, she notes signifciant improvement with ipratopium bromide as-needed. Discussed that based on PI safety and efficacy has not been established with use > 3 weeks. Cathy voices understanding, wants to continue use. Currently using on a PRN basis. 08/12/2024 Allergic rhinitis due to animal (cat) (dog) hair and dander (ICD-10 - J30.81) Sheila clearly suffers from atopic disease based upon her prior skin testing and history. Accordingly, we have encouraged compliance with her aggressive medication regimen, nasal washes and allergy-specific avoidance measures. She has been off SCIT since 07/04/16. She continues on Zyrtec, Flonase and Patanase and today reports increased nasal congestion and drainage. Despite this she expressed concerns as prior SCIT made her overall feel terrible with noted injection site pain that did not improve with time. Additionally, she reports feeling overwhelmed with current medical state and is having difficulty keeping track of all appointments. Patient is considering and wants to discuss further at follow-up. - Continue to monitor upper airway symptoms, she notes signifciant improvement with ipratopium bromide as-needed. Discussed that based on PI safety and efficacy has not been established with use > 3 weeks. Cathy voices understanding, wants to continue use. Currently using on a PRN basis. 05/20/2024 Allergic rhinitis due to animal (cat) (dog) hair and dander (ICD-10 - J30.81) Sheila clearly suffers from atopic disease based upon her prior skin testing and history. Accordingly, we have encouraged compliance with her aggressive medication regimen, nasal washes and allergy-specific avoidance measures. She has been off SCIT since 07/04/16. She continues on Zyrtec, Flonase and Patanase and today reports increased nasal congestion and drainage. Despite this she expressed concerns as prior SCIT made her overall feel terrible with noted injection site pain that did not improve with time. Additionally, she reports feeling overwhelmed with current medical state and is having difficulty keeping track of all appointments. Patient is considering and wants to discuss further at follow-up. - Continue to monitor upper airway symptoms, she notes signifciant improvement with ipratopium bromide as-needed. Discussed that based on PI safety and efficacy has not been established with use > 3 weeks. Cathy voices understanding, wants to continue use. Currently using on a PRN basis. 02/20/2024 Allergic rhinitis due to animal (cat) (dog) hair and dander (ICD-10 - J30.81) Sheila clearly suffers from atopic disease based upon her prior skin testing and history. Accordingly, we have encouraged compliance with her aggressive medication regimen, nasal washes and allergy-specific avoidance measures. She has been off SCIT since 07/04/16. She continues on Zyrtec, Flonase and Patanase and today reports increased nasal congestion and drainage. Despite this she expressed concerns as prior SCIT made her overall feel terrible with noted injection site pain that did not improve with time. Additionally, she reports feeling overwhelmed with current medical state and is having difficulty keeping track of all appointments. Patient is considering and wants to discuss further at follow-up. - Continue to monitor upper airway symptoms, she notes signifciant improvement with ipratopium bromide as-needed. Discussed that based on PI safety and efficacy has not been established with use > 3 weeks. Cathy voices understanding, wants to continue use. 01/06/2024 Allergic rhinitis due to animal (cat) (dog) hair and dander (ICD-10 - J30.81) 02/20/2024 Allergic rhinitis due to pollen (ICD-10 - J30.1) Follow allergen avoidance, meds and consider restarting SCIT as an adjunctive treatment to current regimen if symptoms worsen 05/20/2024 Allergic rhinitis due to pollen (ICD-10 - J30.1) Follow allergen avoidance, meds and consider restarting SCIT as an adjunctive treatment to current regimen if symptoms worsen 08/12/2024 Allergic rhinitis due to pollen (ICD-10 - J30.1) Follow allergen avoidance, meds and consider restarting SCIT as an adjunctive treatment to current regimen if symptoms worsen 09/23/2024 Allergic rhinitis due to pollen (ICD-10 - J30.1) Follow allergen avoidance, meds and consider restarting SCIT as an adjunctive treatment to current regimen if symptoms worsen 09/23/2024 Other allergic rhinitis (ICD-10 - J30.89) Follow allergen avoidance, meds and consider restarting SCIT if symptoms worsen 08/12/2024 Other allergic rhinitis (ICD-10 - J30.89) Follow allergen avoidance, meds and consider restarting SCIT if symptoms worsen 05/20/2024 Other allergic rhinitis (ICD-10 - J30.89) Follow allergen avoidance, meds and consider restarting SCIT if symptoms worsen 02/20/2024 Other allergic rhinitis (ICD-10 - J30.89) Follow allergen avoidance, meds and consider restarting SCIT if symptoms worsen 05/20/2024 Other chronic allergic conjunctivitis (ICD-10 - H10.45) I encouraged allergy avoidance measures and meds as above. If symptoms persist, consider adding additional medications including intraocular antihistamine/mast cell stabilizer, PRN and consider restarting SCIT as an adjunctive measure if needed 02/20/2024 Other chronic allergic conjunctivitis (ICD-10 - H10.45) I encouraged allergy avoidance measures and meds as above. If symptoms persist, consider adding additional medications including intraocular antihistamine/mast cell stabilizer, PRN and consider restarting SCIT as an adjunctive measure if needed 08/12/2024 Other chronic allergic conjunctivitis (ICD-10 - H10.45) I encouraged allergy avoidance measures and meds as above. If symptoms persist, consider adding additional medications including intraocular antihistamine/mast cell stabilizer, PRN and consider restarting SCIT as an adjunctive measure if needed 09/23/2024 Other chronic allergic conjunctivitis (ICD-10 - H10.45) I encouraged allergy avoidance measures and meds as above. If symptoms persist, consider adding additional medications including intraocular antihistamine/mast cell stabilizer, PRN and consider restarting SCIT as an adjunctive measure if needed 09/23/2024 Chronic sinusitis, unspecified (ICD-10 - J32.9) Sheila reports historically having at least 2-3 sinus infections per year without prior sinus surgery or PI work-up. Additionally, reports she has had several viral URIs. Given recurrent infections, she meets the JMF criteria for modified PIDD workup. - Work-up ordered and showed inadequate protection against haemophilus influenzae. Borderline protection noted to s. pneumo with 16/23 protected. Cathy has gotten Pneumovax in the past, is unsure if she has gotten Prevnar-20. She is to contact [facility], where she gets hr vaccines, for vaccination record. Consider additional booster pending record review. - Cathy has since obtained boosters, repeat titers now show adequate protection to s. pneumo. H. influenzae titers remain inadequate, though did increase with HiB booster. Discussed obtaining additional booster, if HiB protection remains inadequate, consider SADNI. Cathy has yet to receive booster 05/20/2024 Chronic sinusitis, unspecified (ICD-10 - J32.9) Sheila reports historically having at least 2-3 sinus infections per year without prior sinus surgery or PI work-up. Additionally, reports she has had several viral URIs. Given recurrent infections, she meets the JMF criteria for modified PIDD workup. - Work-up ordered and showed inadequate protection against haemophilus influenzae. Borderline protection noted to s. pneumo with 16/23 protected. Cathy has gotten Pneumovax in the past, is unsure if she has gotten Prevnar-20. She is to contact [facility], where she gets hr vaccines, for vaccination record. Consider additional booster pending record review. - Cathy has since obtained boosters, repeat titers now show adequate protection to s. pneumo. H. influenzae titers remain inadequate, though did increase with HiB booster. Discussed obtaining additional booster, if HiB protection remains inadequate, consider SADNI. Cathy has yet to receive booster 08/12/2024 Chronic sinusitis, unspecified (ICD-10 - J32.9) Sheila reports historically having at least 2-3 sinus infections per year without prior sinus surgery or PI work-up. Additionally, reports she has had several viral URIs. Given recurrent infections, she meets the JMF criteria for modified PIDD workup. - Work-up ordered and showed inadequate protection against haemophilus influenzae. Borderline protection noted to s. pneumo with 16/23 protected. Cathy has gotten Pneumovax in the past, is unsure if she has gotten Prevnar-20. She is to contact [facility], where she gets hr vaccines, for vaccination record. Consider additional booster pending record review. - Cathy has since obtained boosters, repeat titers now show adequate protection to s. pneumo. H. influenzae titers remain inadequate, though did increase with HiB booster. Discussed obtaining additional booster, if HiB protection remains inadequate, consider SADNI. Cathy has yet to receive booster 02/20/2024 Chronic sinusitis, unspecified (ICD-10 - J32.9) Sheila reports historically having at least 2-3 sinus infections per year without prior sinus surgery or PI work-up. Additionally, reports she has had several viral URIs. Given recurrent infections, she meets the F criteria for modified PIDD workup. - Work-up ordered and showed inadequate protection against haemophilus influenzae. Borderline protection noted to s. pneumo with 16/23 protected. Cathy has gotten Pneumovax in the past, is unsure if she has gotten Prevnar-20. She is to contact [facility], where she gets hr vaccines, for vaccination record. Consider additional booster pending record review. - Cathy has since obtained boosters, repeat titers now show adequate protection to s. pneumo. H. influenzae titers remain inadequate, though did increase with HiB booster. Discussed obtaining additional booster, if HiB protection remains inadequate, consider SADNI. Cathy has yet to receive booster 01/06/2024 Vitamin D deficiency, unspecified (ICD-10 - E55.9) 02/20/2024 Vitamin D deficiency, unspecified (ICD-10 - E55.9) Normal vitamin D, followed by Rheumatology 05/20/2024 Vitamin D deficiency, unspecified (ICD-10 - E55.9) Normal vitamin D, followed by Rheumatology 09/23/2024 Vitamin D deficiency, unspecified (ICD-10 - E55.9) Normal vitamin D, followed by Rheumatology 08/12/2024 Vitamin D deficiency, unspecified (ICD-10 - E55.9) Normal vitamin D, followed by Rheumatology 09/23/2024 Essential (primary) hypertension (ICD-10 - I10) BP elevated today without symptoms of urgency or emergency. Continue serial checks with PCP. Try to avoid beta-blockers if possible given Xolair and associated anaphylaxis 08/12/2024 Essential (primary) hypertension (ICD-10 - I10) BP elevated today without symptoms of urgency or emergency. Continue serial checks with PCP. Try to avoid beta-blockers if possible given Xolair and associated anaphylaxis 05/20/2024 Essential (primary) hypertension (ICD-10 - I10) BP elevated today without symptoms of urgency or emergency. Continue serial checks with PCP. Try to avoid beta-blockers if possible given Xolair and associated anaphylaxis 02/20/2024 Essential (primary) hypertension (ICD-10 - I10) BP normal today. Continue serial checks with PCP. Try to avoid beta-blockers if possible given Xolair and associated anaphylaxis 09/17/2024 Other 02/20/2024 Other 05/20/2024 Other 08/12/2024 Other 09/23/2024 Other Plan Of Treatment Pending Test Test Name Order Date -Haemophilus influenzae B IgG 10/31/2023 -Pneumococcal Ab (23 Serotype) 4 COVID-19 TESTING (Hospital-based PCR) Insurance Providers Payer Name Payer Address Payer Phone Subscriber Number Group Number Insured Name Patient Relationship to Insured Coverage Start Date Coverage End Date [employer] [address] [address] [place] [address] [id number] Sheila Daily Self - patient is the insured 5 Medical (General) History Medical History History ICD Code Severe persistent asthma, uncomplicated Allergic rhinitis due to pollen Allergic rhinitis due to animal (cat) (d og) hair and dander Other allergic rhinitis Other chronic allergic conjunctivitis Anaphylactic shock, unspecified, subsequ ent encounter Personal history of anaphylaxis COPD [Chronic obstructive pulmonary dise ase] Depression with anxiety Fibromyalgia Obstructive sleep apnea Hypoxia Narcolepsy Celiac Disease Surgical History Surgery Date(Month/Year) Cholecystectomy 1967 Partial Hysterectomy 1977 [facility] Bariatric Reconstruction 2007 Hospitalization History Reason Date(Month/Year) See above surgical history
--- OUTSIDE RECORDS SUMMARY | 2024-12-17 20:55 | XMS_ITS | Patient Health Record ---
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 [facility] [address] Notes/Report: eGFR 83 >=60 mL/min/1.73 m2 Interpretive Data Reference Interval Normal >/= 90 mL/min/1.73m2 Mildly decreased* 60 - 89 mL/min/1.73m2 Mildly to moderately decreased 45 - 59 mL/min/1.73m2 Moderately to severely decreased 30 - 44 mL/min/1.73m2 Severely decreased 15 - 29 mL/min/1.73m2 Kidney Failure < 15 mL/min/1.73m2 *Relative to young adult level Estimated glomerular filtration rate is determined by the 2020 CKD-EPI equation recommended by the National Kidney Foundation (A Unifying Approach to GFR Estimation: Recommendations of the NKF-ASK Task Force on Reassessing the Inclusion of Race in Diagnosing Kidney Disease, JASN 2020). The CKD-EPI equation should not be used for patients with unstable renal function and has not been validated in children and those over 70. Current interpretive data was last reviewed 2021. UA Micro (All Sites) Reviewed date:04/25/2024 04:38:07 PM Interpretation: [facility] , [address] [place] [address]. [facility] [address] Notes/Report: WBC, Ur 21-50 0-5 /HPF RBC, Ur 0-2 0-2 /HPF Epithl Squam, Ur 1-5 0-5 /HPF Culture reflex comment See Below Reflex to urine cult ure will be performed. Culture, Urine-cvs Reviewed date:04/27/2024 11:09:19 AM Interpretation: Performing Lab:[facility] , [address] [place] [address]. [facility] [address] Notes/Report: Specimen source: UR ORDER COMMENTS Urine culture reflexed based upon urinalysis results. C URINE SEE BELOW C URINE Final Report C URINE Greater than or equa l to 100,000 colonies/ml of Escherichia coli C URINE Susceptibility Testing C URINE Organism 1 C URINE Escherichia coli C URINE Ampicillin with Sulbactam S C URINE Cefazolin S C URINE Ciprofloxacin S C URINE Gentamicin S C URINE Levofloxacin S C URINE Meropenem S C URINE Nitrofurantoin S C URINE Piperacillin/Tazobac heredia S C URINE Trimethoprim with Sulfamethoxazole S Differential Automated Reviewed date:04/25/2024 04:38:06 PM Interpretation: Performing Lab:[facility] , [address] [place] [address]. [facility] [address] Notes/Report: Neut Abs 5.6 1.5-6.5 K/cumm ImmGran Abs 0.0 0.0-0.1 K/cumm Lymphocyte Abs 1.7 0.8-3.3 K/cumm Guadalupe Abs 0.9 0.2-0.8 K/cumm Eos Abs 0.5 0.0-0.5 K/cumm Baso Abs 0.1 0.0-0.1 K/cumm Neut Pct 63.3 Interpretive Data Percent cell count reference ranges are not reported, since discordance with absolute values may lead to misinterpretation of CBC data. Current Interpretive Data was last revised on 2017. ImmGran Pct 0.5 Interpretive Data Percent cell count reference ranges are not reported, since discordance with absolute values may lead to misinterpretation of CBC data. Current Interpretive Data was last revised on 2017. Lymph Pct 19.4 Interpretive Data Percent cell count reference ranges are not reported, since discordance with absolute values may lead to misinterpretation of CBC data. Current Interpretive Data was last revised on 2017. Guadalupe Pct 10.3 Interpretive Data Percent cell count reference ranges are not reported, since discordance with absolute values may lead to misinterpretation of CBC data. Current Interpretive Data was last revised on 2017. Eos Pct 5.5 Interpretive Data Percent cell count reference ranges are not reported, since discordance with absolute values may lead to misinterpretation of CBC data. Current Interpretive Data was last revised on 2017. Baso Pct 1.0 Interpretive Data Percent cell count reference ranges are not reported, since discordance with absolute values may lead to misinterpretation of CBC data. Current Interpretive Data was last revised on 2017. CBC W/DIFF Reviewed date:11/08/2024 08:13:09 AM Interpretation:Lab Result Generalized Performing Lab:[facility], [address] [place] [address], [address] Notes/Report: WBC 9.8 3.5-10.5 10'3/uL RBC 4.26 (Based on documented legal sex) 3.80-5.20 10'6/uL HGB 11.3 (Based on documented legal sex) 11.6-15.4 g/dL HCT 37.7 (Based on documented legal sex) 34.0-45.0 % MCV 88.5 80.0-99.0 fL MCH 26.5 27.0-34.0 pg MCHC 30.0 32.0-35.5 g/dL RDW 18.0 11.0-15.0 % PLT 395 150-400 10'3/uL MPV 9.9 8.8-12.1 fL Neutrophils 64.9 34.0-73.0 % Lymphocytes 23.4 15.0-50.0 % Monocytes 8.4 1.0-15.0 % Eosinophils 2.2 0.0-8.0 % Basophils 0.8 0.0-2.0 % Immature Granulocytes 0.3 No defined reference range % Immature Granulocytes (IG) represents automated enumeration of Metamyelocytes, Myelocytes and Promyelocytes when IG is < 5%. Blasts are not included in IG and reported separately if present. Absolute Neutrophils 6.4 1.5-8.0 10'3/uL Absolute Lymphocytes 2.3 1.0-4.0 10'3/uL Absolute Monocytes 0.8 0.2-1.0 10'3/uL Absolute Eosinophils 0.2 0.0-0.6 10'3/uL Absolute Basophils 0.1 0.0-0.3 10'3/uL Absolute Immature Granulocytes 0.0 0.00-0.10 10'3/uL Reference ranges for nonbinary/intersex or unspecified gender patients have not been established. Please refer to the following table for ranges established for cisgender patients and evaluate in the clinical context of the individual patient: [email or web address] CMP(COMPREHENSIVE METABOLIC PANEL) Reviewed date:11/08/2024 08:13:09 AM Interpretation:Lab Result Generalized Performing Lab:[facility], [place], [address] Notes/Report: Sodium 136 133-146 mmol/L Potassium 5.0 3.5-5.1 mmol/L Chloride 100 98-107 mmol/L Carbon Dioxide 32 21-31 mmol/L Anion Gap 4 4-13 mmol/L Blood Urea Nitrogen 17 7-25 mg/dL Creatinine 0.78 0.60-1.30 mg/dL eGFRcr (CKD-EPI 2020) 79 >=60 mL/min/1.73 m2 Calcium 10.4 8.3-10.5 mg/dL Glucose 100 70-100 mg/dL Protein, Total 6.8 6.4-8.3 g/dL Albumin 4.2 3.5-5.0 g/dL ALT 22 9-43 units/L Alkaline Phosphatase 69 34-104 units/L AST 20 13-39 units/L Bilirubin, Total 0.4 0.2-1.2 mg/dL CBC W/DIFF Reviewed date:08/07/2024 03:36:05 PM Interpretation:Lab Result Generalized Performing Lab:[facility], [place], [address] Notes/Report: WBC 11.3 3.5-10.5 10'3/uL RBC 4.48 (Based on documented legal sex) 3.80-5.20 10'6/uL HGB 12.2 (Based on documented legal sex) 11.6-15.4 g/dL HCT 38.9 (Based on documented legal sex) 34.0-45.0 % MCV 86.8 80.0-99.0 fL MCH 27.2 27.0-34.0 pg MCHC 31.4 32.0-35.5 g/dL RDW 18.3 11.0-15.0 % PLT 472 150-400 10'3/uL MPV 9.4 8.8-12.1 fL Neutrophils 63.2 34.0-73.0 % Lymphocytes 24.3 15.0-50.0 % Monocytes 8.8 1.0-15.0 % Eosinophils 1.6 0.0-8.0 % Basophils 1.1 0.0-2.0 % Immature Granulocytes 1.0 No defined reference range % Immature Granulocytes (IG) represents automated enumeration of Metamyelocytes, Myelocytes and Promyelocytes when IG is < 5%. Blasts are not included in IG and reported separately if present. Absolute Neutrophils 7.2 1.5-8.0 10'3/uL Absolute Lymphocytes 2.8 1.0-4.0 10'3/uL Absolute Monocytes 1.0 0.2-1.0 10'3/uL Absolute Eosinophils 0.2 0.0-0.6 10'3/uL Absolute Basophils 0.1 0.0-0.3 10'3/uL Absolute Immature Granulocytes 0.1 0.00-0.10 10'3/uL Reference ranges for nonbinary/intersex or unspecified gender patients have not been established. Please refer to the following table for ranges established for cisgender patients and evaluate in the clinical context of the individual patient: [email or web address] CMP(COMPREHENSIVE METABOLIC PANEL) Reviewed date:08/07/2024 03:36:05 PM Interpretation:Lab Result Generalized Performing Lab:[facility], [address] [facility], [place], [address] Notes/Report: Sodium 136 133-146 mmol/L Potassium 4.6 3.5-5.1 mmol/L Chloride 101 98-107 mmol/L Carbon Dioxide 28 21-31 mmol/L Anion Gap 7 4-13 mmol/L Blood Urea Nitrogen 21 7-25 mg/dL Creatinine 0.79 0.60-1.30 mg/dL eGFRcr (CKD-EPI 2020) 78 >=60 mL/min/1.73 m2 Calcium 10.4 8.3-10.5 mg/dL Glucose 106 70-100 mg/dL Protein, Total 6.6 6.4-8.3 g/dL Albumin 4.4 3.5-5.0 g/dL ALT 34 9-43 units/L Alkaline Phosphatase 68 34-104 units/L AST 26 13-39 units/L Bilirubin, Total 0.3 0.2-1.2 mg/dL ALLISON Screen Reviewed date:04/26/2024 03:11:38 PM Interpretation: Performing Lab:[facility] , [address] [place] [address]. [facility] [address] Notes/Report: ALLISON Screen Negative Negative Interpretive Data Positive Screens will be reflexed to specific testing for Antibodies against the following antigens: [place]-1 Ab, AN EMPLOYEE SPONSOR OR ADVOCATE AND Ab, Scl-70 Ab, Carmona Ab, SS-A/Ro Ab, and SS-B/La Ab. Further testing for dsDNA, Centromere, or Ribosomal P antibodies is suggested in patient with a positive screen and negative specific antibodies. Current interpretive data was last revised on 2023. DS DNA Reviewed date:04/26/2024 03:11:38 PM Interpretation: Performing Lab:[facility] , [facility]. [place] [address] Notes/Report: Double Stranded DNA, Tashi 1.0 <=4.0 IUnits/mL Interpretive Data Negative: < or = 4 IUnits/mL Indeterminate: 5 - 9 IUnits/mL Positive: > or = 10 IUnits/mL Current interpretive data was last revised on 2016. UA, reflex Micro to Culture Reviewed date:04/25/2024 04:38:07 PM Interpretation: Performing Lab:[facility] , [facility]. [place] [address] Notes/Report: Color, Ur Yellow Yellow Clarity, Ur Clear Clear Spec Grav, Ur 1.008 1.003-1.030 pH, Ur 6.5 Interpretive Data ?Urine pH is affected by diet, medications, systemic acid-base disturbances, and renal tubular function. pH may affect urinary stone formation. For example, urine pH below 6.0 may help reduce the tendency for calcium phosphate stones and pH greater than 6.0 may reduce the tendency for uric acid stone formation. Source: [facility] Quip Current Interpretive Data was last revised on 2017 Protein, Ur Ql Negative Negative Glucose, Ur Ql Negative Negative Ketones, Ur Negative Negative Bilirubin, Ur Negative Negative Blood, Ur Negative Negative Urobilinogen, Ur <2.0 <2.0 mg/dL Nitrite, Ur Positive Negative Leukocyte Esterase, Ur 4+ Negative UA reflex comment See Below Reflex to microscopic UA will be performed. SSB Ab Reviewed date:04/26/2024 11:50:43 AM Interpretation: Performing Lab:[facility] , [facility]. [facility] [address] Notes/Report: SS B Antibody <0.2 <=0.9 Ab Index Interpretive Data Negative: < 1.0 Ab Index Positive: > or = 1.0 Ab Index Current interpretive data was last revised on 2016. SSA Ab Reviewed date:04/26/2024 11:50:43 AM Interpretation: Performing Lab:[facility] , [facility] [place] [facility]. [facility] [address] Notes/Report: SS A Antibody <0.2 <=0.9 Ab Index Interpretive Data Negative: < 1.0 Ab Index Positive: > or = 1.0 Ab Index Current interpretive data was last revised on 2016. Carmona Ab. Reviewed date:04/26/2024 11:50:42 AM Interpretation: Performing Lab:[facility] , [facility]. [facility] [address] Notes/Report: Carmona Antibody <0.2 <=0.9 Ab Index Interpretive Data Negative: < 1.0 Ab Index Positive: > or = 1.0 Ab Index Current interpretive data was last revised on 2016. Sed Rate Reviewed date:04/25/2024 04:46:37 PM Interpretation: Performing Lab:[facility] , [facility]. [facility] [address] Notes/Report: ESR 10 1-30 mm/hr SCL 70 Antibodies Reviewed date:04/26/2024 11:50:42 AM Interpretation: Performing Lab:[facility] , [facility]. [facility] [address] Notes/Report: Scl 70 Ab, IgG <0.2 <=0.9 Ab Index Interpretive Data Negative: < 1.0 Ab Index Positive: > or = 1.0 Ab Index Current interpretive data was last revised on 2016. Ribonuclear Protein (AN EMPLOYEE SPONSOR OR ADVOCATE AND) Ab Reviewed date:04/26/2024 11:50:42 AM Interpretation: Performing Lab:[facility] , [address] [facility]. [facility] [address] Notes/Report: AN EMPLOYEE SPONSOR OR ADVOCATE AND Antibody <0.2 <=0.9 Ab Index Interpretive Data Negative: < 1.0 Ab Index Positive: > or = 1.0 Ab Index Current interpretive data was last revised on 2016. Rheumatoid Factor Reviewed date:04/25/2024 04:42:28 PM Interpretation: Performing Lab:[facility] , [address] [place] [address]. [facility] [address] Notes/Report: RF, Tashi 10 <=15 IUnits/mL Hep C AB Reviewed date:04/25/2024 04:38:07 PM Interpretation: Performing Lab:[facility] , [address] [place] [address]. [facility] [address] Notes/Report: Hepatitis C Antibody Nonreactive Nonreactive Interpretive Data Nonreactive: Antibodies to HCV not detected. Does NOT exclude the possibility of recent exposure to HCV. Equivocal: Equivocal for HCV antibodies. Supplemental molecular testing will be automatically performed to determine infection status in accordance with current CDC screening recommendations. Reactive: Positive for HCV antibodies. This may represent current or past HCV infection. Supplemental molecular testing will be automatically performed to determine current infection status in accordance with current CDC screening recommendations. Interpretive data was last revised on 2019. Hep B surf AG Reviewed date:04/25/2024 04:38:07 PM Interpretation: Performing Lab:[facility] , [facility]. [facility] [address] Notes/Report: Hepatitis B Surface Antigen Nonreactive Nonreactive G6PD Ql Reviewed date:04/26/2024 07:43:06 AM Interpretation: Performing Lab:[facility] , [facility]. [facility] [address] Notes/Report: G6PD, Qual Normal Normal Interp data: G6PD activity should be interpreted in the context of a patient's hematocrit. Hematocrit < 20% may lead to a falsely deficient result, while hematocrit > 50% may lead to a falsely normal result. Current interpretive data was last revised on 2019. Testing performed by: [facility], [address] [place]., [address] Creatine Kinase Reviewed date:04/25/2024 04:42:28 PM Interpretation: Performing Lab:[facility] , [address] [facility]. [place] [address] Notes/Report: Total CK 81 30-200 Units/L Comprehensive metabolic pane l (CMP) Reviewed date:04/25/2024 04:42:05 PM Interpretation: Performing Lab:[facility] , [address] [facility] [place] [address] Notes/Report: Sodium 140 135-145 mmol/L Plasma Potassium 4.1 3.3-4.9 mmol/L Chloride 101 97-110 mmol/L Total CO2 27 22-32 mmol/L Anion Gap 12 2-15 mmol/L BUN 13 6-25 mg/dL Creatinine 0.75 0.60-1.10 mg/dL Glucose 84 70-199 mg/dL Interpretive Data Fasting glucose >/= 126 mg/dl is diagnostic for diabetes. Fasting is defined as no caloric intake for at least 8 hours. Fasting glucose between 100 mg/dl to 125 mg/dl is diagnostic of prediabetes. In a patient with classic symptoms of hyperglycemia or hyperglycemic crisis, a random glucose >/= 200 mg/dl is diagnostic for diabetes. In the absence of unequivocal hyperglycemia, results should be confirmed by repeat testing. The classification and Diagnosis of Diabetes Diabetes Care 2021; 46: S19-S40. Current interpretive data was last revised 2022. Total Calcium 10.4 8.5-10.3 mg/dL Total Bilirubin 0.2 0.1-1.2 mg/dL Plasma Total Protein 7.1 6.5-8.5 g/dL Albumin 4.3 3.5-5.0 g/dL Alkaline Phosphatase 81 40-130 Units/L ALT 22 7-45 Units/L AST 19 10-45 Units/L Complement C4 Reviewed date:04/25/2024 04:38:07 PM Interpretation: Performing Lab:[facility] , [address] [place] [address] Notes/Report: Complement, C4 18 10-40 mg/dL Complement C3 Reviewed date:04/25/2024 04:38:07 PM Interpretation: Performing Lab:[facility] , [address] [place], [place] [id number] Notes/Report: Complement, C3 148 90-180 mg/dL CBC w auto diff Reviewed date:04/25/2024 04:38:07 PM Interpretation: Performing Lab:[facility] , [address] [place], [place] [id number] Notes/Report: WBC 8.8 3.8-9.9 K/cumm Hgb 11.4 11.9-15.5 g/dL Hct 37.5 35.6-45.5 % Platelet Ct 374 150-400 K/cumm MPV 9.1 9.1-12.3 fL RBC 4.26 3.90-5.20 M/cumm MCV 88.0 81.3-96.4 fL MCH 26.8 27.1-33.3 pg MCHC 30.4 32.3-35.7 g/dL RDW CV 17.4 11.1-14.9 % RDW SD 55.1 35.7-48.1 fL NRBC Abs Auto 0.00 0.00-0.01 K/cumm C Reactive Protein Reviewed date:04/25/2024 04:42:28 PM Interpretation: Performing Lab:[facility] , [address] [place], [place] [id number] Notes/Report: C-Reactive Protein <3.0 <=10.0 mg/L Anti-CCP (Cyclic Citrullinat ed Peptide Ab) Reviewed date:04/26/2024 11:50:42 AM Interpretation: Performing Lab:[facility] , [address] [place], [place] [id number] Notes/Report: CCP Ab <0.5 <=2.9 units/mL Interpretive data Negative: <3 units/mL Positive: > or equal to 3 units/mL Current interpretive data was last revised on 2016. GUS reflex titer pattern ALLISON + dsDNA Reviewed date:04/26/2024 03:11:38 PM Interpretation: Performing Lab:[facility] , [address] [facility]. [facility] [address] Notes/Report: GUS, Qual Positive 1:160 Interpretive Data Normal range for GUS Qualitative Antibody = Negative. 1. GUS is performed using indirect immunofluorescence against HEp-2 cells 2. GUS titers are performed on all positive qualitative results. 3. A significantly positive GUS result is defined as a positive nuclear fluorescence at a titer of 1:80 or greater. 4. 15% of normal people above age 65 have significantly positive GUS results. 5% or less of normal people age 65 or under have significantly positive GUS results. Current interpretive data was last revised on 2020. Testing performed by: [facility], [address] [place]., [address] GUS, Tashi 1:160 Testing performed by: [facility], [address] [place]., [address] GUS Pattern 1 Homogeneous Testing performed by: [facility], [address] [place] [address], [address] Reason For Referral No Information Medications Medication SIG (Take, Route, Frequency, Duration) Notes Start Date End Date Status Levalbuterol Tartrate 45 MCG/ACT 1 puff as needed Inhalation every 6 hrs Active hydrOXYzine HCl 10 MG 1 tablet as needed Orally twice a day for 30 day(s) Active Fluticasone Propionate 50 MCG/ACT 1 spray in each nostril Nasally Once a day for 30 day(s) Active Esomeprazole Magnesium 40 MG as directed Orally Active Ibuprofen 600 MG 1 tablet with food o r milk as needed Orally once a day Active ZyrTEC 10 MG 1 tablet Orally Once a day for 30 day(s) Active Aleve 220 MG 1-2 tablets prn Orally every 12 hrs Active Methotrexate Sodium 2.5 MG 9 Orally once a week for 90 days Active Olopatadine HCl 0.6 % 2 sprays in each nostril Nasally Twice a day for 30 day(s) Active DULoxetine HCl 60 MG 1 capsule Orally twice a day for 90 days Active Breo Ellipta 200-25 MCG/ACT 1 puff Inhal ation Once a day Active Folic Acid 1 MG 1 tablet Orally Once a day for 90 days Active Spiriva Respimat 2.5 MCG/ACT 2 puffs Inh alation Once a day Active Vitamin D3 125 MCG (5000 UT) 1 capsule O rally Once a day for 30 day(s) Active tiZANidine HCl 4 MG TAKE 1 TABLET BY MOUTH TWICE A DAY NEEDED for 90 Active Vitamin B12 Active Methylphenidate HCl ER 36 MG 1 tablet in the morning Orally Once a day Active busPIRone HCl 15 MG 1 tablet Orally Twic e a day Active Hydroxychloroquine Sulfate 200 MG 1 Orally twice a day for 90 days 02/11/2025 Active oxyBUTYnin Chloride 5 MG 1 tablet Orally twice a day for 30 day(s) Active Social History Tobacco Use: Social History Observation Description Date Details (start date - stop date) Former Smoker NA - NA Household Question Answer Notes Marital status: Number of children in household: 0 Tobacco Control (Standard) Question Answer Notes Tobacco use: Former smoker How long has it been since you last smoked? Grea ter than 10 years Problems Problem Type SNOMED Code ICD Code Onset Dates Problem Status W/U Status Risk Notes Problem 498991096 Fibromyalgia (M79.7) Active confirmed Problem 129562197 Connective tissu e disease (M35.9) Active confirmed Vital Signs Heart Rate 84 /min 11/07/2024 Temperature 98.2 degrees Fahrenheit 11/07/2024 Height-cm 162.56 cm 11/07/2024 Blood pressure diastolic 74 mm Hg 11/07/2024 Oximetry 95 % 11/07/2024 Weight-kg 102.92 kg 11/07/2024 Height 64 in 11/07/2024 Blood pressure systolic 124 mm Hg 11/07/2024 Weight 226.9 lbs 11/07/2024 BMI 38.94 kg/m2 11/07/2024 Encounters Encounter Location Date Provider Diagnosis [facility] [address] [place] [address] 04/25/2024 Adri Du Pain in unspecified joint M25.50 ; Connective tissue disease M35.9 and Fibromyalgia M79.7 [facility] [address] [place] [address] 05/13/2024 Adri Du Pain in unspecified joint M25.50 ; Connective tissue disease M35.9 ; Fibromyalgia M79.7 and Abnormal urinalysis R82.90 [facility] [address] [place] [address] 08/06/2024 Adri Du Pain in unspecified joint M25.50 ; Connective tissue disease M35.9 ; Fibromyalgia M79.7 and Abnormal urinalysis R82.90 [facility] [address] [place] [address] 11/07/2024 Adri Du Pain in unspecified joint M25.50 ; Connective tissue disease M35.9 ; Fibromyalgia M79.7 and Abnormal urinalysis R82.90 [facility] [address] [place] [address] [facility] [address] [place] [address] 05/03/2024 [facility] [address] [place] [address] [facility] [address] [place] [address] 06/03/2024 [facility] [address] [place] [address] 08/07/2024 Adri Du Connective tissue disease M35.9 [facility] [address] [place] [address] 11/13[facility]20[facility] [address] [place] [address] 11/13/2024 Adri Stringer Assessments Encounter Date Diagnosis (ICD Code) Assessment Notes Treatment Notes Treatment Clinical Notes Section Notes 04/25/2024 Connective tissue disease (ICD-10 - M35.9) 73 year old female with fibromyalgia and connective tissue disease by history. She has mild synovitis on examination. She has been taking plaquenil, methtorexate and cymbalta. Labs will be ordered. Xrays of the hands will be ordered. Follow up visit will be scheduled. Thank you for referring this patient. cc Dr. Jackie Rizvi 05/13/2024 Pain in unspecified joint (ICD-10 - M25.50) continue MTX and plaquenil, add tizanidine, order urine culture, order mailed to her, return in 3 months 04/25/2024 Pain in unspecified joint (ICD-10 - M25.50) 73 year old female with fibromyalgia and connective tissue disease by history. She has mild synovitis on examination. She has been taking plaquenil, methtorexate and cymbalta. Labs will be ordered. Xrays of the hands will be ordered. Follow up visit will be scheduled. Thank you for referring this patient. cc Dr. Jackie Rizvi 08/06/2024 Pain in unspecified joint (ICD-10 - M25.50) clinicaly stable, continue MTX, plaquenil, cymbalta and tizanidine. labs today, return in 3 months 08/07/2024 Connective tissue disease (ICD-10 - M35.9) 11/07/2024 Pain in unspecified joint (ICD-10 - M25.50) stable for the most part, decrease MTX to 22.5mg/wk, , continue plaquenil, cymbalta and tizanidine. labs today, return in 3 months 08/06/2024 Connective tissue disease (ICD-10 - M35.9) clinicaly stable, continue MTX, plaquenil, cymbalta and tizanidine. labs today, return in 3 months 11/07/2024 Connective tissue disease (ICD-10 - M35.9) stable for the most part, decrease MTX to 22.5mg/wk, , continue plaquenil, cymbalta and tizanidine. labs today, return in 3 months 04/25/2024 Fibromyalgia (ICD-10 - M79.7) 73 year old female with fibromyalgia and connective tissue disease by history. She has mild synovitis on examination. She has been taking plaquenil, methtorexate and cymbalta. Labs will be ordered. Xrays of the hands will be ordered. Follow up visit will be scheduled. Thank you for referring this patient. cc Dr. Jackie Rizvi 05/13/2024 Fibromyalgia (ICD-10 - M79.7) continue MTX an d plaquenil, add tizanidine, order urine culture, order mailed to her, return in 3 months 05/13/2024 Connective tissue disease (ICD-10 - M35.9) continue MTX an d plaquenil, add tizanidine, order urine culture, order mailed to her, return in 3 months 05/13/2024 Abnormal urinalysis (ICD-10 - R82.90) continue MTX and plaquenil, add tizanidine, order urine culture, order mailed to her, return in 3 months 08/06/2024 Fibromyalgia (ICD-10 - M79.7) clinicaly stable, continue MTX, plaquenil, cymbalta and tizanidine. labs today, return in 3 months 11/07/2024 Fibromyalgia (ICD-10 - M79.7) stable for the most part, decrease MTX to 22.5mg/wk, , continue plaquenil, cymbalta and tizanidine. labs today, return in 3 months 08/06/2024 Abnormal urinalysis (ICD-10 - R82.90) clinicaly stable, continue MTX, plaquenil, cymbalta and tizanidine. labs today, return in 3 months 11/07/2024 Abnormal urinalysis (ICD-10 - R82.90) stable for the most part, decrease MTX to 22.5mg/wk, , continue plaquenil, cymbalta and tizanidine. labs today, return in 3 months Plan Of Treatment Pending Test Test Name Order Date X ray : Hands, bilateral 04/25/2024 CULTURE, URINE, ROUTINE (395) 05/13/2024 Next Appt Details Provider Name:Adri Stringer, 02/11 01:15:00 PM, [address], [place], [address], Insurance Providers Payer Name Payer Address Payer Phone Subscriber Number Group Number Insured Name Patient Relationship to Insured Coverage Start Date Coverage End Date [facility] Medicare Advantage [facility] [address] [address] [place] [address] [phone] [id number] Sheila Daily Self - patient is the insured Medical (General) History Medical History History ICD Code undifferentiated connective tissue disease, +GUS, COPD, sleep apnea, osteoarthritis, cataract, concussion, TMJ Surgical History Surgery Date(Month/Year) cholecystectomy, hysterectomy, bariatric surgery
--- OUTSIDE RECORDS SUMMARY | 2024-12-17 20:55 | XMS_ITS ---
Author Organization [facility] misha Address [address] [facility] [address] [place] [address] Care Team Providers Care Supervisor Bonding Name Role Phone Jackie Rizvi MD Primary Care Provider Karleymallory Adri Turpin Unavailable [phone] Allergies Allergen (clinical drug ingredient) Drug/Non Drug Allergy documented on EMR Reaction Allergy Type Onset Date Status Adhesive Unknown Allergy Active Non-steroidal anti-inflammatory agent (FN) NSAIDs abdominal pain Drug Allergy Active Results Component Value Reference Range Notes CMP(COMPREHENSIVE METABOLIC PANEL) Reviewed date:11/08/2024 08:13:09 AM Interpretation:Lab Result Generalized Performing Lab:[facility], [address] [place], [address] Notes/Report: Sodium 136 133-146 mmol/L Potassium 5.0 [...] Total 0.4 0.2-1.2 mg/dL CBC W/DIFF Reviewed date:11/08/2024 08:13:09 AM Interpretation:Lab Result Generalized Performing Lab:[facility], [address] [place], [address] Notes/Report: WBC 9.8 3.5-10.5 10'3/uL RBC 4.26 (Based on docume nted legal sex) 3.80-5.20 10'6/uL HGB 11.3 (Based on docume nted legal sex) 11.6-15.4 g/dL HCT 37.7 (Based on docume nted legal sex) 34.0-45.0 % MCV 88.5 80.0-99.0 [...] the clinical context of the individual patient: https://labhandbook.ks.org/ genderx REASON FOR VISIT yd/3 month follow up/flc, connective tissue disease, referred by Dr. Jackie Rizvi Medications Medication SIG (Take, Route, Frequency, Duration) Notes Start Date End Date Status hydrOXYzine HCl 10 MG 1 tablet as needed Orally twice a day for 30 day(s) Active Esomeprazole Magnesium 40 MG as directed Orally Active ZyrTEC 10 MG 1 tablet Orally Once a day for 30 day(s) Active Olopatadine HCl 0.6 % 2 sprays in each nostril Nasally Twice a day for 30 day(s) Active Breo Ellipta 200-25 MCG/ACT 1 puff Inhal ation Once a day Active Methotrexate Sodium 2.5 MG 9 Orally once a week for 90 days Active DULoxetine HCl 60 MG 1 capsule Orally tw ice a day for 90 days Active Folic Acid 1 MG 1 tablet Orally Once a day for 90 days Active tiZANidine HCl 4 MG TAKE 1 TABLET BY [facility] TWICE A DAY NEEDED for 90 Active Methylphenidate HCl ER 36 MG 1 tablet in the morning Orally Once a day Active Levalbuterol Tartrate 45 MCG/ACT 1 puff as needed Inhalation every 6 hrs Active Fluticasone Propionate 50 MCG/ACT 1 spray in each nostril Nasally Once a day for 30 day(s) Active Ibuprofen 600 MG 1 tablet with food o r milk as needed Orally once a day Active Aleve 220 MG 1-2 tablets prn Oral ly every 12 hrs Active oxyBUTYnin Chloride 5 MG 1 tablet Orally twice a day for 30 day(s) Active Spiriva Respimat 2.5 MCG/ACT 2 puffs Inh alation Once a day Active Vitamin D3 125 MCG (5000 UT) 1 capsule O rally Once a day for 30 day(s) Active Vitamin B12 Active busPIRone HCl 15 MG 1 tablet Orally Twic e a day Active Social History Tobacco Use: Social History Observation Description Date Details (start date - stop date) Former Smoker NA - NA Household Question Answer Notes Marital status: Number of children in household: 0 Tobacco Control (Standard) Question Answer Notes Tobacco use: Former smoker How long has it been since you last smoked? Suman ter than 10 years Vital Signs Temperature 98.2 degrees Fahrenheit 11/08/19 25 Blood pressure systolic 124 mm Hg 11/08/19 25 Blood pressure diastolic 74 mm Hg 025 Heart Rate 84 /min 11/07/2024 Height 64 in 11/07/2024 Weight 226.9 lbs 11/07/2024 BMI 38.94 kg/m2 11/07/2024 Oximetry 95 % 11/07/2024 Height-cm 162.56 cm 11/07/2024 Weight-kg 102.92 kg 11/07/2024 Encounters Encounter Location Date Provider Diagnosis [facility] [address] [facility] [address] [place] [address] 11/07/2024 Adri Perez Pain in unspecified joint M25.50 ; Connective tissue disease M35.9 ; Fibromyalgia M79.7 and Abnormal urinalysis R82.90 Assessments Encounter Date Diagnosis (ICD Code) Assessment Notes Treatment Notes Treatment Clinical Notes Section Notes 11/07/2024 Pain in unspecified joint (ICD-10 - [...] return in 3 months Plan Of Treatment Medication Medication Name Sig Start Date Stop Date Notes Methotrexate Sodium 2.5 MG 9 Orally once a week for 90 days Next Appt Details Follow Up: 3 Months, Reason: Provider Name:Adri Du, 02/11 01:15:00 PM, [address] [facility] [address], [place], [address], Progress Notes * Sheila LANDISDOB:1950 (74 yo F)Acc No.[id number]:11/07/2024 Progress Notes Patient: Joni METCALFRafatSheila Provider: Roseanne PEREZ MD :1950 A ge:74 Y S ex:Female Date:11/07/2024 Address:[address] [place] [address] , [place] [address] Pcp:Jackie Rizvi MD Subjective: * Chief Complaints: * Y d/3 month follow up/flcConnective tissue diseasereferred by Dr. Jackie Rizvi * HPI: G eneral Follow up: on MTX 25mg/wk, plaquenil 400mg/day, on cymbalta 60mg/day and t izanidine, meds helping, doing well, hands bother her sometimes, sees pain management for back, to have RF ablation, having PT for neck She was diagnosed with undifferentiated connective tissue disease [place] [address] England (GUS 1:160, cascade negative). She has been taking plaquenil 400mg since diagnosis. on methotrexate 25mg/wk.? She has a history of fibromyalgia for years. She has been taking cymbalta 60mg/day for several years, tizanidine has helped a lot lyrica caused depression. 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 * ROS: G eneral / Constitutional: Patient denies f melita, chills. P atient complains of?fatigue. M usculoskeletal: Patient complains of s ee HPI. S kin: Patient denies r parvin. * Medical History: * Surgical History: c holecystectomy, hysterectomy, bariatric surgery * Hospitalization/Major Diagno stic Procedure: * Social History: T obacco Use: T obacco Control (Standard) T obacco use: F ormer smoker, H ow long has it been since you last smoked? G reater than 10 years. D rug/Alcohol: D o you drink alcohol?: No. H ousehold: H ousehold M arital status: m arried, N umber of children in household: 0 .? M iscellaneous: E xercise: No. * Medications: T akinghydrOXYzine HCl 10 MG Tablet 1 tablet as needed Orally twice a day Esomeprazole Magnesium 40 MG Capsule Delayed Release as directed Orally ZyrTEC 10 MG Tablet Chewable 1 tablet Orally Once a day Olopatadine HCl 0.6 % Solution 2 sprays in each nostril Nasally Twice a day Breo Ellipta 200-25 MCG/ACT Aerosol Powder Breath Activated 1 puff Inhalation Once a day Spiriva Respimat 2.5 MCG/ACT Aerosol Solution 2 puffs Inhalation Once a day Vitamin D3 125 MCG (5000 UT) Capsule 1 capsule Orally Once a day Vitamin B12 busPIRone HCl 15 MG Tablet 1 tablet Orally Twice a day oxyBUTYnin Chloride 5 MG Tablet 1 tablet Orally twice a day Levalbuterol Tartrate 45 MCG/ACT Aerosol 1 puff as needed Inhalation every 6 hrs Fluticasone Propionate 50 MCG/ACT Suspension 1 spray in each nostril Nasally Once a day Ibuprofen 600 MG Tablet 1 tablet with food or milk as needed Orally once a day Aleve 220 MG Tablet 1-2 tablets prn Orally every 12 hrs DULoxetine HCl 60 MG Capsule Delayed Release Particles 1 capsule Orally twice a day Folic Acid 1 MG Tablet 1 tablet Orally Once a day Methotrexate Sodium 2.5 MG Tablet TAKE 10 TABLETS BY MOUTH WEEKLY tiZANidine HCl 4 MG Tablet TAKE 1 TABLET BY MOUTH TWICE A DAY NEEDED Methylphenidate HCl ER 36 MG Tablet Extended Release 24 Hour 1 tablet in the morning Orally Once a day Medication List reviewed and reconciled with the patientTaking hydrOXYzine HCl 10 MG Tablet 1 tablet as needed Orally twice a day Taking Esomeprazole Magnesium 40 MG Capsule Delayed Release as directed Orally Taking ZyrTEC 10 MG Tablet Chewable 1 tablet Orally Once a day Taking Olopatadine HCl 0.6 % Solution 2 sprays in each nostril Nasally Twice a day Taking Breo Ellipta 200-25 MCG/ACT Aerosol Powder Breath Activated 1 puff Inhalation Once a day Taking Spiriva Respimat 2.5 MCG/ACT Aerosol Solution 2 puffs Inhalation Once a day Taking Vitamin D3 125 MCG (5000 UT) Capsule 1 capsule Orally Once a day Taking Vitamin B12 Taking busPIRone HCl 15 MG Tablet 1 tablet Orally Twice a day Taking oxyBUTYnin Chloride 5 MG Tablet 1 tablet Orally twice a day Taking Levalbuterol Tartrate 45 MCG/ACT Aerosol 1 puff as needed Inhalation every 6 hrs Taking Fluticasone Propionate 50 MCG/ACT Suspension 1 spray in each nostril Nasally Once a day Taking Ibuprofen 600 MG Tablet 1 tablet with food or milk as needed Orally once a day Taking Aleve 220 MG Tablet 1-2 tablets prn Orally every 12 hrs Taking DULoxetine HCl 60 MG Capsule Delayed Release Particles 1 capsule Orally twice a day Taking Folic Acid 1 MG Tablet 1 tablet Orally Once a day Taking Methotrexate Sodium 2.5 MG Tablet TAKE 10 TABLETS BY MOUTH WEEKLY Taking tiZANidine HCl 4 MG Tablet TAKE 1 TABLET BY MOUTH TWICE A DAY NEEDED Taking Methylphenidate HCl ER 36 MG Tablet Extended Release 24 Hour 1 tablet in the morning Orally Once a day Medication List reviewed and reconciled with the patient * Allergies: N SAIDs: abdominal painAdhesiveno[Allergies Verified] Objective: * Vitals: B P:124/74mm Hg, HR:84/min, Temp:98.2F, Oxygen sat %:95%, Wt:226.9lbs, Wt- k.92kg, Ht:64in, Ht-cm:162.56cm, BMI:38.94Index, Body Surface Area:2.16. * Examination: G eneral Examination: General appearance: a lert, well-nourished and in no acute distress. Head: n ormocephalic, atraumatic. Eyes: n ormal. Skin: n o rash. Lungs: r espiratory effort normal. N eurology: Speech: n ormal. P sychiatry: Affect / mood: a ppropriate. R heumatology: b il MCPs and wrists tender, L 2nd and 3rd MCPs slightly puffy, +mild pain in shoulders with abduction. Assessment: * Assessment: 1. C onnective tissue disease - M35.9 (Primary) 2 . P ain in unspecified joint - M25.50 3 . F ibromyalgia - M79.7 4 . A bnormal urinalysis - R82.90 stable for the most part, de crease MTX to 22.5mg/wk, , continue plaquenil, cymbalta and tizanidine. labs today, return in 3 months Plan: * Treatment: * Procedure Codes: * Follow Up: 3 Months * Billing Information: * Visit Code: 21866 Office Visit, Est Pt., Level 4. * Procedure Codes: Images * PatientLetter 11/08/2024 08: 13:09 * Sign off status: Completed true * Provider: Roseanne PEREZ MD Date: 0 11/07/2024 Generated for Lucio hou/Senthil/Lito on: 0 12/17/2024 08:54 PM CDT History and Physical Notes * HPI (History of Present Illness) Category Sub-Category Detail Notes Category Not es General Follow up on MTX 25mg/wk, plaquenil 400mg/day, on cymbalta 60mg/day and tizanidine, meds helping, doing well, hands bother her sometimes, sees pain management for back, to have RF ablation, having PT for neck She was diagnosed with undifferentiated connective tissue disease in [address] England (GUS 1:160, cascade negative). She has been taking plaquenil 400mg since diagnosis. on methotrexate 25mg/wk. She has a history of fibromyalgia for years. She has been taking cymbalta 60mg/day for several years, tizanidine has helped a lot lyrica caused depression. did not tolerate gabapentin 04/25/2024, GUS 1:160 (homogeneous), cascade (-), RF/CCP (-), HBV/HCV (-), ESR, CRP, CK, C3 and C4 normal, Cr 0.75, AST/ALT normal, calcium 10.4, Hb 11.4, WBC and platelets normal, UA: WBC 21-50, LE 4+, nitrite (+), Xrays of hands - osteoarthritis, erosive OA at [address] 5[address] DIPs, osteopenia eye exam: 07/2024 daughter: RA, fibromyalgia Examination Category Sub-Category Detail Notes Category Not es Rheumatology glenda MCPs and wrists tender, L 2nd and 3rd MCPs slightly puffy, +mild pain in shoulders with abduction Neurology Speech: normal Psychiatry Affect / mood: appropriate General Examination General appearance: alert, w ell-nourished and in no acute distress Head: normocephalic, atrau matic Eyes: normal Lungs: respiratory effort n ormal Skin: no rash
--- OUTSIDE RECORDS SUMMARY | 2024-12-17 20:55 | XMS_ITS | Clinical Summary ---
Author Organization [facility] Address [address] [place] [address] Care Team Providers Care Station Agent Name Role Phone Unavailable Primary Care Provider Unavailabl e Source Comments [facility],non-owned Affiliates and Associated Physician Practices is amultiple site organization consisting of ambulatory clinics and hospital sitesin [place], [place], [place] and [place]. This disclosure is being madepursuant to the Care Everywhere program and may not contain all information available regarding this patient. Last updated 18.[facility] 21GRAMS Allergies Active Allergy Reactions Criticality Noted Date Comments Nsaids Swelling 05/26/2017 Social History Tobacco Use Types Packs/Day Years Used Date Smoking Tobacco: Never Assessed Comments Unknown Sex and Gender Information Value Date Recorded Sex Assigned at Not on file Legal Sex Female 8:52 PM CDT Gender Identity Not on file Sexual Orientation Not on file Plan of Treatment Health Maintenance Due Date Last Done Comments BONE DENSITY TESTING 1950 COLOGUARD (AGES 45-75) - COL ON CA SCREENING 1950 COLON MONITORING 1950 COLONOSCOPY - COLON CA SCREENING 1949 CT COLONOGRAPHY - COLON CA SCREENING 1950 Colorectal Cancer Screening 1950 FIT - COLON CA SCREENING 1950 FLEX SIG - COLON CA SCREENING 1950 LIPID TESTING 1950 MAMMOGRAM 1950 HEPATITIS C SCREENING 07/02/1967 DTAP/TDAP/TD VACCINES (1 - Tdap) 1968 PNEUMOCOCCAL VACCINE 50+ (1 of 1 - PCV) 1999 ZOSTER VACCINE (1 of 2) 1999 COVID-19 VACCINE (2023-2 5 season) 2024 Respiratory Syncytial Virus (RSV) Vaccine Pt: or over 60 yrs (1 - 1-dose 75+ series) 2024 DEPRESSION SCREENING 07/24/2024 INFLUENZA VACCINE (Season Ended) 2025 HEPATITIS B VACCINE Aged Out No longe r eligible based on patient's age to complete this topic HIB VACCINE Aged Out No longer eligi ble based on patient's age to complete this topic HPV VACCINE Aged Out No longer eligi ble based on patient's age to complete this topic MENINGOCOCCAL (Group B) VACC INE SHARED DECISION-MAKING Aged Out No longer eligibl e based on patient's age to complete this topic MENINGOCOCCAL GROUPS A/C/Y/W VACCINE Aged Out No longer eligible b ased on patient's age to complete this topic Insurance [facility] MANAGED MEDICARE ADV [facility] SELF PAY NO INSURANCE Member Subscriber Plan / Payer (Ef fective for All Dates) Name:Sheila Landis Member ID:Not on file Relation to Subscriber:Not on file Name:SHEILA LANDIS Subscriber ID:Not on file Address: [address] [place] [address] Payer ID:Not on file Group ID:Not on file Type:Self Pay Address: [facility] MANAGED MEDICARE ADV
--- OUTSIDE RECORDS SUMMARY | 2024-12-17 20:55 | XMS_ITS ---
Author Organization [facility] [place] ([address]) Address [address] [place] [address] Care Team Providers Care Splicer Operator Name Role Phone Dmitri GAITAN, Jackie Primary Care Provider Unav Akosua Monteiro Unavailable [phone] Dano Hermosillo [phone] REASON FOR VISIT XOLAIR SP Only Social History Sex Assigned At : Social History Observation Description Sex Assigned At Female Encounters Encounter Location Date Provider Diagnosis [facility] [address] [place] [address] 10/10/2024 Dano Hermosillo Plan Of Treatment No Information Progress Notes * Sheila LANDISDOB:[birth year] (74 yo F)Acc No.[id number]:10/10/2024 Xolair Only Patient: Joni [address]CO[address] Sheila Saldivar Provider: Mateo Hermosillo MD :1950 A ge:74 Y S ex:Female Date:10/10/2024 Address:[address], [facility] Pcp:Jackie Rizvi MD Subjective: * Chief Complaints: * 1 . XOLAIR SP Only. * Medical History: Objective: * Vitals: Assessment: Plan: * Treatment: * Billing Information: * Visit Code: * Procedure Codes: * Electronic signature of Ale Hermosillo MD, FAAAAI on 12/17/2024 at 08:55 PM CDT Sign off status: Pending * Provider: Mateo Hermosillo MD Date: 0 10/10/2024 Generated for Lucio hou/Senthil/Lito on: 0 12/17/2024 08:55 PM CDT
== END 2024-12-17 21:51 | disposition home or self-care (01) ==
LOC: ANHED 20:52
PROVIDERS: Student in an Organized Health Care Education/Training Program; Emergency Provider Emergency Medicine; PCP Family Medicine
DX: M54.32 Sciatica, left side (principal); M35.89 Other specified systemic involvement of connective tissue; M19.90 Unspecified osteoarthritis, unspecified site; Z98.84 Bariatric surgery status; Z87.891 Personal history of nicotine dependence; Z90.711 Acquired absence of uterus with remaining cervical stump; Z90.49 Acquired absence of other specified parts of digestive tract; Z79.899 Other long term (current) drug therapy
CPT/HCPCS: 36415; 73502; 80048; 85025; 85610; 85730; 96372; 99283; A9270; J1885

== ENCOUNTER 2025-01-22 12:05 | Outpatient (CLI) | payer MEDICARE, SELFPAY ==
--- OUTSIDE RECORDS SUMMARY | 2025-01-22 12:08 | XMS_ITS | Clinical Summary ---
Author Organization [facility] Address [address] [place] [address] Care Team Providers Care General Office Assistant Name Role Phone Unavailable Primary Care Provider Unavailabl e Source Comments [facility],non-owned Affiliates and Associated Physician Practices is amultiple site organization consisting of ambulatory clinics and hospital sitesin [place], [place], [place] and [place]. This disclosure is being madepursuant to the Care Everywhere program and may not contain all information available regarding this patient. Last updated 18.[facility] [employer] Allergies Active Allergy Reactions Criticality Noted Date [...] 1-dose 75+ series) 2024 DEPRESSION SCREENING 07/24/2024 MEDICARE AWV CALENDAR YEAR 2024 INFLUENZA VACCINE (Season Ended) 2025 HEPATITIS B [...] patient's age to complete this topic Insurance [facility] MANAGED MEDICARE ADV [facility] SELF PAY NO INSURANCE Member Subscriber Plan / Payer (Ef fective for All Dates) Name:Sheila Landis Member ID:Not on file Relation to Subscriber:Not on file Name:SHEILA LANDIS Subscriber ID:Not on file Address: [place] [address] Payer ID:Not on file Group ID:Not on file Type:Self Pay Address: [facility] MANAGED MEDICARE ADV
--- OUTSIDE RECORDS SUMMARY | 2025-01-22 12:08 | XMS_ITS ---
Author Organization [facility] ([address]) Address [address] [place] [address] Care Team Providers Care Mixing Tumbler Operator Name Role Phone Dmitri GAITAN, Jackie Primary Care Provider UnaAkosua Zuniga Unavailable [phone] Dano Hermosillo [phone] REASON FOR VISIT XOLAIR SP Only Social History Sex Assigned At : Social History Observation Description Sex Assigned At Female Encounters Encounter Location Date Provider Diagnosis [facility] [address] [place] [address] 10/10/2024 Dano Hermosillo Plan Of Treatment Next Appt Details Provider Name:Dano Hermosillo , 01/23/2025 12:30:00 PM, [address] [facility], [address], [place], [address], Progress Notes * Sheila LANDISDOB:[birth year] (74 yo F)Acc No.[id number]:10/10/2024 Xolair Only Patient: Sheila NORRIS Provider: Mateo Hermosillo MD :1950 A ge:74 Y S ex:Female Date:10/10/2024 Address:[address] [place] [address] [address] [id number] Pcp:Jackie Rizvi MD Subjective: * Chief Complaints: * 1 . XOLAIR SP Only. * Medical History: Objective: * Vitals: Assessment: Plan: * Treatment: * Billing Information: * Visit Code: * Procedure Codes: * Electronic signature of Ale [facility]illo [facility] on 01/22/2025 at 12:08 PM CDT Sign off status: Pending * Provider: Mateo Hermosillo MD Date: 0 10/10/[address] [facility] [address] [facility]Senthil/Lito on: 0 01/22/2025 12:08 PM CDT
--- OUTSIDE RECORDS SUMMARY | 2025-01-22 12:08 | XMS_ITS | Clinical Summary ---
Author Organization [facility] Building B Address [address] [place] [address] Care Team Providers [employer] Supervisor Name Role Phone Kirby Rizvi MD Primary Care Provider [phone] Allergies No known active allergies Medications TiZANidine (ZANAFLEX) 4 mg capsule Take 1 capsule (4 mg total) by mouth 2 (two) times a day as needed for muscle spasms Active folic acid (FOLVITE) 1 mg tablet Take 1 tablet (1 mg total) by mouth daily Active cetirizine (ZyrTEC) 10 mg tablet Take 1 tablet (10 mg total) by mouth nightly Active olopatadine 0.6 % spray,non-aerosol Administer 1 spray into affected nostril(s) 2 (two) times a day Active lubiprostone (AMITIZA) 24 mcg capsule Take 1 capsule (24 mcg total) by mouth 2 (two) times a day with meals Active Lactobac 40-Bifido 3-S.thermop (Probiotic) 100 billion cell capsule Take 1 tablet by mouth daily Active hydroxychloroquine (PLAQUENIL) 200 mg tablet Take 2 tablets (400 mg total) by mouth daily Active oxyBUTYnin (DITROPAN) 5 mg tablet Take 1 tablet (5 mg total) by mouth 2 (two) times a day Active esomeprazole DR (NexIUM) 40 mg capsule Take 1 capsule (40 mg total) by mouth 2 (two) times a day Active hydrOXYzine (ATARAX) 25 mg tablet Take 1 tablet (25 mg total) by mouth nightly as needed for itching Active tiotropium bromide (SPIRIVA RESPIMAT) 2.5 mcg/actuation inhaler Inhale 2 puffs daily Active fluticasone furoate-vilanteroL (BREO ELLIPTA) 100-25 mcg/dose diskus inhaler Inhale 1 puff daily Rinse mouth with water after use. Do not swallow. Active levalbuterol (XOPENEX HFA) 45 mcg/actuation inhaler Inhale 1-2 puffs every 4 (four) hours as needed for wheezing Active busPIRone (BUSPAR) 15 mg tabletIndications: Generalized Anxiety Disorder Take 1 tablet (15 mg total) by mouth 3 (three) times a day 90 tablet 3 12/21/[address] (CYMBALTA) 60 mg capsuleIndications :Anxiety with Depression,Fibromy algia,Neuropathic Pain Take 1 capsule (60 mg total) by mouth 2 (two) times a day 60 capsule 3 12/21/19 25 025 Active methotrexate 2.5 mg tabletIndications: Other - non-oncology,autoi mmune disease,Mixed connective tissue disease Take 10 tablets (25 mg total) by mouth every 7 days On Fridays 40 tablet 3 12/28/19 25 025 Active polyethylene glycol (MIRALAX) 17 gram/dose bulk powderIndications: constipation Take 17 g by mouth daily as needed (Constipation) 12/21/19 25 Active senna-docusate (PERICOLACE) 8.6-50 mgIndications:cons tipation Take 2 tablets by mouth 2 (two) times a day as needed for constipation 12/21/19 25 Active oxyCODONE (ROXICODONE) 5 mg immediate release tabletIndications: Pain,Lumbar radiculopathy, neuroforaminal stenosis, fibromyalgia, chronic pain syndrome Take 1 tablet (5 mg total) by mouth every 6 (six) hours as needed for pain (Lumbar radiculopathy, neuroforaminal stenosis, fibromyalgia, chronic pain syndrome) 30 tablet 12/21/19 25 Active ferrous sulfate 325 mg (65 mg of elemental iron) tabletIndications: Iron Deficiency Anemia Take 1 tablet (325 mg total) by mouth daily with breakfast 30 tablet 11 12/21/19 25 026 Active cefuroxime (CEFTIN) 500 mg tabletIndications: Urinary Tract/Genitourinar y Infection,E coli UTI Take 1 tablet (500 mg total) by mouth 2 (two) times a day 10 tablet 12/22/19 25 Active Active Problems Problem Noted Date Diagnosed Date Left lumbar radiculopathy 12/20/2024 Neuroforaminal stenosis of lumbar spine 12/21/19 25 Spinal stenosis at L4-L5 level 12/20/2024 Chronic obstructive pulmonary disease 12/20/2024 Iron deficiency anemia secon kiarra to inadequate dietary iron intake 12/20/2024 Gastroesophageal reflux disease without esophagi tis 12/20/2024 Stage 2 chronic kidney disease 12/20/2024 Chronic pain syndrome 12/20/2024 Obstructive sleep apnea on CPAP 12/20/2024 Generalized anxiety disorder with panic attacks 12/20/2024 Anxiety and depression 12/20/2024 Class 2 severe obesity due t o excess calories with serious comorbidity and body mass index (BMI) of 39.0 to 39.9 in adult 12/20/2024 Intractable low back pain 12/19/2024 Assessment & Plan (12/19/2024 1:15 AM CDT): CT abdomen pelvis performed MRI lumbar spine Neurosurgery consultation notified in ER Baclofen p.r.n. trial PTOT evaluation Acute cystitis 12/19/2024 Assessment & Plan (12/19/2024 1:14 AM CDT): Symptoms of cloudy urine, increased urinary frequency, slight vaginal discharge, urinary incontinence developed in the past week IV antibiotic Rocephin Pending follow-up of urine culture results Encounters Date Type Department Care Team Description 12/18/2024 4:46 PM CDT - 12/20/2024 1:50 PM CDT Hospital Encounter [address] [address] Jose David Albright MD Patel, Satyen V., MD Yaganti, Srinivasarao C., MD Intractable low back pain (Primary Dx); Urinary tract infection in female; Acute cystitis without hematuria; Left lumbar radiculopathy; Neuroforaminal stenosis of lumbar spine; Chronic bilateral low back pain with left-sided sciatica; Iron deficiency anemia secondary to inadequate dietary iron intake; Spinal stenosis at L4-L5 level; Chronic obstructive pulmonary disease, unspecified COPD type ([facility]); Gastroesophageal reflux disease without esophagitis; Stage 2 chronic kidney disease; Chronic pain syndrome; Obstructive sleep apnea on CPAP; Generalized anxiety disorder with panic attacks; Anxiety and depression; Class 2 severe obesity due to excess calories with serious comorbidity and body mass index (BMI) of 39.0 to 39.9 in adult ([facility]) Discharge Disposition: Discharge to home or self care from Last 3 Months Surgical History Surgery Date Site/Laterality Comments CHOLECYSTECTOMY HYSTERECTOMY Medical History Medical History Date Comments Asthma Obstructive sleep apnea Lupus (systemic lupus erythematosus) ([facility]) Arthritis Family History Medical History Relation Name Comments Esophageal cancer Brother Asthma Mother Relation Name Status Comments Brother Mother Social History Tobacco Use Types Packs/Day Years Used Date Smoking Tobacco: Former Cigarettes 0.6 60.5 S tarted: 1965 Smokeless Tobacco: Never Tobacco Cessation:Counseling Given: Not Answered [facility] Utilities Answer Date Recorded In the past 12 months has [employer], [employer], or water [employer] threatened to shut off services in your home? No 12/19/2024 Social Connection and Isolat ion Panel [NHANES] Answer Date Recorded In a typical week, how many times do you talk on the phone with family, friends, or neighbors? More than three times a week 12/19/2024 How often do you get togethe r with friends or relatives? More than three times a week 12/19/2024 How often do you attend chur ch or tenriism services? 1 to 4 times per year 12/19/2024 Do you belong to any clubs o r organizations such as latter-day groups, unions, fraternal or athletic groups, or school groups? Yes 12/19/2024 How often do you attend meet ings of the clubs or organizations you belong to? 1 to 4 times per year 12/19/2024 Are you , , di vorced, , never , or living with a partner? 12/19/2024 Overall Financial Resource Strain (CARDIA) Answe r Date Recorded How hard is it for you to pa y for the very basics like food, housing, medical care, and heating? Not hard at all 12/19/2024 Hunger Vital Sign Answer Date Recorded Within the past 12 months, y ou worried that your food would run out before you got the money to buy more. Never true 12/20/19 25 Within the past 12 months, t he food you bought just didn't last and you didn't have money to get more. Never true 12/19/2024 PRAPARE - Transportation Answer Date Re corded In the past 12 months, has l ack of transportation kept you from medical appointments or from getting medications? No 11/22 In the past 12 months, has l ack of transportation kept you from meetings, work, or from getting things needed for daily living? No 12/19/2024 Housing Stability Vital Sign Answer Dar e Recorded In the last 12 months, was t here a time when you were not able to pay the mortgage or rent on time? No 12/19/2024 In the past 12 months, how m any times have you moved where you were living? 0 12/19/2024 At any time in the past 12 m [facility], were you homeless or living in a retirement (including now)? No 12/19/2024 Personal Safety Answer Date Recorded Have you ever been in or are you currently in a harmful physical or emotional relationship or is someone making you feel afraid or unsafe? Denies 12/19/2024 Comments No Sex and Gender Information Value Date Recorded Sex Assigned at Not on file Legal Sex Female 12:54 AM [employer] Gender Identity Not on file Sexual Orientation Not on file Obstetrics History Last Filed Vital Signs Vital Sign Reading Time Taken Comments Blood Pressure 108/65 12/20/2024 7:46 AM CDT Pulse 66 12/20/2024 7:46 AM CDT Temperature 36.7 C (98.1 F) 12/20/2024 7:46 AM CDT Respiratory Rate 18 12/20/2024 7:46 AM CDT Oxygen Saturation 92% 12/20/2024 7:46 AM CDT Inhaled Oxygen Concentration - - Weight 103 kg (227 lb 1.2 oz) 12/19/2024 1:30 AM CDT Height 162.6 cm (5' 4) 12/19/2024 1:30 AM CDT Body Mass Index 38.98 12/19/2024 1:30 AM CDT Plan of Treatment Health Maintenance Due Date Last Done Comments Colon Cancer Screening-Colonoscopy 1950 Depression Screening 1950 Osteoporosis Screening-Bone Density Scan 1950 Hepatitis B Screening 1967 Well Visit 65+ 2014 Zoster Vaccine (2 of 2) 01/30/2022 12/05/2021, 11/20 Covid-19 Vaccine (8 - Pfizer risk season) 2024 03/30/2024, 04/17/2023, 05/10/2022, Additional history exists Influenza Vaccine (#1) 2025 , 04/17/2023, 05/10/2022, Additional history exists Fall Risk Assessment 12/20/2025 12/20/2024 DTaP/Tdap/Td Vaccine (2 - Td or Tdap) 02/25/2030 02/26/2020 Pneumococcal vaccine 65+ Completed 024, 04/19/2018, 04/26/2017, Additional history exists Hepatitis C Screening Completed 04/25/2024 Procedures Procedure Name Priority Date/Time Associated Diagnosis Comments EGFR Routine 12/20/2024 5:43 AM CDT DIFFERENTIAL AUTO Routine 12/20/2024 5:4 3 AM CDT VITAMIN B12 Routine 12/20/2024 5:43 AM CDT FERRITIN Routine 12/20/2024 5:43 AM CDT IRON PROFILE W/ IBC Routine 12/20/2024 5 :43 AM CDT BASIC METABOLIC PANEL Routine 12/20/2024 5:43 AM CDT CBC WITH AUTO DIFFERENTIAL Routine 12/20/2024 5:43 AM CDT POCT GLUCOSE DEVICE Routine 12/19/2024 1 1:11 AM CDT POCT GLUCOSE DEVICE Routine 12/19/2024 7 :49 AM CDT THYROID FUNCTION CASCADE Routine 12/19/2024 4:28 AM CDT EGFR Routine 12/19/2024 4:28 AM CDT DIFFERENTIAL AUTO Routine 12/19/2024 4:2 8 AM CDT BASIC METABOLIC PANEL Routine 12/19/2024 4:28 AM CDT CBC WITH AUTO DIFFERENTIAL Routine 12/19/2024 4:28 AM CDT MRI LUMBAR SPINE WO CONTRAST ED 12/18/2024 7:[address] RECON LUMBAR SPINE W CONTRAST ED 12/18/2024 6:[address] ABDOMEN PELVIS W CONTRAST ED 12/18/2024 6:40 PM CDT URINALYSIS, MICROSCOPIC ONLY STAT 12/18/2024 3:43 PM CDT URINE CULTURE Add-On 12/18/2024 3:43 PM CDT URINALYSIS AND REFLEX TO MICROSCOPIC AND CULTURE STAT 12/18/2024 3:43 PM CDT CRP (ACUTE PHASE) STAT 12/18/2024 3:2 2 PM CDT CREATINE KINASE (CK), TOTAL STAT 12/18/2024 3:22 PM CDT ERYTHROCYTE SEDIMENTATION RATE STAT 12/18/2024 3:22 PM CDT EGFR STAT 12/18/2024 3:22 PM CDT DIFFERENTIAL AUTO STAT 12/18/2024 3:2 2 PM CDT COMPREHENSIVE METABOLIC PANEL STAT 12/18/2024 3:22 PM CDT CBC WITH AUTO DIFFERENTIAL STAT 12/18/2024 3:22 PM CDT HEPATITIS C ANTIBODY Routine 04/25/2024 12:50 PM CDT from Last 3 Months or Most Recently Relevant to Health Maintenance Results * eGFR (12/20/2024 5:43 AM CDT) eGFR 79 >=60 mL/min/1. 73 m2 Comment: Interpretive Data Reference Interval Normal >/= 90 [...] Current interpretive data was last reviewed 2021. Blood 12/20/2024 5:43 AM CDT 12/20/2024 6:26 AM CDT us Elke Ann MD LAB BLOOD ORDERABLES Final Result [facility] [address] Department [place] [address] * (ABNORMAL) Differential, auto (12/20/2024 5:43 AM CDT) Neutrophil abs 6.57(H) 1.50 - 6.50 K/cumm Imm gran abs 0.06 0.00 - 0.10 K/cumm [facility] Lymphocyte abs 4.65(H) 0.80 - 3.30 K/cumm [facility] Monocyte abs 1.18(H) 0.20 - 0.80 K/cumm [facility] Eosinophil abs 0.26 0.00 - 0.50 K/cumm [facility] Basophil abs 0.07 0.00 - 0.10 K/cumm [facility] Neutrophil pct 51.4 % [facility] Comment: Interpretive Data Percent cell count reference ranges are not reported, since discordance with absolute values may lead to misinterpretation of CBC data. Current Interpretive Data was last revised on 2017. Imm gran pct 0.5 % [facility] Comment: Interpretive Data Percent cell count reference ranges are not reported, since discordance with absolute values may lead to misinterpretation of CBC data. Current Interpretive Data was last revised on 2017. Lymphocyte pct 36.4 % [facility] Comment: Interpretive Data Percent cell count reference ranges are not reported, since discordance with absolute values may lead to misinterpretation of CBC data. Current Interpretive Data was last revised on 2017. Monocyte pct 9.2 % [facility] Comment: Interpretive Data Percent cell count reference ranges are not reported, since discordance with absolute values may lead to misinterpretation of CBC data. Current Interpretive Data was last revised on 2017. Eosinophil pct 2.0 % [facility] Comment: Interpretive Data Percent cell count reference ranges are not reported, since discordance with absolute values may lead to misinterpretation of CBC data. Current Interpretive Data was last revised on 2017. Basophil pct 0.5 % [facility] Comment: Interpretive Data Percent cell count reference ranges are not reported, since discordance with absolute values may lead to misinterpretation of CBC data. Current Interpretive Data was last revised on 2017. Blood 12/20/2024 5:43 AM CDT 12/20/2024 6:27 AM CDT us Cassandra Lopez MD LAB BLOOD ORDERABLES Final Re sult [facility] [address] Department [place] [address] * (ABNORMAL) Iron profile w/ IBC (12/20/2024 5:43 AM CDT) Pathologist [facility] Iron 37 35 - 145 mcg/dL TIBC 405(H) 250 - 400 mcg/dL [facility] Transferrin saturation 9(L) 20 - 50 % [facility] Blood 12/20/2024 5:43 AM CDT 12/20/2024 6:26 AM CDT Elke Ann MD LAB BLOOD ORDERABLES Final Result Performing Organization Address City/[facility]/ZIP Co de Phone Number [address] [place] [place] [address] * (ABNORMAL) CBC with auto differential (12/20/2024 5:43 AM CDT) [facility] WBC 12.79(H) 3.80 - 9.90 K/cumm Hgb 11.6(L) 11.9 - 15.5 g/dL [facility] Hct 38.1 35.6 - 45.5 % [facility] Plt 385 150 - 400 K/cumm [facility] MPV 9.5 9.1 - 12.3 fL [facility] RBC 4.36 3.90 - 5.20 M/cumm [facility] MCV 87.4 81.3 - 96.4 fL [facility] MCH 26.6(L) 27.1 - 33.3 pg [facility] MCHC 30.4(L) 32.3 - 35.7 g/dL [facility] RDW CV 18.6(H) 11.1 - 14.9 % [facility] RDW SD 57.6(H) 35.7 - 48.1 fL [facility] NRBC abs 0.00 0.00 - 0.01 K/cumm [facility] Blood 12/20/2024 5:43 AM CDT 12/20/2024 6:27 AM CDT us Cassandra Lopez MD LAB BLOOD ORDERABLES Final Re sult Performing Organization Address City/[facility]/ZIP Co de Phone Number [address] [place] [place] [address] * (ABNORMAL) Ferritin (12/20/2024 5:43 AM CDT) [facility] Ferritin 11(L) 15 - 150 ng/mL Blood 12/20/2024 5:43 AM CDT 12/20/2024 6:26 AM CDT Elke Ann MD LAB BLOOD ORDERABLES Final Result Performing Organization Address [facility] Co de Phone Number [address] [place] [address] * Vitamin B12 (12/20/2024 5:43 AM CDT) [facility] Vitamin B12 1,210 230 - 1,250 pg/mL Blood 12/20/2024 5:43 AM CDT 12/20/2024 6:26 AM CDT Elke Ann MD LAB BLOOD ORDERABLES Final Result Performing Organization Address [facility] de Phone Number [address] [place] [address] * Basic metabolic panel (12/20/2024 5:43 AM CDT) [facility] Sodium 142 135 - 145 mmol/L Potassium, pl 4.0 3.3 - 4.9 mmol/L [facility] Chloride 106 97 - 110 mmol/L [facility] CO2 23 22 - 32 mmol/L [facility] Anion gap 13 2 - 15 mmol/L [facility] BUN 20 6 - 25 mg/dL [facility] Creatinine 0.78 0.60 - 1.10 mg/dL [facility] Glucose 127 70 - 199 mg/dL [facility] Comment: Interpretive Data Fasting glucose >/= 126 mg/dl [...] Current interpretive data was last revised 2022. Calcium 9.8 8.5 - 10.3 mg/dL [facility] Blood 12/20/2024 5:43 AM CDT 12/20/2024 6:26 AM CDT Elke Ann MD LAB BLOOD ORDERABLES Final Result Performing Organization Address City/[facility] Co de Phone Number [address] [place] [place] [address] * POCT glucose (12/19/2024 11:11 AM CDT) Glucose, POC 157 70 - 199 mg/dL Glucose comment 1 RN/ Notified [facility] Blood 12/19/2024 11:1 1 AM CDT 12/19/2024 11:11 AM CDT Elke Ann MD LAB POCT ORDERABLES - DEVICE Final Result Performing Organization Address [facility] Co de Phone Number [address] [place] [place] [address] * POCT glucose (12/19/2024 7:49 AM CDT) Glucose, POC 131 70 - 199 mg/dL Glucose comment 1 RN/MD Notified [facility] Blood 12/19/2024 7:49 AM CDT 12/19/2024 7:49 AM CDT Elke Ann MD LAB POCT ORDERABLES - DEVICE Final Result Performing Organization Address City/[facility] Co de Phone Number [address] [place] [address] * eGFR (12/19/2024 4:28 AM CDT) eGFR 89 >=60 mL/min/1. 73 m2 Comment: Interpretive Data Reference Interval Normal >/= 90 [...] Current interpretive data was last reviewed 2021. Blood 12/19/2024 4:28 AM CDT 12/19/2024 5:06 AM CDT us Cassandra Lopez MD LAB BLOOD ORDERABLES Final Re sult [facility] [address] Department [place] [address] * (ABNORMAL) Differential, auto (12/19/2024 4:28 AM CDT) Pathologist [facility] Neutrophil abs 8.27(H) 1.50 - 6.50 K/cumm Imm gran abs 0.08 0.00 - 0.10 K/cumm [facility] Lymphocyte abs 0.75(L) 0.80 - 3.30 K/cumm [facility] Monocyte abs 0.38 0.20 - 0.80 K/cumm [facility] Eosinophil abs 0.00 0.00 - 0.50 K/cumm [facility] Basophil abs 0.02 0.00 - 0.10 K/cumm [facility] Neutrophil pct 87.1 % [facility] Comment: Interpretive Data Percent cell count reference ranges are not reported, since discordance with absolute values may lead to misinterpretation of CBC data. Current Interpretive Data was last revised on 2017. Imm gran pct 0.8 % [facility] Comment: Interpretive Data Percent cell count reference ranges are not reported, since discordance with absolute values may lead to misinterpretation of CBC data. Current Interpretive Data was last revised on 2017. Lymphocyte pct 7.9 % [facility] Comment: Interpretive Data Percent cell count reference ranges are not reported, since discordance with absolute values may lead to misinterpretation of CBC data. Current Interpretive Data was last revised on 2017. Monocyte pct 4.0 % [facility] Comment: Interpretive Data Percent cell count reference ranges are not reported, since discordance with absolute values may lead to misinterpretation of CBC data. Current Interpretive Data was last revised on 2017. Eosinophil pct 0.0 % [facility] Comment: Interpretive Data Percent cell count reference ranges are not reported, since discordance with absolute values may lead to misinterpretation of CBC data. Current Interpretive Data was last revised on 2017. Basophil pct 0.2 % [facility] Comment: Interpretive Data Percent cell count reference ranges are not reported, since discordance with absolute values may lead to misinterpretation of CBC data. Current Interpretive Data was last revised on 2017. Blood 12/19/2024 4:28 AM CDT 12/19/2024 5:05 AM CDT us Cassandra Lopez MD LAB BLOOD ORDERABLES Final Re sult Performing Organization Address City/[facility]/ZIP Co de Phone Number [facility] [address] Department [place] [address] * Thyroid Function Reagan (12/19/2024 4:28 AM CDT) TSH 1.93 0.30 - 4.20 mcIUnit/mL Blood 12/19/2024 4:28 AM CDT 12/19/2024 5:06 AM CDT Elke Ann MD LAB BLOOD ORDERABLES Final Result Performing Organization Address City/State/[facility] Co de Phone Number [facility] Department [place] [address] * (ABNORMAL) CBC with auto differential (12/19/2024 4:28 AM CDT) [facility] WBC 9.50 3.80 - 9.90 K/cumm Hgb 11.0(L) 11.9 - 15.5 g/dL [facility] Hct 34.4(L) 35.6 - 45.5 % [facility] Plt 364 150 - 400 K/cumm [facility] MPV 9.0(L) 9.1 - 12.3 fL [facility] RBC 4.10 3.90 - 5.20 M/cumm [facility] MCV 83.9 81.3 - 96.4 fL [facility] MCH 26.8(L) 27.1 - 33.3 pg [facility] MCHC 32.0(L) 32.3 - 35.7 g/dL [facility] RDW CV 18.1(H) 11.1 - 14.9 % [facility] RDW SD 54.4(H) 35.7 - 48.1 fL [facility] NRBC abs 0.00 0.00 - 0.01 K/cumm [facility] Blood 12/19/2024 4:28 AM CDT 12/19/2024 5:05 AM CDT Cassandra Lopez MD LAB BLOOD ORDERABLES Final Re sult [facility] [address] Department [place] [address] * Basic metabolic panel (12/19/2024 4:28 AM CDT) [facility] Sodium 140 135 - 145 mmol/L Potassium, pl 4.7 3.3 - 4.9 mmol/L [facility] Chloride 105 97 - 110 mmol/L [facility] CO2 26 22 - 32 mmol/L [facility] Anion gap 9 2 - 15 mmol/L [facility] BUN 23 6 - 25 mg/dL [facility] Creatinine 0.71 0.60 - 1.10 mg/dL [facility] Glucose 121 70 - 199 mg/dL [facility] Comment: Interpretive Data Fasting glucose >/= 126 mg/dl [...] Current interpretive data was last revised 2022. Calcium 9.9 8.5 - 10.3 mg/dL [facility] Blood 12/19/2024 4:28 AM CDT 12/19/2024 5:06 AM CDT us Cassandra Lopez MD LAB BLOOD ORDERABLES Final Re sult [facility] [address] Department [place] [address] * MRI Lumbar Spine WO Contrast (12/18/2024 7:48 PM CDT) Anatomical Region Laterality Modality Spine N/A Magnetic Resonan ce 12/18/2024 10:2 9 PM CDT Narrative 12/18/2024 10:38 PM CDT EXAM DESCRIPTION: MRI LUMBAR SPINE WO CONTRAST REASON FOR STUDY: Low back pain, cauda equina syndrome suspected Pt presents to ED for multiple medical complaints x 5 days Pt was seen at [facility] and got a left hip XR, that showed no abnormalities. Had PCP appt at 12:30pm, and was told to come to ED for worsening symptoms and for a CT Endorses: burning during urination, left lower pelvic pain that radiates to to left groin area and around hip to buttocks area, urinary frequency, intermittent nausea, numbness/tingling to left leg per patient, there is a nerve problem there too I bet Denies: loss of bowel or bladder, vomiting/diarrhea, fevers/chills, cp/sob, TECHNIQUE: Sagittal and Axial imaging includes T1, T2, STIR sequences. COMPARISON: CT of the lumbar spine of December 18, 2024. FINDINGS: LOWER THORACIC: Incompletely imaged. No significant stenosis seen. SACRUM: Visualized upper sacrum intact. VISUALIZED UPPER ABDOMEN: There is dilation of the common bile duct measuring up to 12 mm in diameter, unchanged from previous. SEGMENTATION: No transitional anatomy. The lowest well-developed disc space is labeled L5-S1. ALIGNMENT: There is minimal anterolisthesis of L4 on L5. The lumbar spine is otherwise in normal alignment. VERTEBRAE: Vertebral body height well-maintained. There is minimal edema adjacent to a tiny inferior endplate Schmorl's node in the L4 vertebral body. There is minimal fatty endplate change at the lumbosacral junction and at T12-L1.. DISC HEIGHT: There is mild disc height loss at L4-L5 and L5-S1. There is diffuse disc desiccation through out the lumbar spine. HARDWARE: None in the spine. CORD/CAUDA: Normal in size and signal intensity. Conus at the appropriate level. INDIVIDUAL DISC LEVELS: T12-L1: There is a minimal right lateral disc bulge which may affect the exiting right nerve root (series 601, image 5). There is no significant central canal stenosis or neural foraminal narrowing. L1-2: No diffuse disc bulge or focal herniation. No significant spinal canal or neuroforaminal stenosis. L2-3: There is no significant disc bulge. There is moderate facet arthropathy and ligamentum flavum hypertrophy resulting in mild central canal stenosis. No significant neural foraminal narrowing. L3-4: There is no significant disc bulge. There is moderate facet arthropathy and ligamentum flavum hypertrophy resulting in mild central canal stenosis. No significant neural foraminal narrowing. L4-5: There is a small broad-based disc bulge, severe facet arthropathy and ligamentum flavum hypertrophy resulting in jelj-ny-idqjleke central canal stenosis, mild right and moderate to severe left neural foraminal narrowing. L5-S1: There is a small broad-based disc bulge and mild facet arthropathy. The disc bulge extends into the neural foramina bilaterally resulting in moderate right and rxur-rn-rxhrfqed left neural foraminal narrowing. IMPRESSION: Ctdj-qa-lhxvzicm multilevel degenerative disc disease and facet arthropathy resulting in central canal stenosis and neural foraminal narrowing, most pronounced at L4-L5 on the left. Minimal right lateral disc bulge at T12-L1 which may affect the exiting right nerve root. Stable dilation of the common bile duct. THIS IS AN ELECTRONICALLY VERIFIED FINAL REPORT 12/18/2024 10:38 PM - Electronically signed by Mary Alice Lal M.D. SN T: Report ID: [id number] Reading Location: [id number] Procedure Note Mary Alice Lal MD - 12/18/2024 EXAM DESCRIPTION: MRI LUMBAR SPINE WO CONTRAST REASON FOR STUDY: Low back pain, cauda equina syndrome suspected Pt presents to ED for multiple medical complaints x 5 days Pt was seen[facility] and got a left hip XR, that showed no abnormalities. Had PCP apptat 12:30pm, and was told to come to ED for worsening symptoms and for a CT Endorses: burning during urination, left lower pelvic pain that radiatesto to left groin area and around hip to buttocks area, urinary frequency, intermittent nausea, numbness/tingling to left leg per patient, there caitlin nerve problem there too I bet Denies: loss of bowel or bladder, vomiting/diarrhea, fevers/chills, cp/sob, TECHNIQUE: Sagittal and Axial imaging includes T1, T2, STIR sequences. COMPARISON: CT of the lumbar spine of December 18, 2024. FINDINGS: LOWER THORACIC: Incompletely imaged. No significant stenosisseen. SACRUM: Visualized upper sacrum intact. VISUALIZED UPPER ABDOMEN: There is dilation of the common bile ductmeasuring up to 12 mm in diameter, unchanged from previous. SEGMENTATION: No transitional anatomy. The lowest well-developed discspace is labeled L5-S1. ALIGNMENT: There is minimal anterolisthesis of L4 on L5. The lumbarspine is otherwise in normal alignment. VERTEBRAE: Vertebral body height well-maintained. There is minimaledema adjacent to a tiny inferior endplate Schmorl's node in the L4 vertebralbody. There is minimal fatty endplate change at the lumbosacral junction and at T12-L1.. DISC HEIGHT: There is mild disc height loss at L4-L5 and L5-S1. Thereis diffuse disc desiccation through out the lumbar spine. HARDWARE: None in the spine. CORD/CAUDA: Normal in size and signal intensity. Conus at theappropriate level. INDIVIDUAL DISC LEVELS: T12-L1: There is a minimal right lateral disc bulge which may affect the exiting right nerve root (series 601, image 5). There is no significant central canal stenosis or neural foraminal narrowing. L1-2: No diffuse disc bulge or focal herniation. No significant spinalcanal or neuroforaminal stenosis. L2-3: There is no significant disc bulge. There is moderate facet arthropathy and ligamentum flavum hypertrophy resulting in mild centralcanal stenosis. No significant neural foraminal narrowing. L3-4: There is no significant disc bulge. There is moderate facet arthropathy and ligamentum flavum hypertrophy resulting in mild centralcanal stenosis. No significant neural foraminal narrowing. L4-5: There is a small broad-based disc bulge, severe facet arthropathyand ligamentum flavum hypertrophy resulting in pjzc-xz-rhqcsqxa central canal stenosis, mild right and moderate to severe left neural foraminalnarrowing. L5-S1: There is a small broad-based disc bulge and mild facetarthropathy. The disc bulge extends into the neural foramina bilaterally resulting in moderate right and zwiw-pl-liggumzj left neural foraminal narrowing. IMPRESSION: Mbee-ef-bbpjpwup multilevel degenerative disc disease and facetarthropathy resulting in central canal stenosis and neural foraminal narrowing, most pronounced at L4-L5 on the left. Minimal right lateral disc bulge at T12-L1 which may affect the exitingright nerve root. Stable dilation of the common bile duct. THIS IS AN ELECTRONICALLY VERIFIED FINAL REPORT 12/18/2024 10:38 PM - Electronically signed by Mary Alice Lal M.D. SN T: Report ID: [id number] Reading Location: [id number] Jose David Albright MD IM MRI PROCEDURES Final Result * CT Recon Lumbar Spine W Contrast (12/18/2024 6:40 PM CDT) Anatomical Region Laterality Modality Spine N/A Computed Tomogra phy 12/18/2024 9:11 PM CDT Narrative 12/18/2024 9:25 PM CDT EXAM DESCRIPTION: CT RECON LUMBAR SPINE W CONTRAST; CT ABDOMEN PELVIS W CONTRAST REASON FOR STUDY: left low back pain radiating down left leg multiple medical complaints x 5 days Pt was seen at [facility] and got a left hip XR, that showed no abnormalities. Had PCP appt at 12:30pm, and was told to come to ED for worsening symptoms and for a CT Endorses: burning during urination, left lower pelvic pain that radiates to to left groin area and around hip to buttocks area, urinary frequency, intermittent nausea, numbness/tingling to left leg per patient, there is a nerve problem there too I bet Denies: loss of bowel or bladder, vomiting/diarrhea, fevers/chills, cp/sob, Pt ambulated with walker into triage, slowly. RR even/nl. NAD. AAOX4. PMHx: spinal degenerative disease per patient ; pelvic pain, UTI symptoms, hip pain multiple medical complaints x 5 days TECHNIQUE: CT scan of the abdomen and pelvis performed with intravenous and without oral contrast using helical scanning technique with dynamic intravenous contrast injection. Reconstructed coronal and sagittal MPR images reviewed. All images stored on PACS. Automated exposure control was used as a dose optimization technique for this examination. CT reconstructions were performed of the lumbar spine with contrast. Reconstructed coronal and sagittal MPR images. All images stored on PACS. Automated exposure control was used as a dose optimization technique for this examination. CONTRAST TYPE/DOSE: 91mL of IOVERSOL 350 MG IODINE/ML INTRAVENOUS SYRINGE injected via intravenous COMPARISON: Prior CT 12/18/2024 FINDINGS: CT abdomen and pelvis: LOWER CHEST: Limited view through the lung base demonstrates no infiltrate or effusion. Trivial dependent atelectasis. There is a small hiatal hernia. Prior gastric bypass. LIVER: The liver demonstrates no suspicious lesion. GALLBLADDER: Prior cholecystectomy. There is mild prominence of the biliary tree. This may be secondary to the prior cholecystectomy. Common bile duct measures up to 10 mm. There is intra hepatic biliary ductal dilatation. Correlate with liver function tests 2 no evidence of obstruction. SPLEEN: Normal size. No focal lesions. PANCREAS: No identified cystic or solid masses. No significant calcifications. No adjacent inflammation or peripancreatic fluid collections. Pancreatic duct not dilated. ADRENALS: Normal. KIDNEYS/URINARY TRACT: Small cyst upper pole right kidney. Tiny low-density lesion interpolar region right kidney too small to further characterize. This is most likely a cyst. Otherwise, there is symmetric enhancement of the kidneys with no focal abnormality. No nephrolithiasis. Bladder is unremarkable. GI: Fairly moderate stool of the descending colon. No acute inflammatory change of bowel. No obstruction. The appendix is not seen as a discrete structure. No inflammatory oil changer the expected bed. Gastric bypass. PERITONEUM: Tiny umbilical hernia defect. No herniation of bowel or inflammatory change. No free air. No free fluid. RETROPERITONEUM: No adenopathy by size criteria. REPRODUCTIVE: Uterus is absent. No suspicious adnexal mass. VASCULATURE: Atherosclerotic change. No aneurysmal dilatation. Portal vein is patent. MUSCULOSKELETAL: No suspicious lytic or blastic lesion. Mild osteoarthritis of the hips. LUMBAR SPINE: SEGMENTATION: The most inferior fully formed disc space is considered L5-S1. ALIGNMENT: There is trivial anterolisthesis L4 on L5. No pars defect. VERTEBRAE: There is preservation of vertebral body height with no acute fracture. There is moderate multilevel degenerative endplate change. There is mild multilevel facet arthropathy more moderate at L5-S1. DISC HEIGHT: Mild disc space narrowing T12-L1. Vacuum disc phenomenon. Minimal disc space narrowing L4-5 with vacuum disc phenomenon. Moderate to severe disc space narrowing L5-S1 with vacuum disc phenomenon. HARDWARE: None in the spine. INDIVIDUAL DISC LEVELS: L1-2: No significant osseous spinal stenosis or neural foraminal narrowing. L2-3: No significant osseous spinal stenosis. Mild right neural foraminal narrowing. L3-4: No significant osseous spinal stenosis or neural foraminal narrowing. L4-5: No significant osseous spinal stenosis or neural foraminal narrowing. L5-S1: No significant osseous spinal stenosis. Moderate to severe right neural foraminal narrowing. VISUALIZED RIBS: No fractures. SOFT TISSUES: CT abdomen pelvis as above. OTHER: No other significant finding. IMPRESSION: No acute inflammatory change of the abdomen or pelvis. No bowel obstruction or inflammatory change of bowel. Prior cholecystectomy. There is prominence of the biliary tree. This may be secondary to the prior cholecystectomy. Correlate with liver function tests to ensure no evidence of obstruction. Measures 10 mm. Common bile duct Gastric bypass. Tiny umbilical hernia defect. No herniation of bowel or inflammatory change. Mild osteoarthritis of the hips. CT lumbar spine demonstrates no acute fracture. Cpww-xn-xyiqofpk spondylosis. THIS IS AN ELECTRONICALLY VERIFIED FINAL REPORT 12/18/2024 9:25 PM - Electronically signed by Kirby Apodaca M.D. MJ T: Report ID: [id number] Reading Location: [id number] Procedure Note Kirby Apodaca MD - 12/18/2024 EXAM DESCRIPTION: CT RECON LUMBAR SPINE W CONTRAST; CT ABDOMEN PELVIS W CONTRAST REASON FOR STUDY: left low back pain radiating down left leg multiple medical complaints x 5 days Pt was seen at [facility] left hip XR, that showed no abnormalities. Had PCP appt at 12:30pm, andwas told to come to ED for worsening symptoms and for a CT Endorses: burning during urination, left lower pelvic pain that radiates to to left groinarea and around hip to buttocks area, urinary frequency, intermittent nausea, numbness/tingling to left leg per patient, there is a nerve problem theretoo I bet Denies: loss of bowel or bladder, vomiting/diarrhea,fevers/chills, cp/sob, Pt ambulated with walker into triage, slowly. RR even/nl. NAD. AAOX4. PMHx: spinal degenerative disease per patient ; pelvic pain,UTI symptoms, hip pain multiple medical complaints x 5 days TECHNIQUE: CT scan of the abdomen and pelvis performed with intravenousand without oral contrast using helical scanning technique with dynamic intravenous contrast injection. Reconstructed coronal and sagittal MPRimages reviewed. All images stored on PACS. Automated exposure control was usedas a dose optimization technique for this examination. CT reconstructions were performed of the lumbar spine with contrast. Reconstructed coronal and sagittal MPR images. All images stored on PACS. Automated exposure control was used as a dose optimization technique forthis examination. CONTRAST TYPE/DOSE: 91mL of IOVERSOL 350 MG IODINE/ML INTRAVENOUSSYRINGE injected via intravenous COMPARISON: Prior CT 12/18/2024 FINDINGS: CT abdomen and pelvis: LOWER CHEST: Limited view through the lung base demonstrates noinfiltrate or effusion. Trivial dependent atelectasis. There is a small hiatal hernia. Prior gastric bypass. LIVER: The liver demonstrates no suspicious lesion. GALLBLADDER: Prior cholecystectomy. There is mild prominence of thebiliary tree. This may be secondary to the prior cholecystectomy. Common bileduct measures up to 10 mm. There is intra hepatic biliary ductal dilatation. Correlate with liver function tests 2 no evidence of obstruction. SPLEEN: Normal size. No focal lesions. PANCREAS: No identified cystic or solid masses. No significant calcifications. No adjacent inflammation or peripancreatic fluidcollections. Pancreatic duct not dilated. ADRENALS: Normal. KIDNEYS/URINARY TRACT: Small cyst upper pole right kidney. Tinylow-density lesion interpolar region right kidney too small to further characterize.This is most likely a cyst. Otherwise, there is symmetric enhancement of the kidneys with no focal abnormality. No nephrolithiasis. Bladder is unremarkable. GI: Fairly moderate stool of the descending colon. No acuteinflammatory change of bowel. No obstruction. The appendix is not seen as a discrete structure. No inflammatory oil changer the expected bed. Gastric bypass. PERITONEUM: Tiny umbilical hernia defect. No herniation of bowel or inflammatory change. No free air. No free fluid. RETROPERITONEUM: No adenopathy by size criteria. REPRODUCTIVE: Uterus is absent. No suspicious adnexal mass. VASCULATURE: Atherosclerotic change. No aneurysmal dilatation. Portalvein is patent. MUSCULOSKELETAL: No suspicious lytic or blastic lesion. Mildosteoarthritis of the hips. LUMBAR SPINE: SEGMENTATION: The most inferior fully formed disc space is consideredL5-S1. ALIGNMENT: There is trivial anterolisthesis L4 on L5. No pars defect. VERTEBRAE: There is preservation of vertebral body height with no acute fracture. There is moderate multilevel degenerative endplate change.There is mild multilevel facet arthropathy more moderate at L5-S1. DISC HEIGHT: Mild disc space narrowing T12-L1. Vacuum disc phenomenon. Minimal disc space narrowing L4-5 with vacuum disc phenomenon. Moderateto severe disc space narrowing L5-S1 with vacuum disc phenomenon. HARDWARE: None in the spine. INDIVIDUAL DISC LEVELS: L1-2: No significant osseous spinal stenosis or neural foraminalnarrowing. L2-3: No significant osseous spinal stenosis. Mild right neuralforaminal narrowing. L3-4: No significant osseous spinal stenosis or neural foraminalnarrowing. L4-5: No significant osseous spinal stenosis or neural foraminalnarrowing. L5-S1: No significant osseous spinal stenosis. Moderate to severe right neural foraminal narrowing. VISUALIZED RIBS: No fractures. SOFT TISSUES: CT abdomen pelvis as above. OTHER: No other significant finding. IMPRESSION: No acute inflammatory change of the abdomen or pelvis. No bowelobstruction or inflammatory change of bowel. Prior cholecystectomy. There is prominence of the biliary tree. This maybe secondary to the prior cholecystectomy. Correlate with liver functiontests to ensure no evidence of obstruction. Measures 10 mm. Common bile duct Gastric bypass. Tiny umbilical hernia defect. No herniation of bowel or inflammatorychange. Mild osteoarthritis of the hips. CT lumbar spine demonstrates no acute fracture. Zime-[id number]-[id number]. THIS IS AN ELECTRONICALLY VERIFIED FINAL REPORT 12/18/2024 9:25 PM - Electronically signed by Kirby STARK T: Report ID: [id number] Reading Location: [id number] Wandy Juarez NP IMG CT PROCEDURES Final Result * CT Abdomen Pelvis W Contrast (12/18/2024 6:40 PM CDT) Anatomical Region Laterality Modality Body N/A Computed Tomogra phy 12/18/2024 9:11 PM CDT Narrative 12/18/2024 9:25 PM CDT EXAM DESCRIPTION: CT RECON LUMBAR SPINE W CONTRAST; CT ABDOMEN PELVIS W CONTRAST REASON FOR STUDY: left low back pain radiating down left leg multiple medical complaints x 5 days Pt was seen at [facility] and got a left hip XR, that showed no abnormalities. Had PCP appt at 12:30pm, and was told to come to ED for worsening symptoms and for a CT Endorses: burning during urination, left lower pelvic pain that radiates to to left groin area and around hip to buttocks area, urinary frequency, intermittent nausea, numbness/tingling to left leg per patient, there is a nerve problem there too I bet Denies: loss of bowel or bladder, vomiting/diarrhea, fevers/chills, cp/sob, Pt ambulated with walker into triage, slowly. RR even/nl. NAD. AAOX4. PMHx: spinal degenerative disease per patient ; pelvic pain, UTI symptoms, hip pain multiple medical complaints x 5 days TECHNIQUE: CT scan of the abdomen and pelvis performed with intravenous and without oral contrast using helical scanning technique with dynamic intravenous contrast injection. Reconstructed coronal and sagittal MPR images reviewed. All images stored on PACS. Automated exposure control was used as a dose optimization technique for this examination. CT reconstructions were performed of the lumbar spine with contrast. Reconstructed coronal and sagittal MPR images. All images stored on PACS. Automated exposure control was used as a dose optimization technique for this examination. CONTRAST TYPE/DOSE: 91mL of IOVERSOL 350 MG IODINE/ML INTRAVENOUS SYRINGE injected via intravenous COMPARISON: Prior CT 12/18/2024 FINDINGS: CT abdomen and pelvis: LOWER CHEST: Limited view through the lung base demonstrates no infiltrate or effusion. Trivial dependent atelectasis. There is a small hiatal hernia. Prior gastric bypass. LIVER: The liver demonstrates no suspicious lesion. GALLBLADDER: Prior cholecystectomy. There is mild prominence of the biliary tree. This may be secondary to the prior cholecystectomy. Common bile duct measures up to 10 mm. There is intra hepatic biliary ductal dilatation. Correlate with liver function tests 2 no evidence of obstruction. SPLEEN: Normal size. No focal lesions. PANCREAS: No identified cystic or solid masses. No significant calcifications. No adjacent inflammation or peripancreatic fluid collections. Pancreatic duct not dilated. ADRENALS: Normal. KIDNEYS/URINARY TRACT: Small cyst upper pole right kidney. Tiny low-density lesion interpolar region right kidney too small to further characterize. This is most likely a cyst. Otherwise, there is symmetric enhancement of the kidneys with no focal abnormality. No nephrolithiasis. Bladder is unremarkable. GI: Fairly moderate stool of the descending colon. No acute inflammatory change of bowel. No obstruction. The appendix is not seen as a discrete structure. No inflammatory oil changer the expected bed. Gastric bypass. PERITONEUM: Tiny umbilical hernia defect. No herniation of bowel or inflammatory change. No free air. No free fluid. RETROPERITONEUM: No adenopathy by size criteria. REPRODUCTIVE: Uterus is absent. No suspicious adnexal mass. VASCULATURE: Atherosclerotic change. No aneurysmal dilatation. Portal vein is patent. MUSCULOSKELETAL: No suspicious lytic or blastic lesion. Mild osteoarthritis of the hips. LUMBAR SPINE: SEGMENTATION: The most inferior fully formed disc space is considered L5-S1. ALIGNMENT: There is trivial anterolisthesis L4 on L5. No pars defect. VERTEBRAE: There is preservation of vertebral body height with no acute fracture. There is moderate multilevel degenerative endplate change. There is mild multilevel facet arthropathy more moderate at L5-S1. DISC HEIGHT: Mild disc space narrowing T12-L1. Vacuum disc phenomenon. Minimal disc space narrowing L4-5 with vacuum disc phenomenon. Moderate to severe disc space narrowing L5-S1 with vacuum disc phenomenon. HARDWARE: None in the spine. INDIVIDUAL DISC LEVELS: L1-2: No significant osseous spinal stenosis or neural foraminal narrowing. L2-3: No significant osseous spinal stenosis. Mild right neural foraminal narrowing. L3-4: No significant osseous spinal stenosis or neural foraminal narrowing. L4-5: No significant osseous spinal stenosis or neural foraminal narrowing. L5-S1: No significant osseous spinal stenosis. Moderate to severe right neural foraminal narrowing. VISUALIZED RIBS: No fractures. SOFT TISSUES: CT abdomen pelvis as above. OTHER: No other significant finding. IMPRESSION: No acute inflammatory change of the abdomen or pelvis. No bowel obstruction or inflammatory change of bowel. Prior cholecystectomy. There is prominence of the biliary tree. This may be secondary to the prior cholecystectomy. Correlate with liver function tests to ensure no evidence of obstruction. Measures 10 mm. Common bile duct Gastric bypass. Tiny umbilical hernia defect. No herniation of bowel or inflammatory change. Mild osteoarthritis of the hips. CT lumbar spine demonstrates no acute fracture. Ibtb-qb-hpjfdfgh spondylosis. THIS IS AN ELECTRONICALLY VERIFIED FINAL REPORT 12/18/2024 9:25 PM - Electronically signed by Kirby Apodaca M.D. MJ T: Report ID: [id number] Reading Location: [id number] Procedure Note Kirby Apodaca MD - 12/18/2024 EXAM DESCRIPTION: CT RECON LUMBAR SPINE W CONTRAST; CT ABDOMEN PELVIS W CONTRAST REASON FOR STUDY: left low back pain radiating down left leg multiple medical complaints x 5 days Pt was seen at [facility] left hip XR, that showed no abnormalities. Had PCP appt at 12:30pm, andwas told to come to ED for worsening symptoms and for a CT Endorses: burning during urination, left lower pelvic pain that radiates to to left groinarea and around hip to buttocks area, urinary frequency, intermittent nausea, numbness/tingling to left leg per patient, there is a nerve problem theretoo I bet Denies: loss of bowel or bladder, vomiting/diarrhea,fevers/chills, cp/sob, Pt ambulated with walker into triage, slowly. RR even/nl. NAD. AAOX4. PMHx: spinal degenerative disease per patient ; pelvic pain,UTI symptoms, hip pain multiple medical complaints x 5 days TECHNIQUE: CT scan of the abdomen and pelvis performed with intravenousand without oral contrast using helical scanning technique with dynamic intravenous contrast injection. Reconstructed coronal and sagittal MPRimages reviewed. All images stored on PACS. Automated exposure control was usedas a dose optimization technique for this examination. CT reconstructions were performed of the lumbar spine with contrast. Reconstructed coronal and sagittal MPR images. All images stored on PACS. Automated exposure control was used as a dose optimization technique forthis examination. CONTRAST TYPE/DOSE: 91mL of IOVERSOL 350 MG IODINE/ML INTRAVENOUSSYRINGE injected via intravenous COMPARISON: Prior CT 12/18/2024 FINDINGS: CT abdomen and pelvis: LOWER CHEST: Limited view through the lung base demonstrates noinfiltrate or effusion. Trivial dependent atelectasis. There is a small hiatal hernia. Prior gastric bypass. LIVER: The liver demonstrates no suspicious lesion. GALLBLADDER: Prior cholecystectomy. There is mild prominence of thebiliary tree. This may be secondary to the prior cholecystectomy. Common bileduct measures up to 10 mm. There is intra hepatic biliary ductal dilatation. Correlate with liver function tests 2 no evidence of obstruction. SPLEEN: Normal size. No focal lesions. PANCREAS: No identified cystic or solid masses. No significant calcifications. No adjacent inflammation or peripancreatic fluidcollections. Pancreatic duct not dilated. ADRENALS: Normal. KIDNEYS/URINARY TRACT: Small cyst upper pole right kidney. Tinylow-density lesion interpolar region right kidney too small to further characterize.This is most likely a cyst. Otherwise, there is symmetric enhancement of the kidneys with no focal abnormality. No nephrolithiasis. Bladder is unremarkable. GI: Fairly moderate stool of the descending colon. No acuteinflammatory change of bowel. No obstruction. The appendix is not seen as a discrete structure. No inflammatory oil changer the expected bed. Gastric bypass. PERITONEUM: Tiny umbilical hernia defect. No herniation of bowel or inflammatory change. No free air. No free fluid. RETROPERITONEUM: No adenopathy by size criteria. REPRODUCTIVE: Uterus is absent. No suspicious adnexal mass. VASCULATURE: Atherosclerotic change. No aneurysmal dilatation. Portalvein is patent. MUSCULOSKELETAL: No suspicious lytic or blastic lesion. Mildosteoarthritis of the hips. LUMBAR SPINE: SEGMENTATION: The most inferior fully formed disc space is consideredL5-S1. ALIGNMENT: There is trivial anterolisthesis L4 on L5. No pars defect. VERTEBRAE: There is preservation of vertebral body height with no acute fracture. There is moderate multilevel degenerative endplate change.There is mild multilevel facet arthropathy more moderate at L5-S1. DISC HEIGHT: Mild disc space narrowing T12-L1. Vacuum disc phenomenon. Minimal disc space narrowing L4-5 with vacuum disc phenomenon. Moderateto severe disc space narrowing L5-S1 with vacuum disc phenomenon. HARDWARE: None in the spine. INDIVIDUAL DISC LEVELS: L1-2: No significant osseous spinal stenosis or neural foraminalnarrowing. L2-3: No significant osseous spinal stenosis. Mild right neuralforaminal narrowing. L3-4: No significant osseous spinal stenosis or neural foraminalnarrowing. L4-5: No significant osseous spinal stenosis or neural foraminalnarrowing. L5-S1: No significant osseous spinal stenosis. Moderate to severe right neural foraminal narrowing. VISUALIZED RIBS: No fractures. SOFT TISSUES: CT abdomen pelvis as above. OTHER: No other significant finding. IMPRESSION: No acute inflammatory change of the abdomen or pelvis. No bowelobstruction or inflammatory change of bowel. Prior cholecystectomy. There is prominence of the biliary tree. This maybe secondary to the prior cholecystectomy. Correlate with liver functiontests to ensure no evidence of obstruction. Measures 10 mm. Common bile duct Gastric bypass. Tiny umbilical hernia defect. No herniation of bowel or inflammatorychange. Mild osteoarthritis of the hips. CT lumbar spine demonstrates no acute fracture. Iqxa-fv-rfonxelmuscwhxrtagm. THIS IS AN ELECTRONICALLY VERIFIED FINAL REPORT 12/18/2024 9:25 PM - Electronically signed by Kirby STARK T: Report ID: [id number] Reading Location: [place] [address] Wandy Juarez NP IM CT PROCEDURES Final Result * (ABNORMAL) Urinalysis reflex to microscopic and culture Urine (12/18/2024 3:43 PM CDT) Color, ur Yellow Yellow Clarity, ur Clear Clear [facility] Specific gravity, ur 1.008 1.003 - 1.030 [facility] pH, urine 5.5 [facility] Comment: Interpretive Data U rine pH is affected by diet, medications, systemic acid-base disturbances, and renal tubular function. pH may affect urinary stone formation. For example, urine pH below 6.0 may help reduce the tendency for calcium phosphate stones and pH greater than 6.0 may reduce the tendency for uric acid stone formation. Source: [facility] Current Interpretive Data was last revised on 2017 Protein, ur ql Negative Negative [facility] Glucose, ur ql Negative Negative [facility] Ketones, ur Negative Negative [facility] Bilirubin, ur Negative Negative [facility] Blood, ur Negative Negative [facility] Urobilinogen, ur <2.0 <2.0 mg/dL [facility] Nitrite, ur Positive(A) Negative [facility] Leukocyte esterase, ur 2+(A) Negative [facility] UA reflex comment Reflex to microscopic UA will be performed. [facility] Urine 12/18/2024 3:43 PM CDT 12/18/2024 3:45 PM CDT Jose David Albright MD LAB MICROBIOLOGY - GENERAL ORDERABLES Final Result Performing Organization Address [facility] Co de Phone Number [address] [place] [place] [address] * (ABNORMAL) Urinalysis, microscopic only (12/18/2024 3:43 PM CDT) WBC, ur 6-10(A) 0 - 5 /HPF RBC, ur 0-2 0 - 2 /HPF [facility] Culture Reflex Comment Reflex conditions for urine culture (WBC >10) not met. [facility] Urine 12/18/2024 3:43 PM CDT 12/18/2024 3:45 PM CDT Jose David Albirght MD LAB URINE ORDERABLE S Final Result Performing Organization Address [facility] Co de Phone Number [address] [employer] [place], [place] [id number] * (ABNORMAL) Urine culture Urine, bladder (12/18/2024 3:43 PM CDT) Report Final Report: Greater than or equal to 100,000 colonies/mL of Escherichia coli Plus growth of clinically insignificant bacterial vandana. (.) Comment:Testing performed by : [facility], [address] [place]., [address] Organism ESCHERICHIA COLI [facility] Organism PLUS GROWTH OF CLINICALLY INSIGNIFICANT VANDANA. [facility] Urine, bladder 12/18/2024 3: 43 PM CDT 12/19/2024 5:11 AM CDT Narrative [facility] - 12/21/2024 10:25 AM CDT Indications for Culture:->Other (specify) Other Indication:->nitrite +, 2+ leuks and 6-10 WBC Testing performed by [facility] ([phone]) Organism Antibiotic Method Susceptibility Escherichia coli Ampicillin INTERPRETATION Susceptible Escherichia coli Cefazolin INTERPRETATION Susceptible Escherichia coli Nitrofurantoin INTERPRETATION Susceptible Escherichia coli Gentamicin INTERPRETATION Susceptible Escherichia coli Trimethoprim with Sulfamethoxazole IN TERPRETATION Susceptible Escherichia coli Meropenem INTERPRETATION Susceptible Escherichia coli Cefepime INTERPRETATION Susceptible Escherichia coli Ciprofloxacin INTERPRETATION Susceptible Escherichia coli Ceftazidime INTERPRETATION Susceptible Escherichia coli Ceftriaxone INTERPRETATION Susceptible Escherichia coli Piperacillin/Tazobactam INTERPRETATIO N Susceptible Escherichia coli Cephalexin INTERPRETATION Susceptible Escherichia coli Cefuroxime-axetil INTERPRETATION Susceptible Escherichia coli Cefdinir INTERPRETATION Susceptible Wandy Juarez NP LAB MICROBIOLOGY - GENER AL ORDERABLES Final Result [facility] [address] Department [place] [address] * eGFR (12/18/2024 3:22 PM CDT) eGFR 79 >=60 mL/min/1. 73 m2 Comment: Interpretive Data Reference Interval Normal >/= 90 [...] Current interpretive data was last reviewed 2021. Blood 12/18/2024 3:22 PM CDT 12/18/2024 3:25 PM CDT us Jose David Albright MD LAB BLOOD ORDERABLE S Final Result [place] [address] [address] Department [place] [address] * (ABNORMAL) Differential, auto (12/18/2024 3:22 PM CDT) Pathologist [facility] Neutrophil abs 6.48 1.50 - 6.50 K/cumm Imm gran abs 0.06 0.00 - 0.10 K/cumm [facility] Lymphocyte abs 3.01 0.80 - 3.30 K/cumm [facility] Monocyte abs 0.98(H) 0.20 - 0.80 K/cumm [facility] Eosinophil abs 0.29 0.00 - 0.50 K/cumm [facility] Basophil abs 0.07 0.00 - 0.10 K/cumm [facility] Neutrophil pct 59.5 % [facility] Comment: Interpretive Data Percent cell count reference ranges are not reported, since discordance with absolute values may lead to misinterpretation of CBC data. Current Interpretive Data was last revised on 2017. Imm gran pct 0.6 % [facility] Comment: Interpretive Data Percent cell count reference ranges are not reported, since discordance with absolute values may lead to misinterpretation of CBC data. Current Interpretive Data was last revised on 2017. Lymphocyte pct 27.6 % [facility] Comment: Interpretive Data Percent cell count reference ranges are not reported, since discordance with absolute values may lead to misinterpretation of CBC data. Current Interpretive Data was last revised on 2017. Monocyte pct 9.0 % [facility] Comment: Interpretive Data Percent cell count reference ranges are not reported, since discordance with absolute values may lead to misinterpretation of CBC data. Current Interpretive Data was last revised on 2017. Eosinophil pct 2.7 % [facility] Comment: Interpretive Data Percent cell count reference ranges are not reported, since discordance with absolute values may lead to misinterpretation of CBC data. Current Interpretive Data was last revised on 2017. Basophil pct 0.6 % [facility] Comment: Interpretive Data Percent cell count reference ranges are not reported, since discordance with absolute values may lead to misinterpretation of CBC data. Current Interpretive Data was last revised on 2017. Blood 12/18/2024 3:22 PM CDT 12/18/2024 3:25 PM CDT Jose David Albright MD LAB BLOOD ORDERABLE S Final Result [facility] [address] Department [place] [address] * (ABNORMAL) CBC with auto differential (12/18/2024 3:22 PM CDT) WBC 10.89(H) 3.80 - 9.90 K/cumm Hgb 12.0 11.9 - 15.5 g/dL [facility] Hct 37.9 35.6 - 45.5 % [facility] Plt 369 150 - 400 K/cumm [facility] MPV 9.1 9.1 - 12.3 fL [facility] RBC 4.43 3.90 - 5.20 M/cumm [facility] MCV 85.6 81.3 - 96.4 fL [facility] MCH 27.1 27.1 - 33.3 pg [facility] MCHC 31.7(L) 32.3 - 35.7 g/dL [facility] RDW CV 17.8(H) 11.1 - 14.9 % [facility] RDW SD 55.0(H) 35.7 - 48.1 fL [facility] NRBC abs 0.00 0.00 - 0.01 K/cumm [facility] Blood 12/18/2024 3:22 PM CDT 12/18/2024 3:25 PM CDT Jose David Albright MD LAB BLOOD ORDERABLE S Final Result Performing Organization Address City/[facility]/ZIP Co de Phone Number [address] [place] [place] [address] * Erythrocyte sedimentation rate (12/18/2024 3:22 PM CDT) Pathologist [facility] Erythrocyte sedimentation rate 6 1 - 30 mm/hr Blood 12/18/2024 3:22 PM CDT 12/18/2024 3:25 PM CDT Jose David Albright MD LAB BLOOD ORDERABLE S Final Result Performing Organization Address [facility] Co de Phone Number [address] [place] [address] * CRP (acute phase) (12/18/2024 3:22 PM CDT) Pathologist [facility] CRP 1.1 <=10.0 mg/L Blood 12/18/2024 3:22 PM CDT 12/18/2024 3:25 PM CDT Jose David Albright MD LAB BLOOD ORDERABLE S Final Result Performing Organization Address City/[facility] Co de Phone Number [address] [place] [address] * Creatine kinase (CK), total (12/18/2024 3:22 PM CDT) Pathologist [facility] CK 49 30 - 200 Units/L Blood 12/18/2024 3:22 PM CDT 12/18/2024 3:25 PM CDT us Jose David Albright MD LAB BLOOD ORDERABLE S Final Result [facility] [address] Department [place] [address] * Comprehensive metabolic panel (12/18/2024 3:22 PM CDT) Sodium 137 135 - 145 mmol/L Potassium, pl 4.6 3.3 - 4.9 mmol/L [facility] Comment:Hemolyzed; Potassium value may be falsely elevated by as much as 1.0 mmol/L. Suggest redraw and reanalysis. Chloride 102 97 - 110 mmol/L [facility] CO2 22 22 - 32 mmol/L [facility] Anion gap 13 2 - 15 mmol/L [facility] BUN 21 6 - 25 mg/dL [facility] Creatinine 0.78 0.60 - 1.10 mg/dL [facility] Glucose 171 70 - 199 mg/dL [facility] Comment: Interpretive Data Fasting glucose >/= 126 mg/dl [...] Current interpretive data was last revised 2022. Calcium 9.8 8.5 - 10.3 mg/dL [facility] Bilirubin, total 0.2 0.1 - 1.2 mg/dL [facility] Protein, pl 6.6 6.5 - 8.5 g/dL [facility] Albumin 4.0 3.5 - 5.0 g/dL [facility] Alk phos 73 40 - 130 Units/L [facility] ALT 18 7 - 45 Units/L [facility] AST See Comment 10 - 45 [facility] Comment:Credited; Hemolyzed Specimen Blood 12/18/2024 3:22 PM CDT 12/18/2024 3:25 PM CDT us Jose David Albright MD LAB BLOOD ORDERABLE S Final Result Performing Organization Address City/[facility]/ZIP Co de Phone Number [facility] [address] Department [place] [address] * Hepatitis C antibody Blood (04/25/2024 12:50 PM CDT) Hep C Ab Nonreactive Nonreactive Comment: Interpretive Data Nonreactive: Antibodies to HCV not [...] Interpretive data was last revised on 2019. Blood 04/25/2024 12:5 0 PM CDT 04/25/2024 3:17 PM CDT us Adri Stringer MD LAB MICROBIOLOGY - GENERAL ORDER DARLYN Final Result Performing Organization Address City/[facility] Co de Phone Number [facility] [address] [place] [address] from Last 3 Months or Most Recently Relevant to Health [place] [address] [facility] [place] [address] [facility] MEDICARE ADVANTAGE [facility] CHOICE PLUS [facility] MEDICARE ADVANTAGE Advance Directives For more information, please contact: [phone] * LIMITED - No CPR (Latest Code Status on File) Date Activated Date Inactivated Comments 12/19/2024 12:57 AM 12/20/2024 5:55 PM Question Answer Comments Provide aggressive medical m anagement before a full cardiopulmonary arrest occurs. Use antibiotics, IV Fluids, and medical treatment unless specifically selected below: No intubation Care Teams [employer] Supervisor Relationship Specialty Start Date End Date Kirby Rizvi MD [facility] [address] [address] PCP - General Family Medicine 12/18/24
--- OUTSIDE RECORDS SUMMARY | 2025-01-22 12:09 | XMS_ITS | Patient Health Record ---
Author Organization [facility]ly [email or web address] ([id number]) Address [address] [place] [address] [address] Care Team Providers [employer] Assistant Name Role Phone Jackie Rizvi MD Primary Care Provider Akosua Block Unavailable [phone] Dano Hermosillo Unavailable [phone] Allergies No Known Allergies Results Component Value [...] intl units as directed orally once a day; Duration: 30 day(s) Active Fluticasone Furoate-Vilanterol 200-25 MCG/ACT INHALE 1 PUFF INTO THE LUNGS EVERY DAY; Duration: 90 Active EPIPEN 2-YURY 0.3 mg 0 mg intramuscularly once Active LEVALBUTEROL 45 mcg/inh 2 puff(s) inhale d Q4-6 hours, PRN and per the asthma action plan; Duration: 30 days Active XOLAIR 150 mg 300 mg subcutaneously every 2 weeks; Duration: 30 day(s) Active SINGULAIR 10 mg 1 tab(s) orally once a day (in the evening); Duration: 90 days Active BUSPIRONE 15 mg 1 tab(s) orally 2 times a day; Duration: 30 days Not-Taking ESOMEPRAZOLE 40 mg 1 cap(s) orally once a day; Duration: 30 day(s) Not-Taking METHOTREXATE 2.5 mg 5 tab(s) orally once a week Not-Taking NASAL WASHES N/A as directed intranasally as needed; Duration: 30 Active SPIRIVA RESPIMAT 2.5 mcg/inh 2 puff(s) inhaled once a day; Duration: 90 day(s) Not-Taking VITAMIN D3 5000 intl units as directed orally once a day; Duration: 30 day(s) Not-Taking OLOPATADINE HYDROCHLORIDE 665 mcg/inh 2 spray(s) intranasally twice a day; Duration: 90 days Active FLUTICASONE PROPIONATE 50 mcg/inh 2 sprays intranasally Qday, PRN; Duration: 90 days Not-Taking PREDNISONE 20 mg 2 tab(s) orally once a day; Duration: 4 days 3 Not-Taking DULOXETINE 60 mg 1 cap(s) orally once a day; Duration: 30 day(s) Not-Taking ZYRTEC 10mg 1 tablet PO QD Not -Taking LINZESS 290 mcg 1 cap(s) orally once a day Not-Taking OLOPATADINE HYDROCHLORIDE 665 MCG/INH 2 SPRAY(S) INTRANASALLY BID; Duration: 90 DAYS *Please review for potential replacement for e-prescription and drug interaction check* Not-Taking ZyrTEC 10mg 1 tablet PO QD Act maria teresa SPIRIVA RESPIMAT 60 ACT 2.5 MCG/INH 2 PUFF(S) INHALED ONCE A DAY 90 DAY(S) INHALED ONCE A DAY; Duration: 90 DAYS *Please review for potential replacement for e-prescription and drug interaction check* Not-Taking BREO ELLIPTA 200 mcg-25 mcg/inh 1 puff(s) inhaled once a day; Duration: 30 day(s) Not-Taking Linzess 290 MCG 1 cap(s) orally once a day Not-Taking Spiriva Respimat 2.5 MCG/ACT INHALE 2 PUFFS INTO THE LUNGS EVERY DAY FOR 90 DAYS; Duration: 90 Not-Taking IPRATROPIUM NASAL 42 mcg/inh 2 spray(s) intranasally three times a day; Duration: 30 days Not-Taking VITAMIN B-12 1000 mcg/mL 1ml intramuscularly once a month Active Breo Ellipta 200 MCG-25 MCG/INH 1 PUFF(S) INHALED ONCE A DAY; Duration: 30 DAY(S) *Please review and pick correct strength-formul ation from [employer] options. If intended option is not shown, discontinue and re-order from Quick Search* Not-Taking Gabapentin 100 MG 1 cap(s) orally 3 times a day; Duration: 30 day(s) Not-Taking OXYBUTYNIN 5 mg 1 tab(s) orally QD Active Levalbuterol HCl 45 MCG/INH 2 PUFF(S) INHALED Q4-6 HOURS, PRN AND PER THE ASTHMA ACTION PLAN; Duration: 30 DAYS *Please review and pick correct strength-formul ation from [employer] options. If intended option is not shown, discontinue and re-order from Quick Search* Not-Taking Prolia 60 MG/ML as directed subcutaneously every 6 months; Duration: 12 month(s) Not-Taking ALENDRONATE 70 mg 1 tab(s) orally once a week Active Breo Ellipta 200 MCG-25 MCG/INH INHALE 1 PUFF BY MOUTH EVERY DAY; Duration: 90 *Please review and pick correct strength-formul ation from [employer] options. If intended option is not shown, discontinue and re-order from Quick Search* Not-Taking ASPIR 81 81 mg 1 tab(s) orally once a day Active Levalbuterol HCl 45 MCG/INH 2 PUFF(S) INHALED Q4-6 HOURS, PRN AND PER THE ASTHMA ACTION PLAN; Duration: 30 DAY(S) *Please review and pick correct strength-formul ation from [employer] options. If intended option is not shown, discontinue and re-order from Quick Search* Not-Taking Trelegy Ellipta 200 MCG-62.5 MCG-25 MCG/INH 1 PUFF(S) INHALED ONCE A DAY *Please review and pick correct strength-formul ation from [employer] options. If intended option is not shown, discontinue and re-order from Quick Search* Not-Taking Fluticasone Propionate 50 MCG/ACT 1 SPRAY INTO INTO EACH NOSTRIL TWICE A DAY; Duration: 90 Not-Taking VENLAFAXINE 75 mg 1 tab(s) orally 2 times a day Active Xolair 150 MG INJECT 300 MG SUBCUTANEOUSLY EVERY 2 WEEKS.; Duration: 28 Not-Taking EpiPen 2-Yury 0.3 MG/0.3ML 0 mg intramuscularly once; Duration: 30 day(s) Not-Taking Singulair 10 MG 1 tab(s) orally once a day (in the evening); Duration: 90 day(s) Not-Taking ZyrTEC Allergy 10 MG 1 tablet PO QD Not-Taking Levalbuterol Tartrate 45 MCG/ACT 1 puff as needed Inhalation every 6 hrs; Duration: 30 days Active Hydroxychloroquine Sulfate 200 MG 1 tab(s) orally once a day Active Ritalin 10 MG 1 tab(s) orally 2 times a day; Duration: 30 day(s) Active busPIRone HCl 15 MG 1 tab(s) orally 2 times a day; Duration: 30 days Active Xopenex HFA 45 MCG/ACT 2 puff(s) inhaled Q4-6 hours, PRN and per the asthma action plan; Duration: 90 day(s) Not-Taking hydrOXYzine HCl 10 MG 2 tab(s) orally hs Active Ipratropium [place] 0.06 % 2 spray(s) intranasally three times a day; Duration: 30 days Active EPIPEN 2-YURY 0.3 mg 0 mg intramuscularly once; Duration: 30 day(s) Not-Taking XOPENEX 1.25 MG/3 ML 3 ML BY NEBULIZER TID, PRN; Duration: 30 DAY(S) *Please review for potential replacement for e-prescription and drug interaction check* Active SINGULAIR 10 mg 1 tab(s) orally once a day (in the evening); Duration: 90 day(s) Not-Taking GABAPENTIN 100 mg 1 cap(s) orally 3 times a day; Duration: 30 day(s) Not-Taking PROLIA 60 mg/mL as directed subcutaneously every 6 months; Duration: 12 month(s) Not-Taking Esomeprazole Magnesium 40 MG 1 cap(s) orally once a day; Duration: 30 day(s) Active Singulair 10 MG 1 tab(s) orally once a day (in the evening); Duration: 90 days Not-Taking Methotrexate 2.5 MG 5 TAB(S) ORALLY ONCE A WEEK *Please review and pick correct strength-formul ation from [employer] options. If intended option is not shown, discontinue and re-order from Quick Search* Active predniSONE 20 MG 2 tab(s) orally once a day; Duration: 4 days 3 Not-Taking EpiPen 2-Yury 0.3 MG/0.3ML 0 mg intramuscularly once Active TRELEGY ELLIPTA 200 mcg-62.5 mcg-25 mcg/inh 1 puff(s) inhaled once a day Not-Taking DULoxetine HCl 60 MG 1 cap(s) orally onc e a day; Duration: 30 day(s) Active Aspirin 81 MG 1 [...] (5000 UT) as directed orally once a day; Duration: 30 day(s) Not-Taking Vitamin D3 50 MCG (2000 UT) 1 tab(s) orally once a day Active Xolair 150 MG 300 mg subcutaneously every 2 weeks; Duration: 30 day(s) Active HYDROXYCHLOROQUINE 200 mg 1 tab(s) orally once a day Not-Taking RITALIN 10 mg 1 tab(s) orally 2 times a day; Duration: 30 day(s) Not-Taking HYDROXYZINE hydrochloride 10 mg 2 tab(s) orally hs No t-Taking XOPENEX HFA 45 mcg/inh 2 puff(s) inhaled Q4-6 hours, PRN and per the asthma action plan; Duration: 90 day(s) Not-Taking Fluticasone Propionate 50 MCG/ACT 1 spray in each nostril Nasally Twice a day; Duration: 30 days Active LEVALBUTEROL 45 mcg/inh 2 puff(s) inhale d Q4-6 hours, PRN and per the asthma action plan; Duration: 30 day(s) Not-Taking Turmeric 500 MG as directed Orally Active IPRATROPIUM NASAL 42 mcg/inh 2 spray(s) intranasally three times a day; Duration: 30 days Not-Taking Breo Ellipta 200-25 MCG/ACT 1 puff Inhalation Once a day; Duration: 90 days Active XOLAIR 150 mg INJECT 300 MG SUBCUTANEOUSLY EVERY 2 WEEKS.; Duration: 28 Not-Taking Spiriva Respimat 2.5 MCG/ACT 2 puffs Inhalation Once a day; Duration: 90 days Active BREO ELLIPTA 200 mcg-25 mcg/inh INHALE 1 PUFF BY MOUTH EVERY DAY; Duration: 90 Not-Taking Immunizations Vaccine Route Administration Date [...] Status Risk Notes Problem Shortness of breath (195598869) Shortness of breath (R06.02) Active confirmed Problem Mild cognitive disorder (979512358) Mild cognitive impairment, so stated (G31.84) Active confirmed Problem Chronic allergic conjunctivitis (21892150) Other chronic allergic conjunctivitis (H10.45) Active confirmed Problem Chronic sinusitis (52650571) Chronic sinusitis, unspecified (J32.9) Active confirmed Problem Gastro-esophageal reflux disease without esophagitis (072534413) Gastro-esophageal reflux disease without esophagitis (K21.9) Active confirmed Problem Dizziness and giddiness (284408020) Dizziness and giddiness (R42) Active confirmed Problem Anaphylaxis (34255845) Anaphylactic shock, unspecified, subsequent encounter (T78.2XXD) Active confirmed Problem Anaphylaxis (09488801) Personal history of anaphylaxis (Z87.892) Active confirmed Problem Allergic rhinitis caused by pollen (disorder) (22336189) Allergic rhinitis due to pollen (J30.1) Active confirmed Problem Allergic rhinitis caused by animal hair and dander (749652609519602) Allergic rhinitis due to animal (cat) (dog) hair and dander (J30.81) Active confirmed Problem Allergic rhinitis (32102498) Other allergic rhinitis (J30.89) Active confirmed Problem Uncomplicated severe persistent asthma (744225691) Severe persistent asthma, uncomplicated (J45.50) Active confirmed Problem Chronic allergic conjunctivitis (30372019) Other chronic allergic conjunctivitis (H10.45) Active confirmed Problem Essential hypertension (53092899) Essential (primary) hypertension (I10) Active confirmed Problem Edema (62550493) Edema, unspecified (R60.9) Active confirmed Problem Vitamin D deficiency (36082459) Vitamin D deficiency, unspecified (E55.9) Active confirmed Vital Signs Respiratory Rate 18 /min 02/20/2024 Blood pressure diastolic 75 mm Hg 10/31/2024 Oximetry 96 % 10/31/2024 Height 65.5 in 10/31/2024 Blood pressure systolic 117 mm Hg 10/31/2024 Weight 221.4 lbs 09/23/2024 BMI 36.28 kg/m2 09/23/2024 Encounters Encounter Location Date Provider Diagnosis [address] [address] 02/01/2024 Dano Hermosillo Severe persistent asthma, uncomplicated J45.[address] [address] 02/20/2024 Akosua Joyce Severe persistent asthma, uncomplicated J45.50 ; Gastro-esophageal reflux disease without esophagitis K21.9 ; Allergic rhinitis due to animal (cat) (dog) hair and dander J30.81 ; Allergic rhinitis due to pollen J30.1 ; Other allergic rhinitis J30.89 ; Other chronic allergic conjunctivitis H10.45 ; Chronic sinusitis, unspecified J32.9 ; Vitamin D deficiency, unspecified E55.9 and Essential (primary) hypertension I10 [address] [address] 03/05/2024 Dano Hermosillo Severe persistent asthma, uncomplicated J45.[address] [address] 03/21/2024 Dano Hermosillo Severe persistent asthma, uncomplicated J45.[address] [address] 04/04/2024 Dano Hermosillo Severe persistent asthma, uncomplicated J45.[address] [address] 05/02/2024 Dano Hermosillo Severe persistent asthma, uncomplicated J45.[address] [address] 05/20/2024 Akosua Joyce Severe persistent asthma, uncomplicated J45.50 ; Gastro-esophageal reflux disease without esophagitis K21.9 ; Allergic rhinitis due to animal (cat) (dog) hair and dander J30.81 ; Allergic rhinitis due to pollen J30.1 ; Other allergic rhinitis J30.89 ; Other chronic allergic conjunctivitis H10.45 ; Chronic sinusitis, unspecified J32.9 ; Vitamin D deficiency, unspecified E55.9 and Essential (primary) hypertension I10 [facility] [address] [place] [phone] 06/06/2024 Dano Hermosillo Severe persistent asthma, uncomplicated J45.50 [facility] [address] [place] [phone] 08/12/2024 Akosua Joyce Severe persistent asthma, uncomplicated J45.50 ; Gastro-esophageal reflux disease without esophagitis K21.9 ; Allergic rhinitis due to animal (cat) (dog) hair and dander J30.81 ; Allergic rhinitis due to pollen J30.1 ; Other allergic rhinitis J30.89 ; Other chronic allergic conjunctivitis H10.45 ; Chronic sinusitis, unspecified J32.9 ; Vitamin D deficiency, unspecified E55.9 and Essential (primary) hypertension I10 [facility] [address] [place] [phone] 08/29/2024 Dano Hermosillo Severe persistent asthma, uncomplicated J45.[address] [address] 09/23/2024 Akosua Joyce Severe persistent asthma, uncomplicated J45.50 ; Gastro-esophageal reflux disease without esophagitis K21.9 ; Allergic rhinitis due to animal (cat) (dog) hair and dander J30.81 ; Allergic rhinitis due to pollen J30.1 ; Other allergic rhinitis J30.89 ; Other chronic allergic conjunctivitis H10.45 ; Chronic sinusitis, unspecified J32.9 ; Vitamin D deficiency, unspecified E55.9 and Essential (primary) hypertension I10 [facility] [address] [place] [phone] 10/17/2024 Dano Hermosillo Severe persistent asthma, uncomplicated J45.[address] [address] 10/31/2024 Dano Hermosillo Severe persistent asthma, uncomplicated J45.[address] [address] 08/05/2024 Akosua Joyce [address] [address] 09/04/2024 Akosua Joyce [facility] [address] [place] [phone] 09/09/2024 Akosua Joyce [address] [address] 09/18/2024 Akosua Joyce [facility] [address] [place] [address] 11/05/2024 Akosua Joyce Severe persistent asthma, uncomplicated J45.50 [facility] [address] [place] [phone] 11/13/2024 Akosua Joyce Severe persistent asthma, uncomplicated J45.50 Assessments Encounter Date Diagnosis (ICD Code) Assessment Notes Treatment Notes Treatment Clinical Notes Section Notes 02/01/2024 Severe persistent asthma, uncomplicated (ICD-10 - [...] established with use > 3 weeks. Cathy foremans understanding, wants to continue use. Currently using [...] established with use > 3 weeks. Cathy foremans understanding, wants to continue use. Currently using [...] established with use > 3 weeks. Cathy thorpe understanding, wants to continue use. Currently using [...] established with use > 3 weeks. Cathy thorpe understanding, wants to continue use. 02/20/2024 Allergic rhinitis due to pollen (ICD-10 [...] Borderline protection noted to s. pneumo with protected. Cathy has gotten Pneumovax in the past, is unsure if she has gotten Prevnar-20. She is to contact [facility], where she gets hr vaccines, for vaccination [...] has gotten Prevnar-20. She is to contact [facility], where she gets hr vaccines, for vaccination [...] has gotten Prevnar-20. She is to contact [facility], where she gets hr vaccines, for vaccination [...] Borderline protection noted to s. pneumo with 16 protected. Cathy has gotten Pneumovax in the past, is unsure if she has gotten Prevnar-20. She is to contact [facility], where she gets hr vaccines, for vaccination record. Consider additional booster pending record review. - Cathy has since obtained boosters, repeat titers now show adequate protection to s. pneumo. H. influenzae titers remain inadequate, though did increase with HiB booster. Discussed obtaining additional booster, if HiB protection remains inadequate, consider SADNI. Cathy has yet to receive booster 02/20/2024 Vitamin D deficiency, unspecified (ICD-10 - [...] (23 Serotype) 4 COVID-19 TESTING (Hospital-based PCR) Next Appt Details Provider Name:Dano Hermosillo , 01/23/2025 12:30:00 PM, [address] [facility], [address], [place], [address], Insurance Providers Payer Name Payer Address Payer Phone Subscriber Number Group Number Insured Name Patient Relationship to Insured Coverage Start Date Coverage End Date [employer] [address] [address] [place] [address] [phone] [id number] Sheila Daily Self - patient is the [...]
--- OUTSIDE RECORDS SUMMARY | 2025-01-22 12:09 | XMS_ITS | Referral Summary ---
Author Organization [facility] Medical Office Building B Address [address] [place] [address] Care Team Providers Care Fermentation Operator Name Role Phone Kirby Rizvi MD Primary Care Provider [phone] Encounters Date Type Department Care Team Description 12/18/2024 4:46 PM CDT - 12/20/2024 1:50 PM CDT Hospital Encounter [address] [place] [address] Jose David Albright MD Patel, Satyen V., [...] Chronic obstructive pulmonary disease, unspecified COPD type (HCC); Gastroesophageal reflux disease without esophagitis; Stage 2 chronic kidney disease; Chronic pain syndrome; Obstructive sleep apnea on CPAP; Generalized anxiety disorder with panic attacks; Anxiety and depression; Class 2 severe obesity due to excess calories with serious comorbidity and body mass index (BMI) of 39.0 to 39.9 in adult (HCC) Discharge Disposition: Discharge to home or self care from Last 3 Months Allergies No known active allergies Medications TiZANidine [...] Rocephin Pending follow-up of urine culture results Social History Tobacco Use Types Packs/Day Years Used Date Smoking Tobacco: Former Cigarettes 0.6 60.5 S tarted: 1965 Smokeless Tobacco: Never Tobacco Cessation:Counseling Given: Not Answered [facility] Utilities Answer Date Recorded In the past 12 months has th e [employer], gas, oil, or water company threatened to shut off services in your [...] often do you attend chur ch or sikhism services? 1 to 4 times per year 12/19/2024 Do you belong to any clubs o r organizations such as evangelical groups, unions, fraternal or athletic groups, or [...] any time in the past 12 m [facility], were you homeless or living in a residential (including now)? No 12/19/2024 Personal Safety Answer Date Recorded Have you ever been in or are you currently in a harmful physical or emotional relationship or is someone making you feel afraid or unsafe? 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 Gender Identity Not on file Sexual Orientation Not on file Last Filed Vital Signs Vital Sign Reading [...] 12/19/2024 1:30 AM CDT Plan of Treatment Not on file Procedures Procedure Name Priority Date/Time Associated Diagnosis [...] Ann MD LAB BLOOD ORDERABLES Final Result [facility] [address] [facility] [place] [address] * (ABNORMAL) Differential, auto (12/20/2024 5:43 AM CDT) Neutrophil abs 6.57(H) 1.50 - 6.50 K/cumm Imm gran abs 0.06 0.00 - 0.10 K/cumm [facility] Lymphocyte abs 4.65(H) 0.80 - 3.30 K/cumm [facility] Monocyte abs 1.18(H) 0.20 - 0.80 K/cumm [facility] Eosinophil abs 0.26 0.00 - 0.50 K/cumm [facility] Basophil abs 0.07 0.00 - 0.10 K/cumm [facility] Neutrophil pct 51.4 % [facility] Comment: Interpretive Data Percent cell count reference ranges are not reported, since discordance with absolute values may lead to misinterpretation of CBC data. Current Interpretive Data was last revised on 2017. Imm gran pct 0.5 % [facility] Comment: Interpretive Data Percent cell count reference ranges are not reported, since discordance with absolute values may lead to misinterpretation of CBC data. Current Interpretive Data was last revised on 2017. Lymphocyte pct 36.4 % [facility] Comment: Interpretive Data Percent cell count reference ranges are not reported, since discordance with absolute values may lead to misinterpretation of CBC data. Current Interpretive Data was last revised on 2017. Monocyte pct 9.2 % [facility] Comment: Interpretive Data Percent cell count reference ranges are not reported, since discordance with absolute values may lead to misinterpretation of CBC data. Current Interpretive Data was last revised on 2017. Eosinophil pct 2.0 % [facility] Comment: Interpretive Data Percent cell count reference ranges are not reported, since discordance with absolute values may lead to misinterpretation of CBC data. Current Interpretive Data was last revised on 2017. Basophil pct 0.5 % [facility] Comment: Interpretive Data Percent cell count reference ranges are not reported, since discordance with absolute values may lead to misinterpretation of CBC data. Current Interpretive Data was last revised on 2017. Blood 12/20/2024 5:43 AM CDT 12/20/2024 6:27 AM CDT Cassandra Lopez MD LAB BLOOD ORDERABLES Final Re sult Performing Organization Address [facility]/ZIP Co de Phone Number [address] [place] [address] * (ABNORMAL) Iron profile w/ IBC (12/20/2024 5:43 AM CDT) Pathologist [facility] Iron 37 35 - 145 mcg/dL TIBC 405(H) 250 - 400 mcg/dL [facility] Transferrin saturation 9(L) 20 - 50 % [facility] Blood 12/20/2024 5:43 AM CDT 12/20/2024 6:26 AM CDT Elke Ann MD LAB BLOOD ORDERABLES Final Result Performing Organization Address [facility] Co de Phone Number [address] [address] * (ABNORMAL) CBC with auto differential (12/20/2024 5:43 AM CDT) WBC 12.79(H) 3.80 - 9.90 K/cumm Hgb 11.6(L) 11.9 - 15.5 g/dL [facility] Hct 38.1 35.6 - 45.5 % [facility] Plt 385 150 - 400 K/cumm [facility] MPV 9.5 9.1 - 12.3 fL [facility] RBC 4.36 3.90 - 5.20 M/cumm [facility] MCV 87.4 81.3 - 96.4 fL [facility] MCH 26.6(L) 27.1 - 33.3 pg [facility] MCHC 30.4(L) 32.3 - 35.7 g/dL [facility] RDW CV 18.6(H) 11.1 - 14.9 % [facility] RDW SD 57.6(H) 35.7 - 48.1 fL [facility] NRBC abs 0.00 0.00 - 0.01 K/cumm [facility] Blood 12/20/2024 5:43 AM CDT 12/20/2024 6:27 AM CDT Cassandra Lopez MD LAB BLOOD ORDERABLES Final Re sult Performing Organization Address City/[facility]/ZIP Co de Phone Number [address] [email or web address] [address] * (ABNORMAL) Ferritin (12/20/2024 5:43 AM CDT) Pathologist [facility] Ferritin 11(L) 15 - 150 ng/mL Blood 12/20/2024 5:43 AM CDT 12/20/2024 6:26 AM CDT Elke Ann MD LAB BLOOD ORDERABLES Final Result Performing Organization Address City/[facility] Co de Phone Number [address] [email or web address] [address] * Vitamin B12 (12/20/2024 5:43 AM CDT) Vitamin B12 1,210 230 - 1,250 pg/mL Blood 12/20/2024 5:43 AM CDT 12/20/2024 6:26 AM CDT Elke Ann MD LAB BLOOD ORDERABLES Final Result Performing Organization Address City/[facility]/ZIP Co de Phone Number [address] [employer] [place] [address] * Basic metabolic panel (12/20/2024 5:43 AM CDT) Sodium 142 135 - 145 mmol/L Potassium, pl 4.0 3.3 - 4.9 mmol/L [facility] Chloride 106 97 - 110 mmol/L [facility] CO2 23 22 - 32 mmol/L [facility] Anion gap 13 2 - 15 mmol/L [facility] BUN 20 6 - 25 mg/dL [facility] Creatinine 0.78 0.60 - 1.10 mg/dL [facility] Glucose 127 70 - 199 mg/dL [facility] Comment: Interpretive Data Fasting glucose >/= [...] 2022. Calcium 9.8 8.5 - 10.3 mg/dL [facility] Blood 12/20/2024 5:43 AM CDT 12/20/2024 6:26 AM CDT us Elke Ann MD LAB BLOOD ORDERABLES Final Result Performing Organization Address [facility]/ZIP Co de Phone Number [facility] [address] [facility] Department [place] [address] * POCT glucose (12/19/2024 11:11 AM CDT) Glucose, POC 157 70 - 199 mg/dL Glucose comment 1 RN/MD Notified [facility] Blood 12/19/2024 11:1 1 AM CDT 12/19/2024 11:11 AM CDT Elke Ann MD LAB POCT ORDERABLES - DEVICE Final Result [facility] [place] [employer] [place] [address] * POCT glucose (12/19/2024 7:49 AM CDT) Glucose, POC 131 70 - 199 mg/dL Glucose comment 1 RN/MD Notified [facility] Blood 12/19/2024 7:49 AM CDT 12/19/2024 7:49 AM CDT us Elke Ann MD LAB POCT ORDERABLES - DEVICE Final Result Performing Organization Address [facility] de Phone Number [address] [address] * eGFR (12/19/2024 4:28 AM CDT) eGFR [...] ORDERABLES Final Re sult Performing Organization Address [facility] Co de Phone Number [place] [address] [facility] [place] [address] * (ABNORMAL) Differential, auto (12/19/2024 4:28 AM CDT) Neutrophil abs 8.27(H) 1.50 - 6.50 K/cumm Imm gran abs 0.08 0.00 - 0.10 K/cumm [facility] Lymphocyte abs 0.75(L) 0.80 - 3.30 K/cumm [facility] Monocyte abs 0.38 0.20 - 0.80 K/cumm [facility] Eosinophil abs 0.00 0.00 - 0.50 K/cumm [facility] Basophil abs 0.02 0.00 - 0.10 K/cumm [facility] Neutrophil pct 87.1 % [facility] Comment: Interpretive Data Percent cell count reference ranges are not reported, since discordance with absolute values may lead to misinterpretation of CBC data. Current Interpretive Data was last revised on 2017. Imm gran pct 0.8 % [facility] Comment: Interpretive Data Percent cell count reference ranges are not reported, since discordance with absolute values may lead to misinterpretation of CBC data. Current Interpretive Data was last revised on 2017. Lymphocyte pct 7.9 % [facility] Comment: Interpretive Data Percent cell count reference ranges are not reported, since discordance with absolute values may lead to misinterpretation of CBC data. Current Interpretive Data was last revised on 2017. Monocyte pct 4.0 % [facility] Comment: Interpretive Data Percent cell count reference ranges are not reported, since discordance with absolute values may lead to misinterpretation of CBC data. Current Interpretive Data was last revised on 2017. Eosinophil pct 0.0 % [facility] Comment: Interpretive Data Percent cell count reference ranges are not reported, since discordance with absolute values may lead to misinterpretation of CBC data. Current Interpretive Data was last revised on 2017. Basophil pct 0.2 % [facility] Comment: Interpretive Data Percent cell count reference ranges are not reported, since discordance with absolute values may lead to misinterpretation of CBC data. Current Interpretive Data was last revised on 2017. Blood 12/19/2024 4:28 AM CDT 12/19/2024 5:05 AM CDT us Cassandra Lopez MD LAB BLOOD ORDERABLES Final Re sult Performing Organization Address City/[facility]/ZIP Co de Phone Number [address] [address] * Thyroid Function [place] (12/19/2024 4:28 AM CDT) Pathologist [facility] TSH 1.93 0.30 - 4.20 mcIUnit/mL Blood 12/19/2024 4:28 AM CDT 12/19/2024 5:06 AM CDT Elke Ann MD LAB BLOOD ORDERABLES Final Result Performing Organization Address [facility] Co de Phone Number [address] [address] * (ABNORMAL) CBC with auto differential (12/19/2024 4:28 AM CDT) Pathologist [facility] WBC 9.50 3.80 - 9.90 K/cumm Hgb 11.0(L) 11.9 - 15.5 g/dL [facility] Hct 34.4(L) 35.6 - 45.5 % [facility] Plt 364 150 - 400 K/cumm [facility] MPV 9.0(L) 9.1 - 12.3 fL [facility] RBC 4.10 3.90 - 5.20 M/cumm [facility] MCV 83.9 81.3 - 96.4 fL [facility] MCH 26.8(L) 27.1 - 33.3 pg [facility] MCHC 32.0(L) 32.3 - 35.7 g/dL [facility] RDW CV 18.1(H) 11.1 - 14.9 % [facility] RDW SD 54.4(H) 35.7 - 48.1 fL [facility] NRBC abs 0.00 0.00 - 0.01 K/cumm [facility] Blood 12/19/2024 4:28 AM CDT 12/19/2024 5:05 AM CDT Cassandra Lopez MD LAB BLOOD ORDERABLES Final Re sult Performing Organization Address [facility] Co de Phone Number [facility] [address] [facility] Department [place] [address] * Basic metabolic panel (12/19/2024 4:28 AM CDT) [facility] Sodium 140 135 - 145 mmol/L Potassium, pl 4.7 3.3 - 4.9 mmol/L [facility] Chloride 105 97 - 110 mmol/L [facility] CO2 26 22 - 32 mmol/L [facility] Anion gap 9 2 - 15 mmol/L [facility] BUN 23 6 - 25 mg/dL [facility] Creatinine 0.71 0.60 - 1.10 mg/dL [facility] Glucose 121 70 - 199 mg/dL [facility] Comment: Interpretive Data Fasting glucose >/= [...] 2022. Calcium 9.9 8.5 - 10.3 mg/dL [facility] Blood 12/19/2024 4:28 AM CDT 12/19/2024 5:06 AM CDT Cassandra Lopez MD LAB BLOOD ORDERABLES Final Re sult Performing Organization Address City/[facility]/ZIP Co de Phone Number [facility] [address] [facility] Department [place] [address] * MRI Lumbar Spine WO Contrast (12/18/2024 7:48 PM CDT) Anatomical Region Laterality Modality Spine N/A Magnetic Resonan ce 12/18/2024 10:2 9 PM CDT Narrative 12/18/2024 10:38 PM CDT EXAM DESCRIPTION: MRI LUMBAR SPINE WO CONTRAST REASON FOR STUDY: Low back pain, cauda equina syndrome suspected Pt presents to ED for multiple medical complaints x 5 days Pt was seen at [place] and got a left hip XR, that [...] arthropathy and ligamentum flavum hypertrophy resulting in qvnc-vf-teynjrtt central canal stenosis, mild right and moderate to severe left neural foraminal narrowing. L5-S1: There is a small broad-based disc bulge and mild facet arthropathy. The disc bulge extends into the neural foramina bilaterally resulting in moderate right and nrdu-ho-xaaniskc left neural foraminal narrowing. IMPRESSION: Dczs-ey-tammbtyq multilevel degenerative disc disease and facet arthropathy [...] Alice Lal M.D. SN T: Report ID: [id number] Reading Location: [id number] Procedure Note Mary Alice Lal MD - 12/18/2024 EXAM DESCRIPTION: MRI LUMBAR SPINE WO CONTRAST REASON FOR STUDY: Low back pain, cauda equina syndrome suspected Pt presents to ED for multiple medical complaints x 5 days Pt was seen[place] and got a left hip XR, that [...] facet arthropathyand ligamentum flavum hypertrophy resulting in ivul-ob-yhritnbe central canal stenosis, mild right and moderate to severe left neural foraminalnarrowing. L5-S1: There is a small broad-based disc bulge and mild facetarthropathy. The disc bulge extends into the neural foramina bilaterally resulting in moderate right and pldx-io-nhvimkac left neural foraminal narrowing. IMPRESSION: Cdul-cv-cpjspddl multilevel degenerative disc disease and facetarthropathy resulting [...] Alice Lal M.D. SN T: Report ID: [id number] Reading Location: [place] [address] Jose David Albright MD IMG MRI PROCEDURES Final Result * CT Recon [...] x 5 days Pt was seen at [place] and got a left hip XR, that [...] seen as a discrete structure. No inflammatory change management consultant the expected bed. Gastric bypass. PERITONEUM: Tiny [...] CT lumbar spine demonstrates no acute fracture. Hrxa-li-ariripqa spondylosis. THIS IS AN ELECTRONICALLY VERIFIED FINAL REPORT 12/18/2024 9:25 PM - Electronically signed by Kirby STARK T: Report ID: [id number] Reading Location: [id number] Procedure Note Kirby Apodaca MD - 12/18/2024 EXAM DESCRIPTION: CT RECON LUMBAR SPINE W CONTRAST; CT ABDOMEN PELVIS W CONTRAST REASON FOR STUDY: left low back pain radiating down left leg multiple medical complaints x 5 days Pt was seen at [facility] left hip XR, that showed [...] seen as a discrete structure. No inflammatory change management consultant the expected bed. Gastric bypass. PERITONEUM: Tiny [...] CT lumbar spine demonstrates no acute fracture. Jlga-vg-wyeewkaadfnilvyjcxz. THIS IS AN ELECTRONICALLY VERIFIED FINAL REPORT 12/18/2024 9:25 PM - Electronically signed by Kirby Apodaca M.D. MJ T: Report ID: [id number] Reading Location: [id number] Wandy Juarez NP IMG CT PROCEDURES Final [...] x 5 days Pt was seen at [place] and got a left hip XR, that [...] seen as a discrete structure. No inflammatory change management consultant the expected bed. Gastric bypass. PERITONEUM: Tiny [...] CT lumbar spine demonstrates no acute fracture. Ihhe-ij-orgrxuhq spondylosis. THIS IS AN ELECTRONICALLY VERIFIED FINAL REPORT 12/18/2024 9:25 PM - Electronically signed by Kirby Apodaca M.D. MJ T: Report ID: [id number] Reading Location: [id number] Procedure Note Kirby Apodaca MD - 12/18/2024 EXAM DESCRIPTION: CT RECON LUMBAR SPINE W CONTRAST; CT ABDOMEN PELVIS W CONTRAST REASON FOR STUDY: left low back pain radiating down left leg multiple medical complaints x 5 days Pt was seen at [facility] left hip XR, that showed [...] seen as a discrete structure. No inflammatory change management consultant the expected bed. Gastric bypass. PERITONEUM: Tiny [...] CT lumbar spine demonstrates no acute fracture. Mgro-yw-avuyyolvhiuwbdefnbg. THIS IS AN ELECTRONICALLY VERIFIED FINAL REPORT 12/18/2024 9:25 PM - Electronically signed by Kirby Apodaca M.D. MJ T: Report ID: [id number] Reading Location: [place] [address] us Wandy Juarez MECHANICAL INTEGRITY SPECIALIST IMG CT PROCEDURES Final Result * (ABNORMAL) Urinalysis reflex to microscopic and culture Urine (12/18/2024 3:43 PM CDT) Color, ur Yellow Yellow Clarity, ur Clear Clear [facility] Specific gravity, ur 1.008 1.003 - 1.[address] [facility] pH, urine 5.5 [facility] Comment: Interpretive Data U rine pH is affected by diet, medications, systemic acid-base disturbances, and renal tubular function. pH may affect urinary stone formation. For example, urine pH below 6.0 may help reduce the tendency for calcium phosphate stones and pH greater than 6.0 may reduce the tendency for uric acid stone formation. Source: [facility] [employer] Current Interpretive Data was last revised on 2017 Protein, ur ql Negative Negative [facility] Glucose, ur ql Negative Negative [facility] Ketones, ur Negative Negative [facility] Bilirubin, ur Negative Negative [facility] Blood, ur Negative Negative [facility] Urobilinogen, ur <2.0 <2.0 mg/dL [facility] Nitrite, ur Positive(A) Negative [facility] Leukocyte esterase, ur 2+(A) Negative [facility] UA reflex comment Reflex to microscopic UA will be performed. [facility] Urine 12/18/2024 3:43 PM CDT 12/18/2024 3:45 PM CDT us Jose David Albright MD LAB MICROBIOLOGY - GENERAL ORDERABLES Final Result [facility] [address] [place] [address] Department [place] [address] * (ABNORMAL) Urinalysis, microscopic only (12/18/2024 3:43 PM CDT) WBC, ur 6-10(A) 0 - 5 /HPF RBC, ur 0-2 0 - 2 /HPF [facility] Culture Reflex Comment Reflex conditions for urine culture (WBC >10) not met. [facility] Urine 12/18/2024 3:43 PM CDT 12/18/2024 3:45 PM CDT us Jose David Albright MD LAB URINE ORDERABLE S Final Result [facility] [address] [place] [address] * (ABNORMAL) Urine culture Urine, bladder (12/18/2024 3:43 PM CDT) Report Final Report: Greater than or equal to 100,000 colonies/mL of Escherichia coli Plus growth of clinically insignificant bacterial vandana. (.) Comment:Testing performed by : [facility], [address] [place] [address] Organism ESCHERICHIA COLI [facility] Organism PLUS GROWTH OF CLINICALLY INSIGNIFICANT VANDANA. [facility] Urine, bladder 12/18/2024 3: 43 PM CDT 12/19/2024 5:11 AM CDT Narrative [facility] - 12/21/2024 10:25 AM CDT Indications for Culture:->Other (specify) Other Indication:->nitrite +, 2+ leuks and 6-10 WBC Testing performed by [facility] ([phone]) Organism Antibiotic Method Susceptibility Escherichia coli Ampicillin [...] MICROBIOLOGY - GENER AL ORDERABLES Final Result Performing Organization Address City/[facility]/ZIP Co de Phone Number [facility]RI[facility] [address] [place] [address] * eGFR (12/18/2024 3:22 PM CDT) Pathologist [facility] eGFR 79 >=60 mL/min/1. 73 m2 Comment: [...] ORDERABLE S Final Result Performing Organization Address City/[facility]/ZIP Co de Phone Number [address] Department [place] [address] * (ABNORMAL) Differential, auto (12/18/2024 3:22 PM CDT) [facility] Neutrophil abs 6.48 1.50 - 6.50 K/cumm Imm gran abs 0.06 0.00 - 0.10 K/cumm [facility] Lymphocyte abs 3.01 0.80 - 3.30 K/cumm [facility] Monocyte abs 0.98(H) 0.20 - 0.80 K/cumm [facility] Eosinophil abs 0.29 0.00 - 0.50 K/cumm [facility] Basophil abs 0.07 0.00 - 0.10 K/cumm [facility] Neutrophil pct 59.5 % [facility] Comment: Interpretive Data Percent cell count reference ranges are not reported, since discordance with absolute values may lead to misinterpretation of CBC data. Current Interpretive Data was last revised on 2017. Imm gran pct 0.6 % [facility] Comment: Interpretive Data Percent cell count reference ranges are not reported, since discordance with absolute values may lead to misinterpretation of CBC data. Current Interpretive Data was last revised on 2017. Lymphocyte pct 27.6 % [facility] Comment: Interpretive Data Percent cell count reference ranges are not reported, since discordance with absolute values may lead to misinterpretation of CBC data. Current Interpretive Data was last revised on 2017. Monocyte pct 9.0 % [facility] Comment: Interpretive Data Percent cell count reference ranges are not reported, since discordance with absolute values may lead to misinterpretation of CBC data. Current Interpretive Data was last revised on 2017. Eosinophil pct 2.7 % [facility] Comment: Interpretive Data Percent cell count reference ranges are not reported, since discordance with absolute values may lead to misinterpretation of CBC data. Current Interpretive Data was last revised on 2017. Basophil pct 0.6 % [facility] Comment: Interpretive Data Percent cell count reference ranges are not reported, since discordance with absolute values may lead to misinterpretation of CBC data. Current Interpretive Data was last revised on 2017. Blood 12/18/2024 3:22 PM CDT 12/18/2024 3:25 PM CDT us Jose David Albright MD LAB BLOOD ORDERABLE S Final Result [facility] [address] [facility] Department [place] [address] * (ABNORMAL) CBC with auto differential (12/18/2024 3:22 PM CDT) [facility] WBC 10.89(H) 3.80 - 9.90 K/cumm Hgb 12.0 11.9 - 15.5 g/dL [facility] Hct 37.9 35.6 - 45.5 % [facility] Plt 369 150 - 400 K/cumm [facility] MPV 9.1 9.1 - 12.3 fL [facility] RBC 4.43 3.90 - 5.20 M/cumm [facility] MCV 85.6 81.3 - 96.4 fL [facility] MCH 27.1 27.1 - 33.3 pg [facility] MCHC 31.7(L) 32.3 - 35.7 g/dL [facility] RDW CV 17.8(H) 11.1 - 14.9 % [facility] RDW SD 55.0(H) 35.7 - 48.1 fL [facility] NRBC abs 0.00 0.00 - 0.01 K/cumm [facility] Blood 12/18/2024 3:22 PM CDT 12/18/2024 3:25 PM CDT Jose David Albright MD LAB BLOOD ORDERABLE S Final Result Performing Organization Address [facility] Co de Phone Number [address] [place] [address] * Erythrocyte sedimentation rate (12/18/2024 3:22 PM CDT) [facility] Erythrocyte sedimentation rate 6 1 - 30 mm/hr Blood 12/18/2024 3:22 PM CDT 12/18/2024 3:25 PM CDT Jose David Albright MD LAB BLOOD ORDERABLE S Final Result Performing Organization Address [facility] Co de Phone Number [address] [place] [address] * CRP (acute phase) (12/18/2024 3:22 PM CDT) [facility] CRP 1.1 <=10.0 mg/L Blood 12/18/2024 3:22 PM CDT 12/18/2024 3:25 PM CDT Jose David Albright MD LAB BLOOD ORDERABLE S Final Result Performing Organization Address [facility] Co de Phone Number [address] [place] [address] * Creatine kinase (CK), total (12/18/2024 3:22 PM CDT) [facility] CK 49 30 - 200 Units/L Blood 12/18/2024 3:22 PM CDT 12/18/2024 3:25 PM CDT Jose David Albright MD LAB BLOOD ORDERABLE S Final Result Performing Organization Address [facility] Phone Number [address] [address] * Comprehensive metabolic panel (12/18/2024 3:22 PM CDT) [facility] Sodium 137 135 - 145 mmol/L Potassium, pl 4.6 3.3 - 4.9 mmol/L [facility] Comment:Hemolyzed; Potassium value may be falsely elevated by as much as 1.0 mmol/L. Suggest redraw and reanalysis. Chloride 102 97 - 110 mmol/L [facility] CO2 22 22 - 32 mmol/L [facility] Anion gap 13 2 - 15 mmol/L [facility] BUN 21 6 - 25 mg/dL [facility] Creatinine 0.78 0.60 - 1.10 mg/dL [facility] Glucose 171 70 - 199 mg/dL [facility] Comment: Interpretive Data Fasting glucose >/= [...] classification and Diagnosis of Diabetes Diabetes Care 202; 46: S19-S40. Current interpretive data was last revised 2022. Calcium 9.8 8.5 - 10.3 mg/dL [facility] Bilirubin, total 0.2 0.1 - 1.2 mg/dL [facility] Protein, pl 6.6 6.5 - 8.5 g/dL [facility] Albumin 4.0 3.5 - 5.0 g/dL [facility] Alk phos 73 40 - 130 Units/L [facility] ALT 18 7 - 45 Units/L [facility] AST See Comment [facility] Comment:Credited; Hemolyzed Specimen Blood 12/18/2024 3:22 PM CDT 12/18/2024 3:25 PM CDT Jose David Albright MD LAB BLOOD ORDERABLE S Final Result Performing Organization Address [facility] Co de Phone Number [facility] [address] [facility] Department [place] [address] * Hepatitis C antibody Blood (04/25/2024 12:50 PM CDT) Pathologist [facility] Hep C Ab Nonreactive Nonreactive Comment: Interpretive [...] 0 PM CDT 04/25/2024 3:17 PM CDT Adri Stringer MD LAB MICROBIOLOGY - GENERAL ORDER DARLYN Final Result Performing Organization Address City/[facility]/ZIP Co de Phone Number [facility] [address] [place] [address] from Last 3 Months or Most Recently Relevant to Health Maintenance Insurance [facility] MEDICARE ADVANTAGE [facility] MEDIC[facility]AGE [facility] CHOICE PLUS [facility] MEDICARE ADVANTAGE Advance Directives For more information, please contact: [phone] * LIMITED - No CPR (Latest Code Status on File) Date Activated Date Inactivated Comments 12/19/2024 12:57 AM 12/20/2024 5:55 PM Question Answer Comments Provide aggressive medical m anagement before a full cardiopulmonary arrest occurs. 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
--- OUTSIDE RECORDS SUMMARY | 2025-01-22 12:09 | XMS_ITS | Continuity of Care Document ---
Author Organization [facility] Address [address] [place] [address] Phone Care Team Providers Care Pulley Man Name Role Phone RCM, Rendering Unavailable Unavailable Allergies, Adverse Reactions, Alerts Substance Reaction Status Criticality No Known Drug Allergies Active No I nformation Advance Directives Directive Yes / No Effective Date File Name No Information Encounters Encounter Description Practice Location Reason(s) For Visit Diagnoses Date Provider Providers Copied on Encounter [facility] , [address] [place], [place], [id number], [place] tel:[phone] [facility] Location No Information [facility] Rendering. [address] [place], [address], [place]. tel:[phone] Family History Family Member Type Diagnosis Age At Onset No Information Payers Payer name Insurance type Covered libertarian ID Authoriza tion(s) No Information Social History [...]
--- OUTSIDE RECORDS SUMMARY | 2025-01-22 12:09 | XMS_ITS | Patient Health Record ---
Author Organization [facility] misha Address [address] [facility] [address] [place] [address] Care Team Providers Care Marine Service Manager Name Role Phone Dmitri GAITAN, Jackie Primary Care Provider Floridalma StringerIngridg Unavailable [phone] Allergies Allergen (clinical drug ingredient) Drug/Non Drug Allergy documented on EMR Reaction Allergy Type Onset Date Status Adhesive Unknown Allergy Active Non-steroidal anti-inflammatory agent (FN) NSAIDs abdominal pain Drug Allergy Active Results Component Value Reference Range Notes eGFR Reviewed date:04/25/2024 04:40:30 PM Interpretation: Performing Lab:[facility] , [address] [facility] [address] Notes/Report: eGFR 83 >=60 mL/min/1.73 m2 Interpretive [...] Reviewed date:04/25/2024 04:38:07 PM Interpretation: [facility] , [address] [place] [address]. [facility] [address] Notes/Report: WBC, Ur 21-50 0-5 /HPF RBC, Ur 0-2 0-2 /HPF Epithl Squam, Ur 1-5 0-5 /HPF Culture reflex comment See Below Reflex to urine cult ure will be performed. Culture, Urine-cvs Reviewed date:04/27/2024 11:09:19 AM Interpretation: Performing Lab:[facility] , [address] [place] [address]. [facility] [address] Notes/Report: Urine culture reflexed based upon urinalysis results. ORDER COMMENTS Specimen source: UR C URINE SEE BELOW C URINE Final [...] S C URINE Trimethoprim with Sulfamethoxazole S ALLISON Screen Reviewed date:04/26/2024 03:11:38 PM Interpretation: Performing Lab:[facility] , [address] [place] [address]. [facility] [address] Notes/Report: ALLISON Screen Negative Negative Interpretive Data Positive Screens will be reflexed to specific testing for Antibodies against the following antigens: [place]-1 Ab, FIELD REVIEWER Ab, Scl-70 Ab, Carmona Ab, SS-A/Ro Ab, and SS-B/La Ab. Further testing for dsDNA, Centromere, or Ribosomal P antibodies is suggested in patient with a positive screen and negative specific antibodies. Current interpretive data was last revised on 2023. DS DNA Reviewed date:04/26/2024 03:11:38 PM Interpretation: Performing Lab:[facility] , [address] [place] [address]. [facility] [address] Notes/Report: Double Stranded DNA, Tashi 1.0 <=4.0 IUnits/mL Interpretive Data Negative: < or = 4 IUnits/mL Indeterminate: 5 - 9 IUnits/mL Positive: > or = 10 IUnits/mL Current interpretive data was last revised on 2016. Differential Automated Reviewed date:04/25/2024 04:38:06 PM Interpretation: Performing Lab:[facility] , [address] [facility] [place] [address] Notes/Report: Neut Abs 5.6 1.5-6.5 K/cumm ImmGran Abs 0.0 0.0-0.1 K/cumm Lymphocyte Abs 1.7 0.8-3.3 K/cumm [place] Abs 0.9 0.2-0.8 K/cumm Eos Abs 0.5 [...] Interpretive Data was last revised on 2017. [place] Pct 10.3 Interpretive Data Percent cell count [...] Interpretive Data was last revised on 2017. UA, reflex Micro to Culture Reviewed date:04/25/2024 04:38:07 PM Interpretation: Performing Lab:[facility] , [address] [facility] [place] [address] Notes/Report: Color, Ur Yellow Yellow Clarity, Ur [...] tendency for uric acid stone formation. Source: [facility] [employer] Current Interpretive Data was last revised on [...] Ab Reviewed date:04/26/2024 11:50:43 AM Interpretation: Performing Lab:[facility] , [address] [place] [address]. [facility] [address] Notes/Report: SS B Antibody <0.2 <=0.9 Ab Index Interpretive Data Negative: < 1.0 Ab Index Positive: > or = 1.0 Ab Index Current interpretive data was last revised on 2016. SSA Ab Reviewed date:04/26/2024 11:50:43 AM Interpretation: Performing Lab:[facility] , [address] [place] [address] [facility] [address] Notes/Report: SS A Antibody <0.2 <=0.9 Ab Index Interpretive Data Negative: < 1.0 Ab Index Positive: > or = 1.0 Ab Index Current interpretive data was last revised on 2016. Carmona Ab. Reviewed date:04/26/2024 11:50:42 AM Interpretation: Performing Lab:[facility] , [facility]. [facility] [address] Notes/Report: Carmona Antibody <0.2 <=0.9 Ab Index Interpretive Data Negative: < 1.0 Ab Index Positive: > or = 1.0 Ab Index Current interpretive data was last revised on 2016. Sed Rate Reviewed date:04/25/2024 04:46:37 PM Interpretation: Performing Lab:[facility] , [address] [place] [address] Notes/Report: ESR 10 1-30 mm/hr SCL 70 Antibodies Reviewed date:04/26/2024 11:50:42 AM Interpretation: Performing Lab:[facility] , [address] [place] [address] Notes/Report: Scl 70 Ab, IgG <0.2 <=0.9 Ab Index Interpretive Data Negative: < 1.0 Ab Index Positive: > or = 1.0 Ab Index Current interpretive data was last revised on 2016. Ribonuclear Protein (FIELD REVIEWER) Ab Reviewed date:04/26/2024 11:50:42 AM Interpretation: Performing Lab:[facility] , [address] [place] [address] Notes/Report: FIELD REVIEWER Antibody <0.2 <=0.9 Ab Index Interpretive Data Negative: < 1.0 Ab Index Positive: > or = 1.0 Ab Index Current interpretive data was last revised on 2016. Rheumatoid Factor Reviewed date:04/25/2024 04:42:28 PM Interpretation: Performing Lab:[facility] , [address] [place] [address] Notes/Report: RF, Tashi 10 <=15 IUnits/mL Hep C AB Reviewed date:04/25/2024 04:38:07 PM Interpretation: Performing Lab:[facility] , [address] [place] [address] Notes/Report: Hepatitis C Antibody Nonreactive Nonreactive Interpretive [...] AG Reviewed date:04/25/2024 04:38:07 PM Interpretation: Performing Lab:[facility] , [address] [place] [address] Notes/Report: Hepatitis B Surface Antigen Nonreactive Nonreactive G6PD Ql Reviewed date:04/26/2024 07:43:06 AM Interpretation: Performing Lab:[facility] , [address] [place] [address]. [facility] [address] Notes/Report: G6PD, Qual Normal Normal Interp data: G6PD activity should be interpreted in the context of a patient's hematocrit. Hematocrit < 20% may lead to a falsely deficient result, while hematocrit > 50% may lead to a falsely normal result. Current interpretive data was last revised on 2019. Testing performed by: [facility], [address] [place]., [address] Creatine Kinase Reviewed date:04/25/2024 04:42:28 PM Interpretation: Performing Lab:[facility] , [address] [place] [address]. [facility] [address] Notes/Report: Total CK 81 30-200 Units/L Comprehensive metabolic pane l (CMP) Reviewed date:04/25/2024 04:42:05 PM Interpretation: Performing Lab:[facility] , [address] [place] [address]. [facility] [address] Notes/Report: Sodium 140 135-145 mmol/L Plasma Potassium [...] C4 Reviewed date:04/25/2024 04:38:07 PM Interpretation: Performing Lab:[facility] , [address] [place] [address]. [facility] [address] Notes/Report: Complement, C4 18 10-40 mg/dL Complement C3 Reviewed date:04/25/2024 04:38:07 PM Interpretation: Performing Lab:[facility] , [address] [place] [address]. [facility] [address] Notes/Report: Complement, C3 148 90-180 mg/dL CBC w auto diff Reviewed date:04/25/2024 04:38:07 PM Interpretation: Performing Lab:[facility] , [address] [place] [address]. [facility] [address] Notes/Report: WBC 8.8 3.8-9.9 K/cumm Hgb 11.4 11.9-15.5 g/dL Hct 37.5 35.6-45.5 % Platelet Ct 374 150-400 K/cumm MPV 9.1 9.1-12.3 fL RBC 4.26 3.90-5.20 M/cumm MCV 88.0 81.3-96.4 fL MCH 26.8 27.1-33.3 pg MCHC 30.4 32.3-35.7 g/dL RDW CV 17.4 11.1-14.9 % RDW SD 55.1 35.7-48.1 fL NRBC Abs Auto 0.00 0.00-0.01 K/cumm C Reactive Protein Reviewed date:04/25/2024 04:42:28 PM Interpretation: Performing Lab:[facility] , [address] [place] [address]. [facility] [address] Notes/Report: C-Reactive Protein <3.0 <=10.0 mg/L Anti-CCP (Cyclic Citrullinat ed Peptide Ab) Reviewed date:04/26/2024 11:50:42 AM Interpretation: Performing Lab:[facility] , [address] [place] [address] Notes/Report: CCP Ab <0.5 <=2.9 units/mL Interpretive data Negative: <3 units/mL Positive: > or equal to 3 units/mL Current interpretive data was last revised on 2016. GUS reflex titer pattern ALLISON + dsDNA Reviewed date:04/26/2024 03:11:38 PM Interpretation: Performing Lab:[facility] , [address] [facility]. [facility] [address] Notes/Report: GUS, Qual Positive 1:160 Interpretive Data [...] last revised on 2020. Testing performed by: [facility], [address] [place]., [address] GUS, Tashi 1:160 Testing performed by: [facility], [address] [place]., [address] GUS Pattern 1 Homogeneous Testing performed by: [facility], [address] [place] [address]., [address] CBC W/DIFF Reviewed date:11/08/2024 08:13:09 AM Interpretation:Lab Result Generalized Performing Lab:[facility], [address] [facility], [place], [address] Notes/Report: WBC 9.8 3.5-10.5 10'3/uL RBC 4.26 [...] date:11/08/2024 08:13:09 AM Interpretation:Lab Result Generalized Performing Lab:[facility], [address] [place] [address], [address] Notes/Report: Sodium 136 133-146 mmol/L Potassium 5.0 [...] date:08/07/2024 03:36:05 PM Interpretation:Lab Result Generalized Performing Lab:[facility], [address] [place] [address], [address] Notes/Report: WBC 11.3 3.5-10.5 10'3/uL RBC 4.48 [...] date:08/07/2024 03:36:05 PM Interpretation:Lab Result Generalized Performing Lab:[facility], [address] [facility], [place], [address] Notes/Report: Sodium 136 133-146 mmol/L Potassium 4.6 [...] 13-39 units/L Bilirubin, Total 0.3 0.2-1.2 mg/dL Reason For Referral No Information Medications Medication SIG (Take, Route, Frequency, Duration) Notes Start Date End Date Status Levalbuterol Tartrate 45 MCG/ACT 1 puff as needed Inhalation every 6 hrs Active hydrOXYzine HCl 10 MG 1 tablet as needed Orally twice a day; Duration: 30 day(s) Active Fluticasone Propionate 50 MCG/ACT 1 spray in each nostril Nasally Once a day; Duration: 30 day(s) Active Esomeprazole Magnesium 40 MG as directed Orally Active Ibuprofen 600 MG 1 tablet with food o r milk as needed Orally once a day Active ZyrTEC 10 MG 1 tablet Orally Once a day; Duration: 30 day(s) Active Aleve 220 MG 1-2 tablets prn Orally every 12 hrs Active Methotrexate Sodium 2.5 MG 9 Orally once a week; Duration: 90 days Active Olopatadine HCl 0.6 % 2 sprays in each nostril Nasally Twice a day; Duration: 30 day(s) Active DULoxetine HCl 60 MG 1 capsule Orally twice a day; Duration: 90 days Active Breo Ellipta 200-25 MCG/ACT 1 puff Inhal ation Once a day Active Folic Acid 1 MG 1 tablet Orally Once a day; Duration: 90 days Active Spiriva Respimat 2.5 MCG/ACT 2 puffs Inh alation Once a day Active Vitamin D3 125 MCG (5000 UT) 1 capsule O rally Once a day; Duration: 30 day(s) Active tiZANidine HCl 4 MG TAKE 1 TABLET BY MOUTH TWICE A DAY NEEDED; Duration: 90 Active Vitamin B12 Active Methylphenidate HCl ER 36 MG 1 tablet in the morning Orally Once a day Active busPIRone HCl 15 MG 1 tablet Orally Twic e a day Active Hydroxychloroquine Sulfate 200 MG 1 Orally twice a day; Duration: 90 days 02/11/2025 Active oxyBUTYnin Chloride 5 MG 1 tablet Orally twice a day; Duration: 30 day(s) Active Social History Tobacco Use: [...] Problem Status W/U Status Risk Notes Problem Fibromyalgia (473685332) Fibromyalgia (M79.7) Active confirmed Problem Connective tissue disease (396173690) Connective tissue disease (M35.9) Active confirmed Vital Signs Heart Rate 84 /min 11/07/2024 Temperature 98.2 degrees Fahrenheit 11/07/2024 Height-cm 162.56 cm 11/07/2024 Blood pressure diastolic 74 mm Hg 11/07/2024 Oximetry 95 % 11/07/2024 Weight-kg 102.92 kg 11/07/2024 Height 64 in 11/07/2024 Blood pressure systolic 124 mm Hg 11/07/2024 Weight 226.9 lbs 11/07/2024 BMI 38.94 kg/m2 11/07/2024 Encounters Encounter Location Date Provider Diagnosis [facility] [address] [place] [address] 04/25/2024 Adri Du Pain in unspecified joint M25.50 ; Connective tissue disease M35.9 and Fibromyalgia M79.7 [facility] [address] [place] [address] 05/13/2024 Adri Du Pain in unspecified joint M25.50 ; Connective tissue disease M35.9 ; Fibromyalgia M79.7 and Abnormal urinalysis R82.90 [facility] [address] [place] [address] 08/06/2024 Adri Du Pain in unspecified joint M25.50 ; Connective tissue disease M35.9 ; Fibromyalgia M79.7 and Abnormal urinalysis R82.90 [facility] [address] [place] [address] 11/07/2024 Adri Du Pain in unspecified joint M25.50 ; Connective tissue disease M35.9 ; Fibromyalgia M79.7 and Abnormal urinalysis R82.90 [facility] [address] [place] [address] 04/25/2024 [facility] [address] [place] [address] 05/03/2024 [facility] [address] [place] [address] 05/13/2024 [facility] [address] [place] [address] 06/03/2024 [facility] [address] [place] [address] 08/07/2024 Adri Du Connective tissue disease M35.9 [facility] [address] [place] [address] 11/13/2024 [facility] [address] [place] [address] 11/13/2024 Adri Du Assessments Encounter Date Diagnosis (ICD Code) Assessment [...] (395) 05/13/2024 Next Appt Details Provider Name:Adri Myke, 02/11 01:15:00 PM, [address] [facility] [address] [place], [address], Insurance Providers Payer Name Payer Address Payer Phone Subscriber Number Group Number Insured Name Patient Relationship to Insured Coverage Start Date Coverage End Date [facility] Medicare Advantage [facility] [address] [address] [place] [address] [id number] Sheila Daily Self - patient is the insured Medical (General) History Medical History History ICD Code undifferentiated connective tissue disease, +GUS, COPD, sleep apnea, osteoarthritis, cataract, concussion, TMJ Surgical History Surgery Date(Month/Year) cholecystectomy, hysterectomy, bariatric surgery
--- NOTE | 2025-02-13 18:42 | WPDSIXMINUTE ---
Six Minute Walk Procedure Procedure Performed Pulmonary Stress Test (6 min walk) Six Minute Walk Six Minute Walk: DATE OF SERVICE: 01/22/2025 REQUESTING: Dariel Santana APRN REASON FOR TESTING: Dyspnea SIX MINUTE WALK This test was conducted per ATS guidelines. No oxygen was used during testing. The patient used her wheeled walker during testing. The initial saturation was 96%, and initial heart rate was 76 beats per minute. The patient walked without stopping, completing 365.7 m/1200 ft. The saturation at the end of testing was 94%, and the heart rate was 101 beats per minute. IMPRESSION: This is a normal study. The patient did not require supplemental oxygen with exertion. Sheila Austin MD
== END 2025-01-22 12:06 | disposition home or self-care (01) ==
PROVIDERS: PCP Family Medicine; Visit Provider Nurse Practitioner Family
DX: R06.09 Other forms of dyspnea (principal)
CPT/HCPCS: 94618